=== PATIENT | male | born 1955 | race Caucasian/White ===

== ENCOUNTER → 2017-08-19 16:37 | Outpatient (CLI) | payer BC, SELFPAY ==
[2017-08-19 17:53] LABS: Vitamin B12 1086 pg/mL (211-911)
[2017-08-19 19:49] LABS: ALB/GLOB Ratio 0.9 RATIO (0.9-2.4); AST(SGOT) 31 U/L (15-37); Alanine Aminotransfer ALT/SGPT 52 U/L (16-61); Albumin, Serum 3.7 g/dL (3.2-5.0); Alkaline Phosphatase 72 U/L (45-117); Anion Gap 12 (5-15); BUN 22 mg/dL (7-18); BUN/Creat Ratio 21.2 RATIO (10-20); Calcium,Total 8.5 mg/dL (8.5-10.1); Chloride 103 mmol/L (98-107); Creatinine, Serum 1.04 mg/dL (0.70-1.30); EST Glomerular Filtration Rate 77 mL/min (>60); Est Glom Filt Rate - Afr Amer 93 mL/min (>60); Globulin 3.9 g/dL (2.2-4.2); Glucose 223 mg/dL (74-106); Potassium 4.3 mmol/L (3.5-5.1); Protein, Total 7.6 g/dL (6.4-8.2); Sodium Level 140 mmol/L (136-145); Thyroid Stim Hormone (TSH) 1.66 uIU/mL (0.358-3.74)
== END ==
PROVIDERS: Family Provider Family Medicine; PCP Family Medicine; Visit Provider Family Medicine
DX: R74.8 Abnormal levels of other serum enzymes (principal); E29.1 Testicular hypofunction; E11.65 Type 2 diabetes mellitus with hyperglycemia
CPT/HCPCS: 36415; 80053; 82607; 82746; 84403; 84443

== ENCOUNTER → 2017-09-13 15:29 | Outpatient (CLI) | payer BC, SELFPAY ==
--- NOTE | 2017-09-13 15:31 | RAD_ITS ---
STUDY: X-RAY - RIGHT WRIST REASON FOR EXAM: Male, 62 years old. Pain TECHNIQUE: 3 view(s) of the wrist were obtained. COMPARISON: None. FINDINGS: Normal visualized distal radius and ulna. Normal radiocarpal articulation. Normal distal radioulnar articulation. Normal carpal bones. Normal carpal articulations. Normal carpometacarpal articulation of the thumb. Normal second through fifth carpometacarpal articulations. Normal visualized metacarpal bones. The soft tissue structures are unremarkable. RAD/Wrist min 3 Views IMPRESSION: Normal x-ray examination of the wrist. Electronically Signed: Filipe Isbell MD at 22:01 EDT Tel , Service support ,
--- NOTE | 2017-09-13 15:31 | RAD_ITS ---
STUDY: X-RAY - LEFT WRIST REASON FOR EXAM: Male, 62 years old. Pain TECHNIQUE: 3 view(s) of the wrist were obtained. COMPARISON: None. FINDINGS: Prominent ossification at the dorsal aspect of the carpometacarpal joints may represent carpal boss. Normal visualized distal radius and ulna. Normal radiocarpal articulation. Normal distal radioulnar articulation. Normal carpal bones. Normal carpal articulations. Normal carpometacarpal articulation of the thumb. Normal visualized metacarpal bones. The soft tissue structures are unremarkable. RAD/Wrist min 3 Views IMPRESSION: Suggestion of carpal boss Electronically Signed: Filipe Isbell MD at 22:02 EDT Tel , Service support ,
== END ==
PROVIDERS: Family Provider Family Medicine; PCP Family Medicine; Visit Provider Orthopaedic Surgery
DX: M25.532 Pain in left wrist (principal); M25.531 Pain in right wrist
CPT/HCPCS: 73110

== ENCOUNTER 2017-09-21 11:19 | Day surgery (SDC) | payer BC, SELFPAY ==
[2017-09-21 11:47] VITALS: BP 135/77; PULSE 92; RESP 14; TEMP 36.6; O2SAT 100; BMI 44.4
[2017-09-21 12:31] LABS: Bedside Glucose 162 mg/dL (70-110)
[2017-09-21] MEDS: Cefazolin 2 GM in 0.9% Normal Saline 100 ML IV (13:54)
--- NOTE | 2017-09-21 14:08 | PCM.DC.ORTHO ---
Discharge Diet: No Restrictions - keep dressing clean, dry, and intact; follow up in 2 weeks, call with concerns Discharge Activity: May Not Drive May shower in (days): 1 Ice area for (Minutes): 20 - Every hour while awake. Weight Bearing Status: Weight bearing as tolerated Keep extremity elevated above heart level: Operative Extremity Call your doctor if your incision/area has: Continuous Slow Oozing, Sudden Increased Bleeding, Increased Pain/ Swelling, Increased Redness, Foul Smelling Discharge Call your doctor if you observe: Fever of 101 or Higher, Coldness, Increased Pain, Numbness or Tingling, Change in Color, Calf discomfort Allergies/Adverse Reactions: Allergies No Known Allergies Allergy (Verified 09/19/17 14:09) Medications to take at Discharge Metformin HCl [Glucophage] 500 mg PO BIDCM 12/06/14 Sertraline HCl [Zoloft] 100 mg PO DAILY 12/06/14 Testosterone [Androgel] 5 gm TD DAILY 12/06/14 buPROPion XL [Wellbutrin Xl] 150 mg PO DAILY 12/06/14 losartan 25 mg tablet 25 mg PO DAILY tab 07/12/17 gabapentin 300 mg capsule 300 mg PO TID 09/13/17 Aspirin E.C. [Ecotrin] 81 mg PO DAILY@0800 09/19/17 Empagliflozin [Jardiance] 25 mg PO DAILY 09/19/17 Gluc/Bebeto-MSM#1/C/David/Adonis/Bor [Osteo Bi-Flex Caplet] 1 each PO BID 09/19/17 Ibuprofen [Motrin] 400 mg PO DAILY 09/19/17 Liraglutide [Victoza 2-Tutu] 18 mg SQ DAILY 09/19/17 Melatonin/Pyridoxine HCl (B6) [Melatonin 3 mg Tablet] 1 each PO QHS PRN 09/19/17 Multivitamin [Multiple Vitamins] 1 each PO DAILY 09/19/17 Niacinamide [Niacin] 1,000 mg PO QHS 09/19/17 Acetaminophen/Codeine #3 [Tylenol #3 Tablet] 1 - 2 tablet PO Q6H PRN PRN #30 tablet 09/21/17 The following prescriptions were given: Acetaminophen/Codeine #3 [Tylenol #3 Tablet] 1 - 2 tablet PO Q6H PRN PRN #30 tablet PRN Reason: Pain Primary Care Physician: Cornelius Monteiro MD [Primary Care Provider] - Please Follow Up With: Fauzia Garcia, - [phone]
--- NOTE | 2017-09-21 14:30 | OP.PCM_ITS ---
Report of Operation Date of Procedure: 09/21/17 Pre-Operative Diagnosis: bilateral carpal tunnel syndrome Post-Operative Diagnosis: same Surgery/Procedure Performed:: right carpal tunnel release, left carpal tunnel injection Type of Anesthesia:: Wilian Navarro Anesthesiologist: Sherwin Ward Estimated Blood Loss (mL): none Fluids Replaced: 500cc Description of Procedure: Preoperative note Patient is a 62 yo male} patient with nerve conduction study confirming bilateral carpal tunnel syndrome. Patient failed conservative treatment for this carpal tunnel elected proceed with right carpal tunnel release. Risks benefits and alternatives surgery discussed with patient. Risks including but not limited to blood loss, blood clot, infection, neurovascular injury, failure procedure, loss of life and loss of limb. Patient is aware like proceed with right carpal tunnel release left carpal tunnel injection . Operative note Patient seen and examined preoperative holding area. Right hand was marked. History and physical and consent reviewed. Patient was brought to the operating room placed supine on the operating table. Sign in, anesthesia, antibiotics were administered. Right upper extremity was prepped and draped after Wilian block was initiated. All bony prominences well-padded SCDs placed on bilateral lower extremities. We marked out our incisions for our carpal tunnel release at the intersection of Selin's line in the fourth ray flexed. We extended about a centimeter and a half. Timeout was performed. We then checked ensure that the [place] block was working with pickups which it was. We then used a 15 blade to make a skin incision. We then dissected down tenotomy syllable of the transverse carpal ligament. We then used a new 15 blade cut through the transverse carpal ligament down to the level of the median nerve. We then further released the median nerve the combination of the 15 blade and tenotomies. The nerve was grayish in color and adherent to the transverse carpal ligament volarly. We released the transverse carpal ligament distally to the fat pad and then proximally under standard technique. We then palpated to ensure that we released all of the transverse carpal ligament which we did. We irrigated the incision with copious amounts of sterile saline. All bleeders were coagulated. The incision was closed with interrupted 4-0 nylon stitches. Tourniquet was deflated for total working time of 20 minutes. We then injected the left carpal tunnel under sterile technique Band-Aid was applied to injection site. Patient tolerated procedure well there were no complications. Patient transferred to recovery room in stable condition. Postoperative note Hospital pharmacy has prescription Leave dressing clean dry and intact Follow-up in 2 weeks This note was generated with [employer] dictation software. It may contain incorrect words, spelling, and punctuation that were not noted in checking the note before signing.
[2017-09-21] MEDS: Bupivacaine Mpf 0.5% 30 ML VIAL (14:35)
[2017-09-21] MEDS: Triamcinolone Acetonide 40 MG/ML Vial (14:35)
[2017-09-21] MEDS: Mupirocin Ointment 22gm Tube 1 APPLIC (14:36)
[2017-09-21 14:45] VITALS: BP 135/77; BP 137/91; PULSE 89; RESP 18; TEMP 36.7; O2SAT 100
[2017-09-21 14:50] VITALS: BP 135/77; BP 136/91; PULSE 89; RESP 18; O2SAT 98
[2017-09-21 14:55] VITALS: BP 132/90; BP 135/77; PULSE 87; RESP 18; O2SAT 98
[2017-09-21 15:00] VITALS: BP 133/86; BP 135/77; PULSE 84; RESP 18; TEMP 36.8; O2SAT 98
[2017-09-21 15:39] VITALS: BP 135/77
== END 2017-09-21 15:40 | disposition home or self-care (01) ==
LOC: SDC 11:19 → AC 11:22
PROVIDERS: Family Provider Family Medicine; PCP Family Medicine; Visit Provider Orthopaedic Surgery
PROC: (CPT 64721; principal; 2017-09-21 12:50)
DX: G56.03 Carpal tunnel syndrome, bilateral upper limbs (principal); E11.9 Type 2 diabetes mellitus without complications; F32.9 Major depressive disorder, single episode, unspecified; I10 Essential (primary) hypertension
CPT/HCPCS: 01810; 20526; 64721; 82962; J7120

== ENCOUNTER → 2018-02-11 08:27 | Outpatient (CLI) | payer BC, SELFPAY ==
[2018-02-11 09:29] LABS: AST(SGOT) 29 U/L (15-37); Alanine Aminotransfer ALT/SGPT 42 U/L (16-61); Albumin, Serum 3.6 g/dL (3.2-5.0); Alkaline Phosphatase 70 U/L (45-117); Anion Gap 11 (5-15); BUN 16 mg/dL (7-18); BUN/Creat Ratio 17.3 RATIO (10-20); Calcium,Total 8.5 mg/dL (8.5-10.1); Chloride 105 mmol/L (98-107); Cholesterol 159 mg/dL (200); Creatinine, Serum 0.92 mg/dL (0.70-1.30); EST Glomerular Filtration Rate 88 mL/min (>60); Est Glom Filt Rate - Afr Amer 107 mL/min (>60); Globulin 3.7 g/dL (2.2-4.2); Glucose 144 mg/dL (74-106); High Density Lipoprotein 36 mg/dL; Potassium 4.2 mmol/L (3.5-5.1); Protein, Total 7.3 g/dL (6.4-8.2); Sodium Level 142 mmol/L (136-145); Triglycerides 308 mg/dL; Very Low Density Lipoprotein 62 mg/dL (5-40)
== END ==
PROVIDERS: Family Provider Family Medicine; PCP Family Medicine; Visit Provider Family Medicine
DX: E29.1 Testicular hypofunction (principal); E11.65 Type 2 diabetes mellitus with hyperglycemia
CPT/HCPCS: 36415; 80053; 80061; 84403

== ENCOUNTER → 2018-10-28 09:49 | Outpatient (CLI) | payer BC, SELFPAY ==
[2018-10-28 10:56] LABS: ALB/GLOB Ratio 0.9 RATIO (0.9-2.4); AST(SGOT) 21 U/L (15-37); Alanine Aminotransfer ALT/SGPT 33 U/L (16-61); Albumin, Serum 3.5 g/dL (3.2-5.0); Alkaline Phosphatase 68 U/L (45-117); Anion Gap 7 (5-15); BUN 22 mg/dL (7-18); BUN/Creat Ratio 24.9 RATIO (10-20); Calcium,Total 8.2 mg/dL (8.5-10.1); Chloride 104 mmol/L (98-107); Cholesterol 155 mg/dL (200); Creatinine, Serum 0.88 mg/dL (0.70-1.30); EST Glomerular Filtration Rate 93 mL/min (>60); Est Glom Filt Rate - Afr Amer 112 mL/min (>60); Globulin 3.7 g/dL (2.2-4.2); Glucose 140 mg/dL (74-106); High Density Lipoprotein 38 mg/dL; PSA,Total - Annual Screen 0.66 ng/mL (0.00-4.00); Potassium 4.3 mmol/L (3.5-5.1); Protein, Total 7.2 g/dL (6.4-8.2); Sodium Level 139 mmol/L (136-145); Triglycerides 392 mg/dL; Very Low Density Lipoprotein 78 mg/dL (5-40)
== END ==
PROVIDERS: Family Provider Family Medicine; PCP Family Medicine; Referring Provider Family Medicine; Visit Provider Family Medicine
DX: E11.65 Type 2 diabetes mellitus with hyperglycemia (principal); R36.1 Hematospermia
CPT/HCPCS: 36415; 80053; 80061; 84153; G0103

== ENCOUNTER → 2019-06-30 07:15 | Outpatient (CLI) | payer BC, SELFPAY ==
[2019-06-30 08:35] LABS: Hematocrit 42.8 % (40-54); Hemoglobin 13.7 g/dL (13.0-16.5); Mean Corpuscular Hgb 29.3 pg (27.0-32.0); Mean Corpuscular Volume 91.6 fL (80-94); Mean Platelet Vol. 9.8 fl (6.2-12.0); Platelet Count 250 K/mm3 (150-450); RBC Distribution Width CV 13.2 % (11.6-14.6); RBC Distribution Width SD 44.2 fl (35.1-43.9); Red Blood Count 4.67 M/mm3 (4.6-6.2); White Blood Count 7.6 K/mm3 (4.4-11.0)
[2019-06-30 09:28] LABS: AST(SGOT) 25 U/L (15-37); Alanine Aminotransfer ALT/SGPT 34 U/L (16-61); Albumin, Serum 3.8 g/dL (3.2-5.0); Alkaline Phosphatase 71 U/L (45-117); Anion Gap 5 (5-15); BUN 16 mg/dL (7-18); BUN/Creat Ratio 18.8 RATIO (10-20); Calcium,Total 8.6 mg/dL (8.5-10.1); Chloride 107 mmol/L (98-107); Cholesterol 130 mg/dL (200); Creatinine, Serum 0.85 mg/dL (0.70-1.30); EST Glomerular Filtration Rate 96 mL/min (>60); Est Glom Filt Rate - Afr Amer 117 mL/min (>60); Globulin 3.8 g/dL (2.2-4.2); Glucose 150 mg/dL (74-106); High Density Lipoprotein 40 mg/dL; Potassium 4.1 mmol/L (3.5-5.1); Protein, Total 7.6 g/dL (6.4-8.2); Sodium Level 141 mmol/L (136-145); Thyroid Stim Hormone (TSH) 1.48 uIU/mL (0.358-3.74); Triglycerides 132 mg/dL; Very Low Density Lipoprotein 26 mg/dL (5-40)
[2019-07-02 09:02] LABS: Vitamin B12 558 pg/mL (211-911)
== END ==
PROVIDERS: Family Provider Family Medicine; PCP Family Medicine; Referring Provider Family Medicine; Visit Provider Family Medicine
DX: E29.1 Testicular hypofunction (principal); E11.65 Type 2 diabetes mellitus with hyperglycemia; G62.9 Polyneuropathy, unspecified
CPT/HCPCS: 36415; 80053; 80061; 82607; 84403; 84443; 85027

== ENCOUNTER 2019-10-26 18:42 | Emergency (ER) | payer BC, SELFPAY ==
[2019-10-26 18:43] VITALS: BP 155/81; PULSE 57; RESP 18; TEMP 36.8; O2SAT 98
[2019-10-26 18:44] VITALS: BP 155/81; PULSE 100; RESP 18; TEMP 36.8; O2SAT 98; BMI 38.5
--- NOTE | 2019-10-26 19:24 | EKG12_ITS ---
Test Reason : CP Blood Pressure : / mmHG Vent. Rate : 086 BPM Atrial Rate : 086 BPM P-R Int : 174 ms QRS Dur : 110 ms QT Int : 348 ms P-R-T Axes : 059 004 019 degrees QTc Int : 416 ms Sinus rhythm with occasional Premature ventricular complexes Otherwise normal ECG Confirmed by MONICA MALAVE, ERVIN ([id number]), editorial cartoonist AMI RAYGOZA ([id number]) on 10/29/2019 10:10:56 AM Referred By: KELLY Confirmed By:ERVIN ANDERSON MD
[2019-10-26] MEDS: Aspirin 81 MG TAB.CHEW 324 MG PO (19:48)
--- NOTE | 2019-10-26 19:49 | ED.VIS.GEN ---
History of Present Illness Chief Complaint: Chest Other Detail of Chief Complaint: Fever, chest heaviness Informant: Patient Onset: Days Narrative: Patient presents with fever for the past 3 days. T-max has been 102. 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 He is unsure if this is related to his fever. Fever has been well controlled with Tylenol and ibuprofen. Today he has noted some chest heaviness. He declines to call this chest pain. He does not have cough. He states he had some mild shortness of breath when walking up the hill to the emergency entrance, but otherwise has not noted shortness of breath today. He denies history of cardiac disease. No history of PE. - Past Medical History (1) Diabetes Status: Chronic (2) Hypertension Status: Chronic Past Medical History - Allergies and Home Meds Allergies/Adverse Reactions: Allergies No Known Allergies Allergy (Verified 10/26/19 18:43) Primary Care Physician: Cornelius Monteiro MD [Primary Care Provider] - Prior records reviewed: Yes Smoking Status: Never smoker Review of Systems General: Reports: Fever Eyes: Denies: Visual changes - bilaterally ENT: Denies: Bilateral ear pain Cardiovascular: Reports: Chest pain. Denies: Palpitations, Heart racing Respiratory: Reports: Dyspnea - With exertion up a hill. Denies: Cough Gastrointestinal: Denies: Abdominal pain, Nausea, Vomiting, Diarrhea Musculoskeletal: Reports: Swelling, Extremity Pain Skin: Reports: Wounds Neurological: Denies: Headache Hematologic: Denies: Easy bruising, Easy bleeding Allergy: Denies: Uticaria Physical Exam Vital Signs/Narrative: Vital Signs Temp Pulse Resp BP Pulse Ox 10/26/19 18:44 98.3 F 100 18 155/81 H 98 10/26/19 18:43 98.3 F 57 L 18 155/81 H 98 Inital Vital Signs reviewed: Yes General: Well nourished, Well developed Head: Normocephalic ENT: Moist mucous membranes Neck: Supple Cardiovascular: Regular rate, Regular rhythm Respiratory: No distress, CTA bilaterally Abdomen: Soft, Nontender Extremities: - - Patient does have a round small ulceration to the left anterior lower knee. No fluctuance or drainage noted. He does have evidence of cellulitis to the left lower extremity. Calf is swollen and slightly tense. Strong distal pulses are noted. Neurological: Alert, Oriented x3 Psychological: Normal affect Diagnostic/Tx/Re-eval Impressions Chest X-Ray 10/26/19 19:54 IMPRESSION: Normal x-ray examination of the chest. Electronically Signed: Aman Garcia, at 20:41 EDT Tel , Service support , 10/26/19 19:54 Chest 1 View (Portable) [RAD] Stat Laboratory Results 10/26/19 10/26/19 10/26/19 19:45 19:45 19:45 WBC 9.2 RBC 4.64 Hgb 13.3 Hct 41.4 MCV 89.2 MCH 28.7 MCHC 32.1 RDW Std Deviation 46.8 H RDW Coeff of Nanci 14.6 Plt Count 187 MPV 9.8 Immature Gran % (Auto) 0.500 Neut % (Auto) 68.4 Lymph % (Auto) 19.9 [place] % (Auto) 10.4 H Eos % (Auto) 0.4 Baso % (Auto) 0.4 Absolute Neuts (auto) 6.3 Absolute Lymphs (auto) 1.83 Nucleated RBC % 0 Sodium 137 Potassium 3.5 Chloride 103 Carbon Dioxide 29.0 Anion Gap 5 BUN 18 Creatinine 0.94 Estim Creat Clear Calc 83.05 Est GFR (MDRD) Af Amer 104 Est GFR (MDRD) Non-Af 86 BUN/Creatinine Ratio 19.1 Glucose 111 H Lactic Acid 1.6 Calcium 8.7 Troponin I < 0.015 - EKG Initial EKG Interpretation: Sinus Rhythm - Sinus at 86 with occasional PVCs. No acute ischemia. - Medical Decision Making Patient was given aspirin on arrival. Laboratory evaluation is reviewed with the patient. Chest x-ray is normal. Cardiac enzymes are negative. Venous ultrasound of the left leg was also obtained and does not really show evidence of clots. I do feel the patient's fever is coming from the leg infection. He will be treated with Bactrim and Keflex, first doses given here. 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 ED Disposition - Plan for ED Patient: Disposition: Home or Assisted Living Diagnosis: Cellulitis Instructions: ED Cellulitis Prescriptions: Smz/Tmp Ds [Bactrim Ds] 1 tab PO BID #20 tab Transmission Status: Pending to [facility] Cephalexin [Keflex] 500 mg PO Q6 #40 cap Transmission Status: Pending to [facility] Referrals: Cornelius Monteiro MD [Primary Care Provider] - 5-7 Days
--- NOTE | 2019-10-26 19:54 | RAD_ITS ---
STUDY: X-RAY CHEST REASON FOR EXAM: Male, 64 years old. chest pain with sob TECHNIQUE: Portable chest COMPARISON: CT abdomen and pelvis 12/06/2014. FINDINGS: The lungs are clear and expanded. There is no demonstrated pleural abnormality. Normal size heart. Normal mediastinum and bon. Normal visualized pulmonary arteries. Normal visualized aortic arch and descending thoracic aorta. Normal visualized thoracic spine. Normal visualized ribs, clavicles, and shoulders. There is no demonstrated abnormality of the visualized soft tissue structures of the upper abdomen. RAD/Chest 1 View (Portable) IMPRESSION: Normal x-ray examination of the chest. Electronically Signed: Aman Garcia, at 20:41 EDT Tel , Service support ,
[2019-10-26 20:03] LABS: Absolute Lymphocyte Count 1.83 X10^3/uL (0.83-4.51); Absolute Neutrophil Count 6.3 X10^3/uL (2.0-7.7); Basophil# 0.04 X10^3/uL; Basophil% 0.4 % (0-1); Eosinophil# 0.04 X10^3/uL; Eosinophils% 0.4 % (0-5); Hematocrit 41.4 % (40-54); Hemoglobin 13.3 g/dL (13.0-16.5); Lymphocyte # 1.83 X10^3/ul (4.0); Lymphocyte % 19.9 % (19-41); Mean Corp Hgb Conc 32.1 g/dL (32-36); Mean Corpuscular Hgb 28.7 pg (27.0-32.0); Mean Corpuscular Volume 89.2 fL (80-94); Mean Platelet Vol. 9.8 fl (6.2-12.0); Monocyte# 0.96 X10^3/uL; Monocyte% 10.4 % (0-10); NRBC Flagged by Analyzer 0 % (0-5); Neutrophil # 6.29 X10^3/uL (2.7-7.7); Neutrophil % 68.4 % (47-70); Platelet Count 187 K/mm3 (150-450); RBC Distribution Width CV 14.6 % (11.6-14.6); RBC Distribution Width SD 46.8 fl (35.1-43.9); Red Blood Count 4.64 M/mm3 (4.6-6.2); White Blood Count 9.2 K/mm3 (4.4-11.0)
--- NOTE | 2019-10-26 20:15 | US_ITS ---
STUDY: VENOUS DOPPLER ULTRASOUND - LEFT LOWER EXTREMITY REASON FOR EXAM: Male, 64 years old. LEFT LEG SWELLING TECHNIQUE: Ultrasound evaluation of the deep vein system to include goldtsein-scale imaging and compression was performed. Goldstein-scale imaging and Doppler sonographic evaluation, including duplex spectral analysis and qualitative color flow sonography, was performed. COMPARISON: None. FINDINGS: Common Femoral Vein: Normal compression, spontaneity and augmentation. Normal color Doppler. Common Femoral Vein/Greater Saphenous Junction: Normal compression, spontaneity and augmentation. Normal color Doppler. Femoral Proximal: Normal compression, spontaneity and augmentation. Normal color Doppler. Femoral Middle: Normal compression, spontaneity and augmentation. Normal color Doppler. Femoral Distal: Normal compression, spontaneity and augmentation. Normal color Doppler. Popliteal Vein: Normal compression, spontaneity and augmentation. Normal color Doppler. Posterior Tibial Vein: Limited evaluation due to a cutaneous edema Normal compression, spontaneity and augmentation. Normal color Doppler. Peroneal Vein: Limited evaluation due to subcutaneous edema Normal compression, spontaneity and augmentation. Normal color Doppler. There is subcutaneous edema of the left lower extremity. there is normal flow, compression and augmentation of the right common femoral vein. US/Venous Duplex Imag/Limited/Uni IMPRESSION: No Deep venous thrombosis Limited evaluation of the posterior tibial and peroneal veins due to subcutaneous edema. Electronically Signed: Aman Garcia, at 22:11 EDT Tel , Service support ,
[2019-10-26 20:18] LABS: Anion Gap 5 (5-15); BUN 18 mg/dL (7-18); BUN/Creat Ratio 19.1 RATIO (10-20); Calcium,Total 8.7 mg/dL (8.5-10.1); Chloride 103 mmol/L (98-107); Creatinine, Serum 0.94 mg/dL (0.70-1.30); EST Glomerular Filtration Rate 86 mL/min (>60); Est Glom Filt Rate - Afr Amer 104 mL/min (>60); Estimated Creatinine Clearance 83.05 ml/min; Glucose 111 mg/dL (74-106); Potassium 3.5 mmol/L (3.5-5.1); Sodium Level 137 mmol/L (136-145)
[2019-10-26 20:23] LABS: Lactic Acid 1.6 mmol/L (0.4-1.9)
[2019-10-26 20:43] VITALS: BP 103/83; PULSE 97; RESP 21; O2SAT 100
[2019-10-26 21:49] VITALS: BP 120/73; PULSE 97; RESP 18; O2SAT 96
[2019-10-26] MEDS: Smz/Tmp Ds Tablet 1 TABLET PO (21:50)
[2019-10-26] MEDS: Cephalexin 250 MG Capsule 500 MG PO (21:50)
== END 2019-10-26 21:53 | disposition home or self-care (01) ==
PROVIDERS: Emergency Provider Emergency Medicine; PCP Family Medicine
DX: L03.116 Cellulitis of left lower limb (principal); E11.9 Type 2 diabetes mellitus without complications; I10 Essential (primary) hypertension
CPT/HCPCS: 71045; 80048; 83605; 84484; 85025; 87040; 93005; 93971; 99284; A4216

== ENCOUNTER → 2020-03-21 11:08 | Outpatient (CLI) | payer BC, SELFPAY ==
[2020-03-21 12:43] LABS: ALB/GLOB Ratio 0.9 RATIO (0.9-2.4); AST(SGOT) 14 U/L (15-37); Alanine Aminotransfer ALT/SGPT 20 U/L (16-61); Albumin, Serum 3.5 g/dL (3.2-5.0); Alkaline Phosphatase 61 U/L (45-117); Anion Gap 6 (5-15); BUN 16 mg/dL (7-18); BUN/Creat Ratio 19.7 RATIO (10-20); Calcium,Total 8.7 mg/dL (8.5-10.1); Chloride 105 mmol/L (98-107); Cholesterol 136 mg/dL (200); Creatinine, Serum 0.81 mg/dL (0.70-1.30); EST Glomerular Filtration Rate 102 mL/min (>60); Est Glom Filt Rate - Afr Amer 123 mL/min (>60); Globulin 3.8 g/dL (2.2-4.2); Glucose 109 mg/dL (74-106); High Density Lipoprotein 37 mg/dL; PSA,Total - Annual Screen 0.79 ng/mL (0.00-4.00); Potassium 3.8 mmol/L (3.5-5.1); Protein, Total 7.3 g/dL (6.4-8.2); Sodium Level 140 mmol/L (136-145); Thyroid Stim Hormone (TSH) 1.09 uIU/mL (0.358-3.74); Triglycerides 172 mg/dL; Very Low Density Lipoprotein 34 mg/dL (5-40)
== END ==
PROVIDERS: PCP Family Medicine; Referring Provider Family Medicine; Visit Provider Family Medicine
DX: E11.65 Type 2 diabetes mellitus with hyperglycemia (principal); E29.1 Testicular hypofunction
CPT/HCPCS: 36415; 80053; 80061; 84153; 84403; 84443; G0103

== ENCOUNTER → 2020-06-17 17:50 | Outpatient (CLI) | payer BC, SELFPAY | PROVIDERS: PCP Family Medicine; Visit Provider Family Medicine | DX: Z20.828 Contact with and (suspected) exposure to other viral communicable diseases (principal) | CPT/HCPCS: 87635; U0003 ==

== ENCOUNTER 2020-11-25 07:20 | Emergency (ER) | payer BC, SELFPAY ==
[2020-11-25 07:21] VITALS: BP 166/89; PULSE 100; RESP 16; TEMP 35.9; O2SAT 96; BMI 40.1
[2020-11-25 07:24] VITALS: BP 166/89; PULSE 100; RESP 16; TEMP 35.9; O2SAT 96
[2020-11-25 07:32] VITALS: BP 147/92; PULSE 72; RESP 18; O2SAT 96
--- NOTE | 2020-11-25 07:32 | CT_ITS ---
STUDY: CT ABDOMEN AND PELVIS WITHOUT CONTRAST REASON FOR EXAM: Male, 65 years old. Right flank pain. Dysuria. History of kidney stones. RADIATION DOSAGE (If Supplied By Facility): CTDIvol = ( 26.59 ) mGy, DLP = ( 1313.05 ) mGycm TECHNIQUE: Transaxial images were obtained from the dome of the diaphragm to the symphysis pubis without oral contrast, and without intravenous contrast. Sagittal and coronal images were reconstructed. Individualized dose optimization techniques were used for this CT. COMPARISON: Comparison is made with prior study dated 12/06/2014. FINDINGS: The visualized lung bases are unremarkable. The visualized portions of the heart are within normal limits. There is decreased attenuation of the liver consistent with steatosis. Normal gallbladder and extrahepatic biliary system. There are multiple benign calcified granulomata of the spleen. There is diffuse atrophy of the pancreas. Normal bilateral adrenal glands. There is a mild right perinephric stranding. There is engorgement of the right kidney. Punctate calcification in the lower pole calyx of the right kidney. Mild degree of the right hydronephrosis due to a 2.5 mm calculus in the proximal portion of the right ureter just distal to the ureteral pelvic junction. Normal left kidney. There is a small hiatal hernia. Normal small intestine. Normal colon. The appendix is visualized and appears normal. Normal abdominal aorta. Normal inferior vena cava. Normal retroperitoneum. Normal urinary bladder. Normal abdominal wall. There are diffuse degenerative changes of the visualized lumbar spine. CT/Abdomen/Pelvis without Cont IMPRESSION: Mild degree of right perinephric stranding and engorgement of the right kidney. 2.5 mm calculus in the proximal portion of the right ureter just distal to the right ureteropelvic junction. Fatty infiltration of the liver. Atrophy of the pancreas. Electronically Signed: Mario Bell MD at 8:18 EDT , Service support ,
--- NOTE | 2020-11-25 07:32 | ED.VIS.GI ---
HPI HPI - GI History of Present Illness Chief Complaint: Flank Pain Narrative Narrative: Patient presenting for evaluation secondary to flank pain and concern for kidney stone. Patient does have a history of prior kidney stone in the past, approximately 10 years ago. Patient states that he developed symptoms yesterday that are consistent with his prior kidney stone. Is associated with right-sided flank pain that radiates down to his right groin. He states that it is a sharp type pain. Patient states that it also has been associated with some urinary hesitancy, he denies any hematuria. Denies any fevers. Denies nausea vomiting or diarrhea associated with this. No real exacerbating relieving factors. Review of systems otherwise negative. [facility] Medical History Diabetes Hypertension Home Medications metformin 500 mg PO BIDCM 12/06/14 [History Last Taken Unknown] testosterone 5 gm TD DAILY 12/06/14 [History Last Taken Unknown] losartan 25 mg tablet 25 mg PO DAILY tab 07/12/17 [History Last Taken 09/21/17 07:30 1] gabapentin 300 mg capsule 300 mg PO TID 09/13/17 [History Last Taken Unknown] Liraglutide [Victoza 2-Tutu] 18 mg SQ DAILY 09/19/17 [History Last Taken 09/19/17 21:00 1] [id number] [Osteo Bi-Flex Caplet] 1 ea PO BID 09/19/17 [History Last Taken 09/20/17 07:00 1] ibuprofen 400 mg PO DAILY 09/19/17 [History Last Taken Unknown] multivitamin [Multiple Vitamins] 1 ea PO DAILY 09/19/17 [History Last Taken Unknown] cephalexin 500 mg PO Q6 #40 cap 10/26/19 [Rx Last Taken Unknown] sulfamethoxazole-trimethoprim 1 tab PO BID #20 tab 10/26/19 [Rx Last Taken Unknown] hydrocodone-acetaminophen 1 tab PO Q6H PRN PRN 3 Days #12 tablet 11/25/20 [Rx Last Taken Unknown] sulfamethoxazole-trimethoprim [Bactrim DS] 1 tab PO BID #20 tab 11/25/20 [Rx Last Taken Unknown] tamsulosin [Flomax] 0.4 mg PO DAILY #7 cap 11/25/20 [Rx Last Taken Unknown] Allergy/AdvReac Type Severity Reaction Status Date / Time No Known Allergies Allergy Verified 11/25/20 07:21 Family History Father Diabetes Cancer Mother CAD (coronary artery disease) Brother Cancer Surgical History H/O hernia repair s/p right carpal tunnel release Social History Smoking Status: Never smoker ROS ROS ED Constitutional Constitutional ED: Denies chills or fever(s) ENT ENT ED: Denies sore throat Cardiovascular Cardiovascular: Denies chest pain Respiratory/Chest Respiratory/Chest: Denies cough or dyspnea Gastrointestinal Gastrointestinal: Denies abdominal pain, constipation, diarrhea or nausea Genitourinary Genitourinary ED: Reports other Details: Decreased urine, flank pain ; Denies dysuria, hematuria or urinary frequency Musculoskeletal Musculoskeletal: Denies myalgias Integumentary Denies rash Neurologic Neurologic: Denies paresthesias or weakness Psychiatric Psychiatric: Denies depression Endocrine Endocrinology: Denies polyuria Hematologic/Lymphatic Hematologic/Lymphatic: Denies easy bleeding or easy bruising Allergic/Immunologic Allergic/Immunologic ED: Denies urticaria EXAM Physical Exam Const Vital Signs: 11/25/20 07:21 11/25/20 07:24 Temperature 96.7 F L 96.7 F L Temperature Source Temporal Temporal Pulse Rate 100 100 Respiratory Rate 16 16 Blood Pressure 166/89 H 166/89 H Blood Pressure Mean 114 114 Pulse Ox 96 96 Oxygen Delivery Method Room Air Room Air Positive well nourished, well developed and obese General Appearance ED: well developed and NAD Nutritional Appearance: obese HEENT normocephalic and atraumatic Eyes EOMs intact bilaterally General Eye ED: Negative for pale conjunctiva or scleral icterus Neck supple Resp normal respiratory effort and clear to auscultation bilaterally Cardio regular rhythm, no murmurs and peripheral pulses 2+ throughout Cardio Narrative: 2+ radial pulses bilaterally symmetric Rate: tachycardic GI non-tender, non-distended and no masses GI Narrative: Patient complains of a pressure sensation with palpation of his right abdomen but this is not tenderness and its not associated with a guarding rebound or rigidity. Palpation: soft; Negative for guarding, rigid or rebound tenderness present Extremity full ROM Extremity Narrative: 2+ DP pulses bilaterally symmetric General Extremety ED: Negative for edema General Extremity: Negative for edema Neuro moves all extremities and no sensory deficits noted Sensorium / Orientation: alert, oriented to person, oriented to place and oriented to time Motor Exam: strength 5/5 throughout Psych mental status grossly normal Skin Rashes: no rashes MDM MDM MDM Narrative Medical decision making narrative: Patient presented for evaluation secondary to flank pain. Patient stated that this was consistent with prior kidney stones. Patient was treated with Zofran Toradol and fluids in the emergency department repeat evaluation showed almost complete resolution of the patient's pain. Patient does not have evidence of leukocytosis, his chemistry panel shows no electrolyte derangement but does show a mild elevation of his creatinine from 0.8-1.1. Patient's urine test demonstrates greater than 100 reds, 50-100 whites, and 3+ bacteria. This was cultured and pelvis demonstrates a 2-1/2 mm proximal right-sided ureteral stone with some hydronephrosis. Patient at this point does not have signs of sepsis, I do believe that he is appropriate for outpatient management. Patient was given a dose of Rocephin in the emergency department. Patient will be discharged with a course of [place], Flomax, and Bactrim. He was given strict return instructions, he will follow up with urology. Lab Data Labs: Laboratory Results - last 24 hr 11/25/20 11/25/20 11/25/20 07:35 07:35 09:00 WBC 7.4 RBC 4.92 Hgb 14.5 Hct 45.6 MCV 92.7 MCH 29.5 MCHC 31.8 L RDW Std Deviation 46.2 H RDW Coeff of Nanci 13.7 Plt Count 206 MPV 9.7 Immature Gran % (Auto) 0.700 Neut % (Auto) 65.8 Lymph % (Auto) 21.5 Terry % (Auto) 10.5 H Eos % (Auto) 0.8 Baso % (Auto) 0.7 Absolute Neuts (auto) 4.9 Absolute Lymphs (auto) 1.60 Nucleated RBC % 0 Sodium 137 Potassium 3.6 Chloride 106 Carbon Dioxide 25.0 Anion Gap 6 BUN 18 Creatinine 1.11 Estim Creat Clear Calc 69.42 Est GFR (MDRD) Af Amer 86 Est GFR (MDRD) Non-Af 71 BUN/Creatinine Ratio 16.2 Glucose 213 H Calcium 8.1 L Urine Color Brown Urine Clarity Cloudy Urine pH 5.0 Ur Specific [place] 1.025 Urine Protein 30 H Urine Glucose (UA) 100 H Urine Ketones 5 H Urine Occult Blood 250 H Urine Nitrite Negative Urine Bilirubin Negative Urine Urobilinogen Normal Ur Leukocyte Esterase 100 H Urine RBC > 100 SEEN Urine WBC 50-100 SEEN Ur Squamous Epith Cells 0 SEEN Amorphous Sediment 2+ Urine Bacteria 3+ Urine Mucus 0 SEEN Radiography Diagnostic Testing: Radiology Impression Abdomen/Pelvis CT 11/25/20 07:32 IMPRESSION: Mild degree of right perinephric stranding and engorgement of the right kidney. 2.5 mm calculus in the proximal portion of the right ureter just distal to the right ureteropelvic junction. Fatty infiltration of the liver. Atrophy of the pancreas. Electronically Signed: Mario Bell MD at 8:18 EDT , Service support , Discharge Plan Triage Chief Complaint: Flank Pain ED Provider: Parish Tijerina Dx/Rx/DC Orders Clinical Impression: Urolithiasis, Acute UTI Instructions: ED Bladder Infection, Male (Adult), ED Kidney Stone w/ Colic Prescriptions: New sulfamethoxazole-trimethoprim [Bactrim DS] 800-160 mg tablet 1 tab PO BID Qty: 20 RF: 0 hydrocodone-acetaminophen 5-325 mg tablet 1 tab PO Q6H PRN PRN (Reason: Pain) 3 Days Qty: 12 RF: 0 tamsulosin [Flomax] 0.4 mg capsule 0.4 mg PO DAILY Qty: 7 RF: 0 No Action losartan 25 mg tablet 25 mg PO DAILY RF: 0 gabapentin 300 mg capsule 300 mg PO TID RF: 0 metformin 500 MG tablet 500 mg PO BIDCM RF: 0 testosterone 5 GM gel in packet 5 gm TD DAILY RF: 0 multivitamin [Multiple Vitamins] 1 EACH tablet 1 ea PO DAILY RF: 0 ibuprofen 400 MG tablet 400 mg PO DAILY RF: 0 [id number]-[id number]-C-raz-bosw [Osteo Bi-Flex Triple Strength] 1 EACH tablet 1 ea PO BID RF: 0 Liraglutide [Victoza 2-Tutu] 0.6 MG/0.1 ML Ml 18 mg SQ DAILY RF: 0 sulfamethoxazole-trimethoprim 1 TABLET tablet 1 tab PO BID Qty: 20 RF: 0 cephalexin 500 MG capsule 500 mg PO Q6 Qty: 40 RF: 0 Primary Care Provider: Cornelius Monteiro Referrals: Cornelius Monteiro MD [Primary Care Provider] - Kody Palma MD [STAFF PHYSICIAN] - 3-5 Days Disposition Disposition: Home, self care
[2020-11-25] MEDS: Ondansetron 4 MG/2 ML Vial IV (07:37)
[2020-11-25] MEDS: Ketorolac 15 MG/ML Vial IV (07:37)
[2020-11-25 07:45] LABS: Absolute Neutrophil Count 4.9 X10^3/uL (2.0-7.7); Basophil# 0.05 X10^3/uL; Basophil% 0.7 % (0-1); Eosinophil# 0.06 X10^3/uL; Eosinophils% 0.8 % (0-5); Hematocrit 45.6 % (40-54); Hemoglobin 14.5 g/dL (13.0-16.5); Lymphocyte % 21.5 % (19-41); Mean Corp Hgb Conc 31.8 g/dL (32-36); Mean Corpuscular Hgb 29.5 pg (27.0-32.0); Mean Corpuscular Volume 92.7 fL (80-94); Mean Platelet Vol. 9.7 fl (6.2-12.0); Monocyte# 0.78 X10^3/uL; Monocyte% 10.5 % (0-10); NRBC Flagged by Analyzer 0 % (0-5); Neutrophil # 4.89 X10^3/uL (2.7-7.7); Neutrophil % 65.8 % (47-70); Platelet Count 206 K/mm3 (150-450); RBC Distribution Width CV 13.7 % (11.6-14.6); RBC Distribution Width SD 46.2 fl (35.1-43.9); Red Blood Count 4.92 M/mm3 (4.6-6.2); White Blood Count 7.4 K/mm3 (4.4-11.0)
[2020-11-25 08:02] LABS: Anion Gap 6 (5-15); BUN 18 mg/dL (7-18); BUN/Creat Ratio 16.2 RATIO (10-20); Calcium,Total 8.1 mg/dL (8.5-10.1); Chloride 106 mmol/L (98-107); Creatinine, Serum 1.11 mg/dL (0.70-1.30); EST Glomerular Filtration Rate 71 mL/min (>60); Est Glom Filt Rate - Afr Amer 86 mL/min (>60); Estimated Creatinine Clearance 69.42 ml/min; Glucose 213 mg/dL (74-106); Potassium 3.6 mmol/L (3.5-5.1); Sodium Level 137 mmol/L (136-145)
[2020-11-25 09:04] LABS: Mucous, Urine 0 SEEN /hpf (<or=2+); Squamous Epithelial Cells - UA 0 SEEN /hpf (0-5)
[2020-11-25 09:06] LABS: Color, Urine Brown (Yellow); Glucose, Dipstick 100 mg/dl (Normal); Ketone-Dipstick 5 mg/dl (Negative); Leukocyte Esterase-Dipstick 100 /ul (Negative); Nitrite-Dipstick Negative (Negative); Occult Blood-Urine 250 /ul (Negative); Protein-Dipstick 30 mg/dl (Negative); Specific Gravity, Urine 1.025 (1.002-1.030); Urine Bilirubin Dipstick Negative (Negative); Urine Clarity Cloudy (Clear); Urine Urobilinogen Normal (Normal)
[2020-11-25 09:13] LABS: Red Blood Cells-Urine > 100 SEEN /hpf (0-5); White Blood Cells 50-100 SEEN /hpf (0-5)
[2020-11-25 09:14] LABS: Amorphous Sediment 2+; Bacteria 3+ /hpf (None Seen)
[2020-11-25] MEDS: Ceftriaxone 1 GM/50 ML BAG IV (09:56)
[2020-11-25 09:57] VITALS: BP 147/90; PULSE 72; RESP 18; O2SAT 96
[2020-11-25 10:29] VITALS: BP 125/72; PULSE 90; RESP 18; O2SAT 98
== END 2020-11-25 10:31 | disposition home or self-care (01) ==
PROVIDERS: Emergency Provider Emergency Medicine; PCP Family Medicine
DX: N20.1 Calculus of ureter (principal); N39.0 Urinary tract infection, site not specified; K76.0 Fatty (change of) liver, not elsewhere classified; K86.89 Other specified diseases of pancreas; E66.9 Obesity, unspecified; E11.9 Type 2 diabetes mellitus without complications; I10 Essential (primary) hypertension; Z79.1 Long term (current) use of non-steroidal anti-inflammatories (NSAID); Z79.84 Long term (current) use of oral hypoglycemic drugs; Z87.442 Personal history of urinary calculi
CPT/HCPCS: 74176; 80048; 81001; 85025; 87086; 87088; 96365; 96375; 99283; J7030; A4216; J2405

== ENCOUNTER → 2021-03-10 07:13 | Outpatient (CLI) | payer BC, SELFPAY ==
[2021-03-10 11:24] LABS: ALB/GLOB Ratio 0.9 RATIO (0.9-2.4); AST(SGOT) 20 U/L (15-37); Alanine Aminotransfer ALT/SGPT 26 U/L (16-61); Albumin, Serum 3.4 g/dL (3.2-5.0); Alkaline Phosphatase 54 U/L (45-117); Anion Gap 7 (5-15); BUN 16 mg/dL (7-18); BUN/Creat Ratio 16.9 RATIO (10-20); Calcium,Total 8.5 mg/dL (8.5-10.1); Chloride 106 mmol/L (98-107); Cholesterol 129 mg/dL (200); Creatinine, Serum 0.95 mg/dL (0.70-1.30); EST Glomerular Filtration Rate 85 mL/min (>60); Est Glom Filt Rate - Afr Amer 103 mL/min (>60); Globulin 3.9 g/dL (2.2-4.2); Glucose 137 mg/dL (74-106); High Density Lipoprotein 34 mg/dL; Potassium 3.8 mmol/L (3.5-5.1); Protein, Total 7.3 g/dL (6.4-8.2); Sodium Level 138 mmol/L (136-145); Triglycerides 211 mg/dL; Very Low Density Lipoprotein 42 mg/dL (5-40)
== END ==
PROVIDERS: PCP Family Medicine; Referring Provider Family Medicine; Visit Provider Family Medicine
DX: E29.1 Testicular hypofunction (principal); E11.65 Type 2 diabetes mellitus with hyperglycemia
CPT/HCPCS: 36415; 80053; 80061; 84403

== ENCOUNTER → 2021-10-24 | Outpatient (CLI) | payer BC, SELFPAY ==
[2021-10-24 11:28] LABS: ALB/GLOB Ratio 0.9 RATIO (0.9-2.4); AST(SGOT) 17 U/L (15-37); Alanine Aminotransfer ALT/SGPT 30 U/L (16-61); Albumin, Serum 3.6 g/dL (3.2-5.0); Alkaline Phosphatase 54 U/L (45-117); Anion Gap 4 (5-15); BUN 15 mg/dL (7-18); BUN/Creat Ratio 15.6 RATIO (10-20); Calcium,Total 8.6 mg/dL (8.5-10.1); Chloride 104 mmol/L (98-107); Cholesterol 153 mg/dL (200); Creatinine, Serum 0.96 mg/dL (0.70-1.30); EST Glomerular Filtration Rate 83 mL/min (>60); Est Glom Filt Rate - Afr Amer 101 mL/min (>60); Globulin 3.8 g/dL (2.2-4.2); Glucose 148 mg/dL (74-106); High Density Lipoprotein 33 mg/dL; PSA,Total - Annual Screen 0.83 ng/mL (0.00-4.00); Potassium 4.4 mmol/L (3.5-5.1); Protein, Total 7.4 g/dL (6.4-8.2); Sodium Level 137 mmol/L (136-145); Triglycerides 456 mg/dL
== END | disposition home or self-care (01) ==
LOC: LAB 10:28
PROVIDERS: PCP Family Medicine; Visit Provider Family Medicine
DX: E11.9 Type 2 diabetes mellitus without complications (principal); Z12.5 Encounter for screening for malignant neoplasm of prostate
CPT/HCPCS: 36415; 80053; 80061; 84153; 84403; G0103

== ENCOUNTER → 2022-01-06 | Outpatient (CLI) | payer BC, SELFPAY ==
--- NOTE | 2022-01-06 16:40 | RAD_ITS ---
STUDY: X-RAY - RIGHT SHOULDER REASON FOR EXAM: Male, 66 years old. PAIN TECHNIQUE: 4 view(s) of the shoulder. COMPARISON: None. FINDINGS: Normal glenohumeral articulation. There is hypertrophic osteoarthrosis of the acromioclavicular joint with inferior osseous spur formation. Normal acromion. Degenerative spur formation along the medial aspect of the humeral head. The soft tissue structures are unremarkable. Normal visualized pulmonary apex. 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 Degenerative spurring along the humeral head. Electronically Signed: Mario Bell MD at 12:50 EDT ,
== END | disposition home or self-care (01) ==
LOC: MTRAD 16:39
PROVIDERS: PCP Family Medicine; Referring Provider Family Medicine; Visit Provider Family Medicine
DX: M25.511 Pain in right shoulder (principal)
CPT/HCPCS: 73030

== ENCOUNTER → 2022-02-17 | Outpatient (CLI) | payer BC, SELFPAY | END | disposition home or self-care (01) | PROVIDERS: PCP Family Medicine; Visit Provider Family Medicine | DX: U07.1 COVID-19 (principal) | CPT/HCPCS: 87635; U0003; U0005 ==

== ENCOUNTER 2022-03-15 03:06 | Emergency (ER) | payer BC, SELFPAY ==
[2022-03-15 03:07] VITALS: BP 203/121; PULSE 115; RESP 22; TEMP 36.1; O2SAT 96; BMI 40.9
[2022-03-15 03:35] LABS: Mucous, Urine 0 SEEN /hpf (<or=2+); Squamous Epithelial Cells - UA 0 SEEN /hpf (0-5); White Blood Cells 0 SEEN /hpf (0-5)
[2022-03-15] MEDS: Ketorolac 30 MG/ML Syringe IM (03:36)
[2022-03-15 03:54] LABS: Color, Urine Yellow (Yellow); Glucose, Dipstick Normal (Normal); Ketone-Dipstick Negative (Negative); Leukocyte Esterase-Dipstick Negative /ul (Negative); Nitrite-Dipstick Negative (Negative); Occult Blood-Urine 250 /ul (Negative); Protein-Dipstick 30 mg/dl (Negative); Specific Gravity, Urine 1.025 (1.002-1.030); Urine Bilirubin Dipstick Negative (Negative); Urine Clarity Clear (Clear); Urine Urobilinogen Normal (Normal)
[2022-03-15 04:06] LABS: Bacteria RARE /hpf (None Seen); Red Blood Cells-Urine 25-50 SEEN /hpf (0-5)
--- NOTE | 2022-03-15 04:20 | CT_ITS ---
STUDY: CT ABDOMEN AND PELVIS WITHOUT CONTRAST REASON FOR EXAM: Male, 66 years old. flank pain RADIATION DOSAGE (If Supplied By Facility): CTDIvol = ( 22.37 ) mGy, DLP = ( 1196.18 ) mGycm TECHNIQUE: Transaxial images were obtained from the dome of the diaphragm to the symphysis pubis without oral contrast, and without intravenous contrast. Sagittal and coronal images were reconstructed. Individualized dose optimization techniques were used for this CT. COMPARISON: CT abdomen pelvis 11/25/2020 FINDINGS: LOWER CHEST: Aortic valvular calcifications. LIVER: Liver is diffusely hypoattenuating, consistent with hepatic steatosis. Coarse calcifications in the liver, likely sequela of prior granulomatous disease. GALLBLADDER/BILE DUCTS: Gallbladder is decompressed, limiting evaluation.. PANCREAS: Normal. SPLEEN: Coarse calcifications in the spleen again seen, likely sequela of prior granulomatous disease. ADRENAL GLANDS: Normal. KIDNEYS/URETERS/BLADDER: Mild left hydroureteronephrosis and perinephric stranding due to a 6 mm calculus at the left vesicoureteral junction. Additional nonobstructive right nephrolithiasis. No right hydroureteronephrosis. RETROPERITONEUM/AORTA: Normal. BOWEL/MESENTERY: Normal. APPENDIX: Identified and normal. PERITONEUM: Normal. REPRODUCTIVE ORGANS: Normal. BONES/SOFT TISSUES: Degenerative changes throughout the visualized spine. No acute osseous abnormality. OTHER: None. CT/Abdomen/Pelvis without Cont IMPRESSION: Mild left hydroureteronephrosis due to a 6 mm calculus at the left vesicoureteral junction. Additional nonobstructive right nephrolithiasis. Electronically Signed: Darío Rivers MD at 4:54 EDT ,
--- NOTE | 2022-03-15 05:14 | EDS_ITS ---
HPI History of Present Illness Chief Complaint: Complaint Narrative Narrative: Patient is a 66-year-old male with a history of hypertension and diabetes. He states that today he had reported difficulty urinating and felt some pain in the left lower abdomen. He states he has had this before roughly 1 year ago and it was urinary tract infection. He denies any fevers or chills but states that with the pain in his medical history he was concern for repeat infection and therefore comes in for evaluation [facility] Medical History (Updated 03/15/22 @ 06:[address] Sam Roland, DO) Diabetes Hypertension Home Medications metformin 500 mg tablet 1,000 mg PO BIDCM 12/06/14 [History Last Taken Unknown] losartan 25 mg tablet 25 mg PO DAILY 07/12/17 [History Last Taken 09/21/17 07:30 1] gabapentin 300 mg capsule 300 mg PO TID 09/13/17 [History Last Taken Unknown] dulaglutide 1.5 mg/0.5 mL subcutaneous pen injector (Trulicity) 1.5 mg subcut QWEEK 03/15/22 [History Last Taken Unknown] ketorolac 10 mg tablet 10 mg PO 4X/DAY PRN PRN pain 5 days #20 tabs 03/15/22 [Rx Last Taken Unknown] tamsulosin 0.4 mg capsule (Flomax) 0.4 mg PO DAILY 14 days #14 caps 03/15/22 [Rx Last Taken Unknown] Allergy/AdvReac Type Severity Reaction Status Date / Time No Known Allergies Allergy Verified 11/25/20 07:21 Family History Father Diabetes Cancer Mother CAD (coronary artery disease) Brother Cancer Surgical History H/O hernia repair s/p right carpal tunnel release Social History Smoking Status: Never smoker ROS ROS ED Constitutional Constitutional ED: Denies chills or fever(s) ENT ENT ED: Denies sore throat Cardiovascular Cardiovascular: Denies chest pain Respiratory/Chest Respiratory/Chest: Denies cough or dyspnea Gastrointestinal Gastrointestinal: Reports abdominal pain; Denies diarrhea, nausea or vomiting Genitourinary Genitourinary ED: Reports dysuria and hematuria Musculoskeletal Musculoskeletal: Denies back pain or myalgias Integumentary Denies rash Neurologic Neurologic: Denies headache(s) Hematologic/Lymphatic Hematologic/Lymphatic: Denies easy bleeding or easy bruising EXAM Physical Exam Const Vital Signs: 03/15/22 03:07 03/15/22 05:33 Temperature 97.0 F L Temperature Source Temporal Pulse Rate 115 H 81 Respiratory Rate 22 H 16 Blood Pressure 203/121 H 140/82 H Blood Pressure Mean 148 Pulse Ox 96 97 Oxygen Delivery Method Room Air Positive well nourished, well developed and obese General Appearance ED: well developed Nutritional Appearance: obese Eyes PERRL and EOMs intact bilaterally Neck supple Resp normal respiratory effort and clear to auscultation bilaterally Cardio regular rate and regular rhythm Rate: other Other Details: Radial pulses are plus 2 out of 4 bilaterally are equal and symmetric GI non-distended GI Narrative: Mild pain with palpation in the suprapubic to left lower quadrant region without voluntary guarding or rigidity. No pulsatile mass or fluid wave Auscultation: normoactive bowel sounds Palpation: soft Back/Spine no CVA tenderness Extremity Extremity Narrative: Chronic knee to the bilateral lower legs. Negative Homans' sign bilaterally Neuro oriented x3, CN's II-XII intact bilaterally and no sensory deficits noted Sensorium / Orientation: alert Psych mental status grossly normal Skin no rashes or lesions noted MDM MDM MDM Narrative Medical decision making narrative: Patient presented to the ER hypertensive but otherwise with stable vitals and in no acute distress. He had pain in the suprapubic and left lower quadrant and reported mild dysuria with history of urinary tract infection. He did not have flank pain on exam so initially felt only need for urine sample. Urine sample showed lots of red blood cells without signs of infection. Therefore noncontrast CT was obtained. This showed a 6 mm stone in the left ureter consistent with his report of pain. After IM Toradol he had resolution of pain and blood pressure and heart rate normalized. Therefore at this time with improvement of symptoms and no signs of systemic infection he is otherwise safe for discharge and can follow-up with urology on an outpatient basis Lab Data Attestation: I reviewed the patient's lab results. Labs: Laboratory Results - last 24 hr 03/15/22 03:25 Urine Color Yellow Urine Clarity Clear Urine pH 5.0 Ur Specific [place] 1.025 Urine Protein 30 H Urine Glucose (UA) Normal Urine Ketones Negative Urine Occult Blood 250 H Urine Nitrite Negative Urine Bilirubin Negative Urine Urobilinogen Normal Ur Leukocyte Esterase Negative Urine RBC 25-50 SEEN Urine WBC 0 SEEN Ur Squamous Epith Cells 0 SEEN Urine Bacteria RARE Urine Mucus 0 SEEN Radiography Diagnostic Testing: Clinical Impression(s) from Imaging Studies Abdomen/Pelvis CT 03/15/22 04:20 IMPRESSION: Mild left hydroureteronephrosis due to a 6 mm calculus at the left vesicoureteral junction. Additional nonobstructive right nephrolithiasis. Electronically Signed: Darío Rivers MD at 4:54 EDT , Discharge Plan Triage Chief Complaint: Complaint ED Provider: Sam Roland Dx/Rx/DC Orders Clinical Impression: Kidney stone on left side, Renal colic, Diabetes, Hypertension Instructions: ED Kidney Stone w/ Colic Prescriptions: New ketorolac 10 mg tablet 10 mg PO 4X/DAY PRN PRN (Reason: pain) 5 Days Qty: 20 0RF tamsulosin [Flomax] 0.4 mg capsule 0.4 mg PO DAILY 14 Days Qty: 14 0RF No Action losartan 25 mg tablet 25 mg PO DAILY gabapentin 300 mg capsule 300 mg PO TID metformin 500 MG tablet 1,000 mg PO BIDCM Trulicity 1.5 mg/0.5 mL pen injector 1.5 mg SUBCUT QWEEK Primary Care Provider: Cornelius Monteiro Referrals: Cornelius Monteiro MD [Primary Care Provider] - Activity Restrictions/Additional Instructions: Please follow-up with your urologist to discuss need for possible stent placement based on the kidney stone found on today's exam. If you develop a fever over 100.4 or have intractable pain please return to the ER for repeat evaluation Disposition Disposition: Home, Self Care Discharge Date/Time: 03/15/22 05:34
[2022-03-15 05:33] VITALS: BP 140/82; PULSE 81; RESP 16; O2SAT 97
== END 2022-03-15 05:34 | disposition home or self-care (01) ==
PROVIDERS: Emergency Provider Emergency Medicine; PCP Family Medicine; Visit Provider Emergency Medicine
DX: N13.2 Hydronephrosis with renal and ureteral calculous obstruction (principal); E11.9 Type 2 diabetes mellitus without complications; N23 Unspecified renal colic; I10 Essential (primary) hypertension; Z87.440 Personal history of urinary (tract) infections
CPT/HCPCS: 74176; 81001; 87086; 90471; 96372; 99284

== ENCOUNTER 2022-04-20 16:41 | Outpatient (CLI) | payer BC, SELFPAY ==
[2022-04-20 18:01] LABS: Absolute Lymphocyte Count 2.68 X10^3/uL (0.83-4.51); Absolute Neutrophil Count 5.6 X10^3/uL (2.0-7.7); Basophil# 0.06 X10^3/uL; Basophil% 0.6 % (0-1); Eosinophil# 0.39 X10^3/uL; Eosinophils% 4.1 % (0-5); Hematocrit 44.7 % (40-54); Hemoglobin 14.8 g/dL (13.0-16.5); Lymphocyte # 2.68 X10^3/ul (0.83-4.51); Lymphocyte % 28.3 % (19-41); Mean Corp Hgb Conc 33.1 g/dL (32-36); Mean Corpuscular Hgb 30.4 pg (27.0-32.0); Mean Corpuscular Volume 91.8 fL (80-94); Mean Platelet Vol. 9.5 fl (6.2-12.0); Monocyte# 0.68 X10^3/uL; Monocyte% 7.2 % (0-10); NRBC Flagged by Analyzer 0 % (0-5); Neutrophil # 5.57 X10^3/uL (2.7-7.7); Neutrophil % 58.7 % (47-70); Platelet Count 273 K/mm3 (150-450); RBC Distribution Width CV 13.2 % (11.6-14.6); RBC Distribution Width SD 44.4 fl (35.1-43.9); Red Blood Count 4.87 M/mm3 (4.6-6.2); White Blood Count 9.5 K/mm3 (4.4-11.0)
[2022-04-20 18:04] LABS: Erythrocyte Sedimentation Rate 16 mm/hr (0-20)
[2022-04-20 18:14] LABS: ALB/GLOB Ratio 0.8 RATIO (0.9-2.4); AST(SGOT) 12 U/L (15-37); Alanine Aminotransfer ALT/SGPT 22 U/L (16-61); Albumin, Serum 3.5 g/dL (3.2-5.0); Alkaline Phosphatase 67 U/L (45-117); Amylase 32 U/L (25-115); Anion Gap 7 (5-15); BUN 19 mg/dL (7-18); BUN/Creat Ratio 14.1 RATIO (10-20); Calcium,Total 9.3 mg/dL (8.5-10.1); Chloride 102 mmol/L (98-107); Creatinine, Serum 1.35 mg/dL (0.70-1.30); EST Glomerular Filtration Rate 56 mL/min (>60); Est Glom Filt Rate - Afr Amer 68 mL/min (>60); Globulin 4.3 g/dL (2.2-4.2); Glucose 159 mg/dL (74-106); Lipase 165 U/L (73-393); Potassium 4.1 mmol/L (3.5-5.1); Protein, Total 7.8 g/dL (6.4-8.2); Sodium Level 138 mmol/L (136-145)
== END 2022-04-20 23:59 | disposition home or self-care (01) ==
LOC: MFPLAB 16:42
PROVIDERS: PCP Family Medicine; Referring Provider Family Medicine; Visit Provider Family Medicine
DX: Z00.00 Encounter for general adult medical examination without abnormal findings (principal)
CPT/HCPCS: 36415; 80053; 82150; 83690; 85025; 85652

== ENCOUNTER → 2022-05-04 | Outpatient (CLI) | payer BC, SELFPAY ==
--- NOTE | 2022-05-04 07:43 | US_ITS ---
EXAM: US ABDOMEN LIMITED, RIGHT UPPER QUADRANT CLINICAL INDICATION: pain -- abnormal feces TECHNIQUE: Real-time ultrasound of the right upper quadrant with image documentation. This report was created using [employer] report generation technology. COMPARISON: None. FINDINGS: LIVER: Increased echogenicity of the hepatic parenchyma with mild hepatomegaly measuring up to 19.3 cm. No intrahepatic biliary ductal dilation. GALLBLADDER: Unremarkable. No shadowing gallstone. No gallbladder wall thickening is demonstrated. No pericholecystic fluid. Negative sonographic Wynn''s sign. COMMON BILE DUCT: 4.9 mm. The proximal common bile duct is within normal limits for the patient''s age. PANCREAS: Unremarkable as visualized. No focal abnormality is demonstrated in the pancreas. No pancreatic ductal dilatation. RIGHT KIDNEY: Unremarkable. There is no hydronephrosis. No shadowing calculus. No focal lesion or perinephric collection is demonstrated. US/Abdomen Limited IMPRESSION: 1. No acute findings in the right upper quadrant. 2. Hepatomegaly with fatty infiltration. Electronically Signed: Forrest Romano MD at 4:25 EDT ,
== END | disposition home or self-care (01) ==
PROVIDERS: PCP Family Medicine; Referring Provider Family Medicine; Visit Provider Family Medicine
DX: R19.5 Other fecal abnormalities (principal)
CPT/HCPCS: 76705

== ENCOUNTER → 2022-05-12 | Outpatient (CLI) | payer BC, SELFPAY | END | disposition home or self-care (01) | LOC: LABSPEC 10:40 | PROVIDERS: PCP Family Medicine; Visit Provider Family Medicine | DX: R19.5 Other fecal abnormalities (principal) | CPT/HCPCS: 83630; 87177; 87209; 87493; 87506 ==

== ENCOUNTER → 2022-05-20 | Outpatient (CLI) | payer BC, SELFPAY ==
--- NOTE | 2022-05-20 07:51 | CT_ITS ---
STUDY: CT ABDOMEN AND PELVIS WITHOUT CONTRAST REASON FOR EXAM: Male, 67 years old. Lower abdominal pain. Prior hernia repair. RADIATION DOSAGE (If Supplied By Facility): CTDIvol = ( 22.28 ) mGy, DLP = ( 1146.66 ) mGycm TECHNIQUE: Transaxial images were obtained from the dome of the diaphragm to the symphysis pubis without oral contrast, and without intravenous contrast. Sagittal and coronal images were reconstructed. Individualized dose optimization techniques were used for this CT. COMPARISON: Comparison is made with prior study 03/15/2022. FINDINGS: The visualized lung bases are unremarkable. The visualized portions of the heart are within normal limits. There is decreased attenuation of the liver consistent with steatosis. Mild degree of hepatomegaly. Normal gallbladder and extrahepatic biliary system. There are multiple benign calcified granulomata of the spleen. There is diffuse atrophy of the pancreas. Normal bilateral adrenal glands. There is a 2 mm nonobstructive calculus in the midpole of the right kidney as well as in the lower pole of the right kidney. Mild degree of the left hydronephrosis due to a 2.5 mm calculus in the distal portion of the left ureter. Normal visualized stomach. Normal small intestine. There are scattered colonic diverticula consistent with diverticulosis. The appendix is visualized and appears normal. Normal abdominal aorta. Normal inferior vena cava. Normal retroperitoneum. Normal urinary bladder. There is evidence of prior right inguinal hernia repair. There are diffuse degenerative changes of the visualized lumbar spine. CT/Abdomen/Pelvis without Cont IMPRESSION: Diffuse fatty infiltration of the liver and mild hepatomegaly. 2.5 mm calculus in the distal portion of the left ureter causing mild degree of left hydronephrosis. Nonobstructive right intrarenal calculi. Electronically Signed: Mario Bell MD at 8:26 EST ,
== END | disposition home or self-care (01) ==
LOC: CT 07:50
PROVIDERS: PCP Family Medicine; Visit Provider Family Medicine
DX: R10.9 Unspecified abdominal pain (principal)
CPT/HCPCS: 74176

== ENCOUNTER → 2022-07-21 | Outpatient (CLI) | payer BC, SELFPAY ==
[2022-07-21 10:26] LABS: Hematocrit 43.1 % (40-54); Hemoglobin 13.7 g/dL (13.0-16.5); Mean Corp Hgb Conc 31.8 g/dL (32-36); Mean Corpuscular Hgb 29.7 pg (27.0-32.0); Mean Corpuscular Volume 93.5 fL (80-94); Mean Platelet Vol. 9.9 fl (6.2-12.0); Platelet Count 232 K/mm3 (150-450); RBC Distribution Width CV 13.6 % (11.6-14.6); RBC Distribution Width SD 46.5 fl (35.1-43.9); Red Blood Count 4.61 M/mm3 (4.6-6.2); White Blood Count 8.5 K/mm3 (4.4-11.0)
[2022-07-21 11:11] LABS: AST(SGOT) 15 U/L (15-37); Alanine Aminotransfer ALT/SGPT 24 U/L (16-61); Albumin, Serum 3.7 g/dL (3.2-5.0); Alkaline Phosphatase 58 U/L (45-117); Anion Gap 6 (5-15); BUN 18 mg/dL (7-18); BUN/Creat Ratio 18.8 RATIO (10-20); Chloride 103 mmol/L (98-107); Cholesterol 145 mg/dL (200); Creatinine, Serum 0.96 mg/dL (0.70-1.30); EST Glomerular Filtration Rate 83 mL/min (>60); Est Glom Filt Rate - Afr Amer 101 mL/min (>60); Globulin 3.6 g/dL (2.2-4.2); Glucose 150 mg/dL (74-106); High Density Lipoprotein 33 mg/dL; Potassium 4.2 mmol/L (3.5-5.1); Protein, Total 7.3 g/dL (6.4-8.2); Sodium Level 138 mmol/L (136-145); Triglycerides 408 mg/dL
== END | disposition home or self-care (01) ==
PROVIDERS: PCP Family Medicine; Referring Provider Family Medicine; Visit Provider Family Medicine
DX: Z01.812 Encounter for preprocedural laboratory examination (principal); R10.9 Unspecified abdominal pain; Z11.9 Encounter for screening for infectious and parasitic diseases, unspecified
CPT/HCPCS: 36415; 80053; 80061; 84403; 85027

== ENCOUNTER → 2022-07-22 | Outpatient (CLI) | payer BC, SELFPAY ==
--- NOTE | 2022-07-22 09:02 | EKG12_ITS ---
Test Reason : PREOP Blood Pressure : / mmHG Vent. Rate : 096 BPM Atrial Rate : 096 BPM P-R Int : 188 ms QRS Dur : 144 ms QT Int : 382 ms P-R-T Axes : 052 -13 011 degrees QTc Int : 482 ms Normal sinus rhythm Right bundle branch block Abnormal ECG Confirmed by KELLI MALAVE, ERIC ([id number]), society editor UMAIR PACHECO ([id number]) on 07/26/2022 9:48:50 AM Referred By: Kody Palma Confirmed By:ZEV PEREIRA MD
== END | disposition home or self-care (01) ==
LOC: PSN 08:59
PROVIDERS: PCP Family Medicine; Referring Provider Urology; Visit Provider Urology
DX: Z01.810 Encounter for preprocedural cardiovascular examination (principal); R94.31 Abnormal electrocardiogram [ECG] [EKG]; Z01.812 Encounter for preprocedural laboratory examination
CPT/HCPCS: 93005

== ENCOUNTER → 2022-07-30 | Outpatient (CLI) | payer BC, SELFPAY ==
--- NOTE | 2022-07-30 09:30 | CALC_PTH ---
PATIENT: ALEJANDRO JEFFRIES LOC: [facility] U#:[id number] AGE/SX: 67/M ROOM: RE07/30/[address]: Dr. Kody Palma MD : [id number] BED: DIS: 07/30/2022 SPEC #: [id number] RECD: 07/30/22 15:07 STATUS: LUANA WILHELM #: [id number] VALDEZ: 07/30/22 09:[address]: Kody Palma DEPT: SURGICAL PATHOLOGY RECD BY: Shannan Barnett ENTERED: 08/02/22 08:41 SP TYPE: Calculi OTHR DR: Dr. Perico Monteiro MD Tissues: CALCULI Procedures: Surgery Specimen Level I HEADER OPERATION: Cystolitholapaxy, bilateral ureteroscopy PRE-OP DIAGNOSIS: Calculus of bilateral kidney TISSUE SUBMITTED: Renal calculi GROSS DIAGNOSIS Renal calculi, removal: Fragments of unremarkable calculi (gross diagnosis only). AM:shoaib 08/03/2022 COMMENT If chemical analysis is requested on this specimen, please notify the laboratory. GROSS DESCRIPTION Received without fixative labeled with the patient's name and designated renal calculi. The specimen consists of multiple irregular fragments of yellow calculi measuring in aggregate 0.2 x <0.1 x <0.1 cm. The entire specimen is saved if stone analysis is requested. / AM:shoaib 08/02/2022 CPT: 89175
== END | disposition home or self-care (01) ==
LOC: LABSPEC 16:08
PROVIDERS: PCP Family Medicine; Visit Provider Urology
DX: N20.0 Calculus of kidney (principal)
CPT/HCPCS: 88300

== ENCOUNTER → 2022-09-15 | Outpatient (CLI) | payer BC, SELFPAY ==
[2022-09-15 10:20] LABS: CRP 3.49 mg/L (0.0-3.0)
[2022-09-16 15:35] LABS: Endomysial Antibody IgA Negative (Negative); Immunoglobulin A 243 mg/dL (61-437); t-Transglutaminase IgA <2 U/mL (0-3)
== END | disposition home or self-care (01) ==
LOC: MTLAB 07:52
PROVIDERS: PCP Family Medicine; Referring Provider Internal Medicine Gastroenterology; Visit Provider Internal Medicine Gastroenterology
DX: R19.7 Diarrhea, unspecified (principal)
CPT/HCPCS: 36415; 82274; 82784; 83516; 86140; 86255

== ENCOUNTER → 2023-03-18 | Outpatient (CLI) | payer BC, SELFPAY ==
[2023-03-18 10:16] LABS: Hematocrit 50.4 % (40-54); Hemoglobin 15.2 g/dL (13.0-16.5); Mean Corp Hgb Conc 30.2 g/dL (32-36); Mean Corpuscular Hgb 27.4 pg (27.0-32.0); Mean Corpuscular Volume 90.8 fL (80-94); Mean Platelet Vol. 9.9 fl (6.2-12.0); Platelet Count 217 K/mm3 (150-450); RBC Distribution Width CV 14.5 % (11.6-14.6); RBC Distribution Width SD 48.2 fl (35.1-43.9); Red Blood Count 5.55 M/mm3 (4.6-6.2)
[2023-03-18 10:31] LABS: ALB/GLOB Ratio 0.9 RATIO (0.9-2.4); AST(SGOT) 22 U/L (15-37); Alanine Aminotransfer ALT/SGPT 27 U/L (16-61); Albumin, Serum 3.3 g/dL (3.2-5.0); Alkaline Phosphatase 60 U/L (45-117); Anion Gap 4 (5-15); BUN 16 mg/dL (7-18); BUN/Creat Ratio 13.9 RATIO (10-20); Calcium,Total 8.5 mg/dL (8.5-10.1); Chloride 104 mmol/L (98-107); Cholesterol 95 mg/dL (200); Creatinine, Serum 1.15 mg/dL (0.70-1.30); EST Glomerular Filtration Rate 67 mL/min (>60); Est Glom Filt Rate - Afr Amer 82 mL/min (>60); Globulin 3.7 g/dL (2.2-4.2); Glucose 219 mg/dL (74-106); High Density Lipoprotein 30 mg/dL; Potassium 4.1 mmol/L (3.5-5.1); Sodium Level 139 mmol/L (136-145); Triglycerides 185 mg/dL; Very Low Density Lipoprotein 37 mg/dL (5-40)
[2023-03-18 11:01] LABS: Vitamin B12 485 pg/mL (211-911)
== END | disposition home or self-care (01) ==
LOC: MTLAB 08:26
PROVIDERS: PCP Family Medicine; Referring Provider Family Medicine; Visit Provider Family Medicine
DX: E29.1 Testicular hypofunction (principal); E11.65 Type 2 diabetes mellitus with hyperglycemia
CPT/HCPCS: 36415; 80053; 80061; 82607; 85027

== ENCOUNTER → 2023-08-24 | Outpatient (CLI) | payer BC, SELFPAY ==
[2023-08-24 10:39] LABS: Vitamin B12 456 pg/mL (211-911)
[2023-08-24 10:48] LABS: ALB/GLOB Ratio 0.9 RATIO (0.9-2.4); AST(SGOT) 19 U/L (15-37); Alanine Aminotransfer ALT/SGPT 32 U/L (16-61); Albumin, Serum 3.5 g/dL (3.2-5.0); Alkaline Phosphatase 57 U/L (45-117); Anion Gap 4 (5-15); BUN 22 mg/dL (7-18); Calcium,Total 8.5 mg/dL (8.5-10.1); Chloride 105 mmol/L (98-107); Cholesterol 124 mg/dL (200); Creatinine, Serum 1.05 mg/dL (0.70-1.30); EST Glomerular Filtration Rate 75 mL/min (>60); Est Glom Filt Rate - Afr Amer 91 mL/min (>60); Globulin 3.7 g/dL (2.2-4.2); Glucose 170 mg/dL (74-106); High Density Lipoprotein 36 mg/dL; PSA,Total - Annual Screen 0.71 ng/mL (0.00-4.00); Potassium 4.2 mmol/L (3.5-5.1); Protein, Total 7.2 g/dL (6.4-8.2); Sodium Level 139 mmol/L (136-145); Thyroid Stim Hormone (TSH) 3.14 uIU/mL (0.358-3.74); Triglycerides 283 mg/dL; Very Low Density Lipoprotein 57 mg/dL (5-40)
== END | disposition home or self-care (01) ==
PROVIDERS: PCP Family Medicine; Referring Provider Family Medicine; Visit Provider Family Medicine
DX: E11.40 Type 2 diabetes mellitus with diabetic neuropathy, unspecified (principal); E29.1 Testicular hypofunction; Z12.5 Encounter for screening for malignant neoplasm of prostate
CPT/HCPCS: 36415; 80053; 80061; 82607; 83036; 84153; 84403; 84443; G0103

== ENCOUNTER → 2023-10-19 | Outpatient (CLI) | payer BC, SELFPAY ==
[2023-10-20 09:30] LABS: Bacteria 0 SEEN /hpf (None Seen); Mucous, Urine 0 SEEN /hpf (<or=2+); Squamous Epithelial Cells - UA 0 SEEN /hpf (0-5); White Blood Cells 0 SEEN /hpf (0-5)
[2023-10-20 10:19] LABS: Color, Urine Yellow (Yellow); Glucose, Dipstick 1000 mg/dl (Normal); Ketone-Dipstick Negative (Negative); Leukocyte Esterase-Dipstick Negative /ul (Negative); Nitrite-Dipstick Negative (Negative); Occult Blood-Urine 50 /ul (Negative); Protein-Dipstick Negative (Negative); Specific Gravity, Urine 1.015 (1.002-1.030); Urine Bilirubin Dipstick Negative (Negative); Urine Clarity Clear (Clear); Urine Urobilinogen Normal (Normal)
[2023-10-20 10:33] LABS: Red Blood Cells-Urine 0-5 SEEN /hpf (0-5)
== END | disposition home or self-care (01) ==
LOC: MFPLAB 16:57
PROVIDERS: PCP Family Medicine; Visit Provider Family Medicine
DX: Q64.9 Congenital malformation of urinary system, unspecified (principal)
CPT/HCPCS: 36415; 81001; 84403; 87086; 87088

== ENCOUNTER → 2023-12-05 | Outpatient (CLI) | payer BC, SELFPAY ==
[2023-12-06 09:09] LABS: C-Peptide 5.1 ng/mL (1.1-4.4); Insulin Level 19.8 uIU/mL (2.6-24.9)
== END | disposition home or self-care (01) ==
LOC: LAB.FUTURE 08:07
PROVIDERS: PCP Family Medicine; Referring Provider Family Medicine; Visit Provider Family Medicine
DX: Q64.9 Congenital malformation of urinary system, unspecified (principal); E11.9 Type 2 diabetes mellitus without complications; E29.1 Testicular hypofunction
CPT/HCPCS: 36415; 83525; 84403; 84681

== ENCOUNTER → 2024-02-27 | Outpatient (CLI) | payer BC, SELFPAY ==
--- NOTE | 2024-02-27 16:50 | RAD_ITS ---
STUDY: X-RAY - LEFT SHOULDER REASON FOR EXAM: Male, 68 years old. pain TECHNIQUE: 4 view(s) of the shoulder. COMPARISON: None. FINDINGS: Narrowed glenohumeral articulation. Narrowed acromioclavicular joint with spurring. Normal acromion. Narrowed subacromial space which may be seen with rotator cuff tendon injury. MRI would be useful for further evaluation if indicated Normal humeral head and visualized proximal humerus. The soft tissue structures are unremarkable. Normal visualized pulmonary apex. RAD/Shoulder min 2 Views IMPRESSION: Degenerative changes. Possible rotator cuff tendon pathology. No acute fracture or dislocation. Electronically Signed: Mundo Rivera MD at 22:53 EDT ,
== END | disposition home or self-care (01) ==
LOC: MTRAD 16:50
PROVIDERS: PCP Family Medicine; Referring Provider Family Medicine; Visit Provider Family Medicine
DX: M75.22 Bicipital tendinitis, left shoulder (principal)
CPT/HCPCS: 73030

== ENCOUNTER → 2024-06-19 | Outpatient (CLI) | payer BC, SELFPAY ==
[2024-06-19 09:47] LABS: Hematocrit 51.9 % (40-54); Hemoglobin 16.9 g/dL (13.0-16.5); Mean Corp Hgb Conc 32.6 g/dL (32-36); Mean Corpuscular Hgb 29.3 pg (27.0-32.0); Mean Corpuscular Volume 89.9 fL (80-94); Mean Platelet Vol. 9.3 fl (6.2-12.0); Platelet Count 165 K/mm3 (150-450); RBC Distribution Width CV 13.7 % (11.6-14.6); RBC Distribution Width SD 44.9 fl (35.1-43.9); Red Blood Count 5.77 M/mm3 (4.6-6.2)
[2024-06-19 13:41] LABS: AST(SGOT) 18 U/L (15-37); Alanine Aminotransfer ALT/SGPT 27 U/L (16-61); Albumin, Serum 3.6 g/dL (3.2-5.0); Alkaline Phosphatase 50 U/L (45-117); Anion Gap 5 (5-15); BUN 22 mg/dL (7-18); BUN/Creat Ratio 24.4 RATIO (10-20); Calcium,Total 8.7 mg/dL (8.5-10.1); Chloride 107 mmol/L (98-107); Cholesterol 99 mg/dL (200); EST Glomerular Filtration Rate 89 mL/min (>60); Est Glom Filt Rate - Afr Amer 108 mL/min (>60); Globulin 3.6 g/dL (2.2-4.2); Glucose 130 mg/dL (74-106); High Density Lipoprotein 32 mg/dL; Protein, Total 7.2 g/dL (6.4-8.2); Sodium Level 140 mmol/L (136-145); Triglycerides 169 mg/dL; Very Low Density Lipoprotein 34 mg/dL (5-40)
== END | disposition home or self-care (01) ==
LOC: MFPLAB 09:13
PROVIDERS: PCP Family Medicine; Referring Provider Family Medicine; Visit Provider Family Medicine
DX: E29.1 Testicular hypofunction (principal); E11.40 Type 2 diabetes mellitus with diabetic neuropathy, unspecified; Z12.5 Encounter for screening for malignant neoplasm of prostate
CPT/HCPCS: 36415; 80053; 80061; 84403; 84443; 85027

== ENCOUNTER → 2024-11-28 | Outpatient (CLI) | payer MEDICARE, SELFPAY ==
[2024-11-28 20:15] LABS: Microalbumin,Random Urine < 12.0 mg/L (NO RANGE EST.); Microalbumin:Creatinine Ratio UNABLE TO CALCULATE mg/g CRE
== END | disposition home or self-care (01) ==
PROVIDERS: PCP Family Medicine; Referring Provider Family Medicine; Visit Provider Family Medicine
DX: E11.40 Type 2 diabetes mellitus with diabetic neuropathy, unspecified (principal)
CPT/HCPCS: 82043; 82570

== ENCOUNTER 2024-11-30 10:09 | Outpatient (CLI) | payer MEDICARE, SELFPAY ==
[2024-11-30 12:58] LABS: Hematocrit 48.4 % (40-54); Mean Corp Hgb Conc 33.1 g/dL (32-36); Mean Corpuscular Hgb 30.9 pg (27.0-32.0); Mean Corpuscular Volume 93.6 fL (80-94); Mean Platelet Vol. 9.8 fl (6.2-12.0); Platelet Count 181 K/mm3 (150-450); RBC Distribution Width CV 13.4 % (11.6-14.6); RBC Distribution Width SD 45.9 fl (35.1-43.9); Red Blood Count 5.17 M/mm3 (4.6-6.2); White Blood Count 6.5 K/mm3 (4.4-11.0)
[2024-11-30 13:28] LABS: ALB/GLOB Ratio 1.5 RATIO (0.9-2.4); AST(SGOT) 28 U/L (<=37); Alanine Aminotransfer ALT/SGPT 24 U/L (<=46); Albumin, Serum 4.1 g/dL (3.4-4.8); Alkaline Phosphatase 54 U/L (40-129); Anion Gap 9 (5-15); BUN 19 mg/dL (4-19); BUN/Creat Ratio 21.6 RATIO (10-20); Calcium,Total 8.8 mg/dL (7.6-11.0); Chloride 104 mmol/L (98-108); Cholesterol 103 mg/dL (<=200); Creatinine, Serum 0.86 mg/dL (0.70-1.20); EST Glomerular Filtration Rate 94 (>60); Globulin 2.7 g/dL (2.2-4.2); Glucose 116 mg/dL (70-99); High Density Lipoprotein 33 mg/dL; Low Density Lipoprotein Calc. 43 mg/dL; PSA,Total - Annual Screen 0.83 ng/mL (0.02-4.00); Potassium 4.4 mmol/L (3.3-5.1); Protein, Total 6.8 g/dL (5.9-8.4); Sodium Level 138 mmol/L (133-145); Total Bilirubin 0.57 mg/dL (0.00-1.30); Triglycerides 137 mg/dL; Very Low Density Lipoprotein 27 mg/dL (5-40); cholesterol:hdl ratio screen 3.15
== END 2024-11-30 23:59 | disposition home or self-care (01) ==
LOC: MFPLAB 10:09
PROVIDERS: PCP Family Medicine; Visit Provider Family Medicine
DX: E29.1 Testicular hypofunction (principal)
CPT/HCPCS: 36415; 80053; 80061; 84153; 84403; 85027; G0103

== ENCOUNTER → 2024-12-05 | Outpatient (CLI) | payer MEDICARE, OTHER, SELFPAY ==
--- OUTSIDE RECORDS SUMMARY | 2024-12-05 07:29 | XMS RPT_ITS | CCD ---
Author Organization [facility] Care Team Providers Care Trade Marker Name Role Phone Dr. Cornelius Monteiro Primary Care Provider [phone] Dr. Tayler Pearl Attending Provider [phone] Dr. Kody Palma Referring Provider [phone] Thania MALAVE, Dr. River Primary Care Provider Thania MALAVE, Dr. River Attending Provider Thania MALAVE, Dr. River Referring Provider Perico Monteiro Referring Unavailable Perico Monteiro Attending Unavailable Perico Monteiro Primary Care Unavailable Perico Monteiro Referring Unavailable Perico Monteiro Attending Unavailable Perico Monteiro Primary Care Unavailable Perico Monteiro Attending Unavailable Perico Monteiro Primary Care Unavailable Perico Monteiro Referring Unavailable Perico Monteiro Attending Unavailable Perico Monteiro Primary Care Unavailable Perico Monteiro Referring Unavailable Perico Monteiro Attending Unavailable Perico Monteiro Primary Care Unavailable Medications Current Medications Medication Drug Class(es) Dates Sig (Normalized) Sig (Original) acetaminophen 325 mg / HYDROcodone bitartrate 5 mg oral tablet (15 sources) Opioid Agonist Start: 11-25-2020 take 1 tablet by mouth every six hours as needed Hydrocodone-Aceta minophen Active 1 TABLET PO EVERY 6 HOURS NEEDED 12 November 25, 2020 Start: 12-06-2014 End: 07-12-2017 Hydrocodone-Acetaminophen 1 TABLET tablet Discontinued 1 - 2 {tbl} PO EVERY 6 HOURS NEEDED as needed for Pain December 06, 2014 12:00am July 12, 2017 3:42pm causes drowsiness Start: 12-06-2014 End: 07-12-2017 take 1 tablet by mouth every six hours as needed Hydrocodone-Acetaminophen Discontinued 1 - 2 TABLET PO EVERY 6 HOURS NEEDED December 06, 2014 12:00am July 12, 2017 3:42pm causes drowsiness cephalexin 500 mg oral capsule (2 sources) Cephalosporin Antibacterial Start: 10-26-2019 take 500 mg by mouth every six hours Cephalexin Active 500 MG PO EVERY 6 HOURS 40 October 26, 2019 12:00am 0.5 ml dulaglutide 3 mg/ml auto-injector (11 sources) GLP-1 Receptor Agonist Start: 03-15-2022 Dulaglutide (Trulicity) 1.5 mg/0.5 mL pen injector Active 1.5 mg SC EVERY WEEK March 15, 2022 12:00am gabapentin 300 mg oral capsule (13 sources) Anti-epileptic Agent Start: 09-13-2017 take 1 capsule by mouth three times daily Gabapentin 300 mg capsule Active 300 mg PO THREE TIMES A DAY September 13, 2017 12:00am Ticrwkom-Xpqu-Wsn8- C-David-Bosw (Osteo Bi-Flex Caplet) 1 EACH tablet (2 sources) Start: 09-19-2017 take 1 tablet by mouth twice daily Meijhkef-Gibt-Yg u3-P-Dhgt-Bosw (Osteo Bi-Flex Caplet) 1 EACH tablet Active 1 EACH PO TWICE A DAY September 19, 2017 12:00am ibuprofen 400 mg oral tablet (2 sources) Nonsteroidal Anti-inflammatory Drug Start: 09-19-2017 take 400 mg by mouth once daily Ibuprofen Active 400 MG PO DAILY September 19, 2017 12:00am ketorolac tromethamine 10 mg oral tablet (11 sources) Nonsteroidal Anti-inflammatory Drug, Cyclooxygenase Inhibitor Start: 03-15-2022 take 1 tablet by mouth four times daily as needed for pain Ketorolac 10 mg tablet Active 10 mg PO 4 TIMES DAILY NEEDED as needed for pain 20 11March 15, 2022 5:15am 3 ml liraglutide 6 mg/ml pen injector (2 sources) GLP-1 Receptor Agonist Start: 09-19-2017 Liraglutide (Victoza 2-Tutu) 0.6 MG/0.1 ML Ml Active 18 MG SQ DAILY September 19, 2017 12:00am losartan potassium 25 mg oral tablet (13 sources) Angiotensin 2 Receptor Fredrick Start: 07-12-2017 take 1 tablet by mouth once daily Losartan 25 mg tablet Active 25 mg PO DAILY July 12, 2017 1:00am metFORMIN hydrochloride 500 mg oral tablet (13 sources) Biguanide Start: 12-06-2014 take 2 tablets by mouth twice daily at mealtime Metformin 500 MG tablet Active 1000 mg PO TWICE DAILY WITH MEALS December 06, 2014 12:00am Start: 12-06-2014 take 1000 mg by mout h twice daily at mealtime Metformin Active 1000 MG PO TWICE DAILY WITH MEALS December 06, 2014 12:00am Start: 12-06-2014 take 500 mg by mouth twice daily at mealtime Metformin Active 500 MG PO TWICE DAILY WITH MEALS December 06, 2014 12:00am Multivitamin (Multiple Vitamins) 1 EACH tablet (2 sources) Start: 09-19-2017 take 1 tablet by mouth once daily Multivitamin (Multiple Vitamins) 1 EACH tablet Active 1 EACH PO DAILY September 19, 2017 12:00am sulfamethoxazole 800 mg / trimethoprim 160 mg oral tablet (4 sources) Dihydrofolate Reductase Inhibitor Antibacterial, Sulfonamide Antimicrobial Start: 11-25-2020 take 1 tablet by mouth twice daily Sulfamethoxazole- Trimethoprim (Bactrim Ds) 800-160 mg tablet Active 1 TABLET PO TWICE A DAY November 25, 2020 12:00am Start: 10-26-2019 take 1 tablet by leonor th twice daily Sulfamethoxazole-Trimethoprim Active 1 T ABLET PO TWICE A DAY October 26, 2019 12:00am tamsulosin hydrochloride 0.4 mg oral capsule (13 sources) alpha-Adrenergic Fredrick Start: 03-15-2022 take 1 capsule by mouth once daily Tamsulosin (Flomax) 0.4 mg capsule Active 0.4 mg PO DAILY March 15, 2022 12:00am Start: 11-25-2020 take 1 capsule by mo uth once daily Tamsulosin (Flomax) 0.4 mg capsule Active 0.4 MG PO DAILY November 25, 2020 12:00am 5000 mg testosterone 0.01 mg/mg topical gel (2 sources) Androgen Start: 12-06-2014 Testosterone A ctive 5 GM TD DAILY December 06, 2014 12:00am Problems Active Problems Problem Classification Problem Date Documented Da te Episodic/Chronic Calculus of urinary tract (20 sources) Urolithiasis ; Translations: [Urinary calculus, unspecified] 03-23-2022 Episodic Diabetes mellitus with complications (1 source) Type 2 diabetes mellitus with diabetic neuropathy, unspecified; Translations: [Type 2 diabetes mellitus with diabetic neuropathy, unspecified] Onset: 12-03-2024 Chronic Diabetes mellitus without complication (13 sources) Diabetes mellitus; Translations: [Type 2 diabetes mellitus without complications] 03-15-2022 Chronic Essential hypertension (13 sources) Hypertensive disorder; Translations: [Essential (primary) hypertension] 03-15-2022 Chronic Other connective tissue disease (2 sources) Bicipital tendinitis, left shoulder; Translations: [Bicipital tendinitis, left shoulder] Onset: 03-09-2024 Episodic Other endocrine disorders (1 source) Testicular hypofunction; Translations: [Testicular hypofunction] Onset: 07-21-2024 Chronic Skin and subcutaneous tissue infections (13 sources) Cellulitis; Translations: [Cellulitis, unspecified] 10-27-2019 Episodic Urinary tract infections (13 sources) Acute urinary tract infection; Translations: [Urinary tract infection, site not specified] 11-25-2020 Episodic Past or Other Problems Problem Classification Problem Date Documented Da te Episodic/Chronic Unclassified (12 sources) s/p right carpal tunnel release 01-27-2022 Comment on above: 09/21/17 Results Test Name Value Interpretation Reference Range Facility Anion gap in Serum or Plasma Ordered By: Perico Monteiro on 11-30-2024 Anion gap [Moles/Vol] 9 mmol/L 11-15 [facility] BUN/creatinine ratioOrdered By: Perico Monteiro on 11-30-2024 Urea nitrogen/Creatinine [Mass ratio] 21.6 mg/mg High - [facility] Bilirubin, totalOrdered By: Perico Monteiro on 11-30-2024 Bilirubin [Mass/Vol] 0.57 mg/dL 0.00-1.30 [facility] CBC-Complete Blood Cnt No Di ffon 11-30-2024 Erythrocyte distribution width (RBC) [Ratio] 13.4 % Normal 11.6-14.6 [facility] Comment on above: Order Comment: PER P T-NOT DOING URINE TEST Order Date: 11/28/24 Order Info: [id number] - CBC Performed By: #### L 501.9910, L500.4100, L500.4050, L100.0500 #### [facility] [address] [place], [address] Hematocrit (Bld) [Volume fraction] 48.4 % Normal 40-54 [facility] Comment on above: Order Comment: PER P T-NOT DOING URINE TEST Order Date: 11/28/24 Order Info: [id number] - CBC Performed By: #### L 501.9910, L500.4100, L500.4050, L100.0500 #### [facility] [address] [place], [address] Hemoglobin (Bld) [Mass/Vol] 16.0 g/dL Normal 13.0-16.5 [facility] Comment on above: Order Comment: PER P T-NOT DOING URINE TEST Order Date: 11/28/24 Order Info: [id number] - CBC Performed By: #### L [id number], L500.4100, L500.4050, L100.0500 #### [facility] [address] [place], [address] MCH (RBC) [Entitic mass] 30.9 pg Normal 27.0-32.0 [facility] Comment on above: Order Comment: PER P T-NOT DOING URINE TEST Order Date: 11/28/24 Order Info: [id number] - CBC Performed By: #### L [id number], L500.4100, L500.4050, L100.0500 #### [facility] [address] [place], [address] MCHC (RBC) [Mass/Vol] 33.1 g/dL Normal 32-36 [facility] Comment on above: Order Comment: PER P T-NOT DOING URINE TEST Order Date: 11/28/24 Order Info: [id number] - CBC Performed By: #### L [id number], L500.4100, L500.4050, L100.0500 #### [facility] [address] [place], [address] MCV (RBC) [Entitic vol] 93.6 fL Normal 80-94 [facility] Comment on above: Order Comment: PER P T-NOT DOING URINE TEST Order Date: 11/28/24 Order Info: [id number] - CBC Performed By: #### L 501.9910, L500.4100, L500.4050, L100.0500 #### [facility] [address] [place], [address] Platelet mean volume (Bld) [Entitic vol] 9.8 fL Normal 6.2-12.0 [facility] Comment on above: Order Comment: PER P T-NOT DOING URINE TEST Order Date: 11/28/24 Order Info: [id number] - CBC Performed By: #### L 501.9910, L500.4100, L500.4050, L100.0500 #### [facility] [address] [place], [address] Platelets (Bld) [#/Vol] 181 10*3/uL Normal 150-450 [facility] Comment on above: Order Comment: PER P T-NOT DOING URINE TEST Order Date: 11/28/24 Order Info: [id number] - CBC Performed By: #### L 501.9910, L500.4100, L500.4050, L100.0500 #### [facility] [address] [place], [address] RBC (Bld) [#/Vol] 5.17 10*6/uL Normal 4.6-6.2 [facility] Comment on above: Order Comment: PER P T-NOT DOING URINE TEST Order Date: 11/28/24 Order Info: [id number] - CBC Performed By: #### L 501.9910, L500.4100, L500.4050, L100.0500 #### [facility] [address] [place], [address] RDW SD 45.9 fl High 35.1-43.9 [facility] Comment on above: Order Comment: PER P T-NOT DOING URINE TEST Order Date: 11/28/24 Order Info: [id number] - CBC Performed By: #### L 501.9910, L500.4100, L500.4050, L100.0500 #### [facility] [address] [place], [address] WBC (Bld) [#/Vol] 6.5 10*3/uL Normal 4.4-11.0 [facility] Comment on above: Order Comment: PER P T-NOT DOING URINE TEST Order Date: 11/28/24 Order Info: [id number] - CBC Performed By: #### L 501.9910, L500.4100, L500.4050, L100.0500 #### [facility] [address] [place], [place], [id number] Calculated very low density lipoprotein (VLDL) cholesterol measurementOrdered By: Perico Monteiro on 11-30-2024 Calculated very low density lipoprotein (VLDL) cholesterol measurement 27 mg/dL 5-40 [facility] Carbon dioxide, total [Moles /volume] in Central venous bloodOrdered By: Perico Monteiro on 11-30-2024 CO2 [Moles/Vol] 25.0 mmol/L 21.0-32.0 [facility] Chloride assayOrdered By: Kvng Monteiro on 11-30-2024 Chloride [Moles/Vol] 104 mmol/L 98-108 [facility] Comprehensive Metabolic Prof ilon 11-30-2024 Albumin [Mass/Vol] 4.1 g/dL Normal 3.4-4.8 [facility] Comment on above: Order Comment: PER P T-NOT DOING URINE TEST Order Date: 11/28/24 Order Info: [id number] - CMP Order Info: [id number] - LIPID Order Info: [id number] - PSA Performed By: #### L 501.9910, L500.4100, L500.4050, L100.0500 #### [facility] [address] [place], [address] Albumin/Globulin [Mass ratio] 1.5 {ratio} Normal 0.9-2.4 [facility] Comment on above: Order Comment: PER P T-NOT DOING URINE TEST Order Date: 11/28/24 Order Info: [id number] - CMP Order Info: - LIPID Order Info: [id number] - PSA Performed By: #### L 501.9910, L500.4100, L500.4050, L100.0500 #### [facility] [address] [place], [place], [id number] ALK PHOS 54 U/L Normal 40-129 [facility] Comment on above: Order Comment: PER P T-NOT DOING URINE TEST Order Date: 11/28/24 Order Info: [id number] - CMP Order Info: - LIPID Order Info: [id number] - PSA Performed By: #### L 501.9910, L500.4100, L500.4050, L100.0500 #### [facility] [address] [place], [place], [id number] ALT [Catalytic activity/Vol] 24 U/L Normal <=46 [facility] Comment on above: Order Comment: PER P T-NOT DOING URINE TEST Order Date: 11/28/24 Order Info: [id number] - CMP Order Info: - LIPID Order Info: [id number] - PSA Performed By: #### L 501.9910, L500.4100, L500.4050, L100.0500 #### [facility] [address] [place], [place], [id number] AST [Catalytic activity/Vol] 28 U/L Normal <=37 [facility] Comment on above: Order Comment: PER P T-NOT DOING URINE TEST Order Date: 11/28/24 Order Info: [id number] - CMP Order Info: - LIPID Order Info: [id number] - PSA Performed By: #### L 501.9910, L500.4100, L500.4050, L100.0500 #### [facility] [address] [place], [address] Bilirubin [Mass/Vol] 0.57 mg/dL Normal 0.00-1.30 [facility] Comment on above: Order Comment: PER P T-NOT DOING URINE TEST Order Date: 11/28/24 Order Info: [id number] - CMP Order Info: - LIPID Order Info: [id number] - PSA Performed By: #### L 501.9910, L500.4100, L500.4050, L100.0500 #### [facility] [address] [place], [address] BUN/CRE 21.6 RATIO High 10-20 [facility] Comment on above: Order Comment: PER P T-NOT DOING URINE TEST Order Date: 11/28/24 Order Info: [id number] - CMP Order Info: - LIPID Order Info: [id number] - PSA Performed By: #### L 501.9910, L500.4100, L500.4050, L100.0500 #### [facility] [address] [place], [address] Calcium [Mass/Vol] 8.8 mg/dL Normal 7.6-11.0 [facility] Comment on above: Order Comment: PER P T-NOT DOING URINE TEST Order Date: 11/28/24 Order Info: [id number] - CMP Order Info: - LIPID Order Info: [id number] - PSA Performed By: #### L 501.9910, L500.4100, L500.4050, L100.0500 #### [facility] [address] [place], [address] Chloride [Moles/Vol] 104 mmol/L Normal 98-108 [facility] Comment on above: Order Comment: PER P T-NOT DOING URINE TEST Order Date: 11/28/24 Order Info: [id number] - CMP Order Info: - LIPID Order Info: [id number] - PSA Performed By: #### L 501.9910, L500.4100, L500.4050, L100.0500 #### [facility] [address] [place], [address] CO2 [Moles/Vol] 25.0 mmol/L Normal 21.0-32.0 [facility] Comment on above: Order Comment: PER P T-NOT DOING URINE TEST Order Date: 11/28/24 Order Info: [id number] - CMP Order Info: [id number] - LIPID Order Info: [id number] - PSA Performed By: #### L 501.9910, L500.4100, L500.4050, L100.0500 #### [facility] [address] [place], [place], [address] Creatinine [Mass/Vol] 0.86 mg/dL Normal 0.70-1.20 [facility] Comment on above: Order Comment: PER P T-NOT DOING URINE TEST Order Date: 11/28/24 Order Info: 07 - CMP Order Info: [id number] - LIPID Order Info: [id number] - PSA Performed By: #### L 501.9910, L500.4100, L500.4050, L100.0500 #### [facility] [address] [place], [address] GAP 9 Normal 5-15 [facility] Comment on above: Order Comment: PER P T-NOT DOING URINE TEST Order Date: 11/28/24 Order Info: [id number] - CMP Order Info: [id number] - LIPID Order Info: [id number] - PSA Performed By: #### L 501.9910, L500.4100, L500.4050, L100.0500 #### [facility] [address] [place], [address] GFR/1.73 sq M.predicted among non-blacks MDRD (S/P/Bld) [Vol rate/Area] 94 mL/min/{1.73_m2} Normal >60 [facility] Comment on above: Order Comment: PER P T-NOT DOING URINE TEST Order Date: 11/28/24 Order Info: [id number] - CMP Order Info: - LIPID Order Info: [id number] - PSA Result Comment: mL/m in/1.73m2 CKD-EPI Creatinine Equation (2020) Performed By: #### L 501.9910, L500.4100, L500.4050, L100.0500 #### [facility] [address] [place], [address] Globulin (S) [Mass/Vol] 2.7 g/dL Normal 2.2-4.2 [facility] Comment on above: Order Comment: PER P T-NOT DOING URINE TEST Order Date: 11/28/24 Order Info: [id number] - CMP Order Info: - LIPID Order Info: [id number] - PSA Performed By: #### L 501.9910, L500.4100, L500.4050, L100.0500 #### [facility] [address] [place], [address] Glucose [Mass/Vol] 116 mg/dL High 70-99 [facility] Comment on above: Order Comment: PER P T-NOT DOING URINE TEST Order Date: 11/28/24 Order Info: [id number] - CMP Order Info: - LIPID Order Info: [id number] - PSA Performed By: #### L 501.9910, L500.4100, L500.4050, L100.0500 #### [facility] [address] [place], [address] Potassium [Moles/Vol] 4.4 mmol/L Normal 3.3-5.1 [facility] Comment on above: Order Comment: PER P T-NOT DOING URINE TEST Order Date: 11/28/24 Order Info: [id number] - CMP Order Info: - LIPID Order Info: [id number] - PSA Performed By: #### L 501.9910, L500.4100, L500.4050, L100.0500 #### [facility] [address] [place], [address] Sodium [Moles/Vol] 138 mmol/L Normal 133-145 [facility] Comment on above: Order Comment: PER P T-NOT DOING URINE TEST Order Date: 11/28/24 Order Info: [id number] - CMP Order Info: [id number] - LIPID Order Info: [id number] - PSA Performed By: #### L 501.9910, L500.4100, L500.4050, L100.0500 #### [facility] [address] [place], [place], [address] T PROT 6.8 g/dL Normal 5.9-8.4 [facility] Comment on above: Order Comment: PER P T-NOT DOING URINE TEST Order Date: 11/28/24 Order Info: [id number] - CMP Order Info: [id number] - LIPID Order Info: [id number] - PSA Performed By: #### L 501.9910, L500.4100, L500.4050, L100.0500 #### [facility] [address] [place], [place], [address] Urea nitrogen [Mass/Vol] 19 mg/dL Normal 4-19 [facility] Comment on above: Order Comment: PER P T-NOT DOING URINE TEST Order Date: 11/28/24 Order Info: [id number] - CMP Order Info: [id number] - LIPID Order Info: [id number] - PSA Performed By: #### L 501.9910, L500.4100, L500.4050, L100.0500 #### [facility] [address] [place], [place], [address] Erythrocyte distribution wid th ratioOrdered By: Perico Monteiro on 11-30-2024 Erythrocyte distribution width (RBC) [Ratio] 13.4 % 11.6-14.6 [facility] Erythrocyte distribution wid th standard deviationOrdered By: Perico Monteiro on 11-30-2024 Erythrocyte distribution width (RBC) [Ratio] 45.9 fl High 35.1-43.9 [facility] Glomerular filtration rate ( GFR) estimation/1.73 sq m using serum, plasma, or whole bOrdered By: Perico Monteiro on 11-30-2024 GFR/1.73 sq M.predicted among non-blacks MDRD (S/P/Bld) [Vol rate/Area] 94 mL/min/{1.73_m2} >60 [facility] Comment on above: mL/min/1.73m2 CKD-EP I Creatinine Equation (2020) Hematocrit Auto (Bld) [Volum e fraction]Ordered By: Perico Monteiro on 11-30-2024 Hematocrit (Bld) [Volume fraction] 48.4 % 40-54 [facility] Hemoglobin measurementOrdere d By: Perico Monteiro on 11-30-2024 Hemoglobin (Bld) [Mass/Vol] 16.0 g/dL 13.0-16.5 [facility] L509.3001on 11-30-2024 Testosterone [Mass/Vol] 207.00 ng/dL Low 300-720 [facility] Comment on above: Order Comment: PER P T-NOT DOING URINE TEST Order Date: 11/28/24 Order Info: [id number] - CMP Order Info: [id number] - LIPID Order Info: [id number] - PSA Performed By: #### L 509.3001 #### [facility] [address] [place] [address], [address] LDL calc ser/plasOrdered By: Perico Monteiro on 11-30-2024 Cholesterol in LDL [Mass/Vol] 43 mg/dL [facility] Comment on above: Tbnzxmjmze=518-338 m g/dL & Higher Wpsd=256 mg/dL or greater Laboratory - Chemistry and C hemistry - challengeOrdered By: Perico Monteiro on 11-30-2024 AST [Catalytic activity/Vol] 28 U/L <38 [facility] Testosterone [Mass/Vol] 207.00 ng/dL Low 300-720 [facility] Lipid Profileon 11-30-2024 CHOL:HDL 3.15 Normal [facility] Comment on above: Order Comment: PER P T-NOT DOING URINE TEST Order Date: 11/28/24 Order Info: 07 - CMP Order Info: - LIPID Order Info: [id number] - PSA Performed By: #### L 501.9910, L500.4100, L500.4050, L100.0500 #### [facility] [address] [place], [address] Cholesterol [Mass/Vol] 103 mg/dL Normal <=200 [facility] Comment on above: Order Comment: PER P T-NOT DOING URINE TEST Order Date: 11/28/24 Order Info: [id number] - CMP Order Info: - LIPID Order Info: [id number] - PSA Result Comment: Chol esterol level, Desirable <200 mg/dL Borderline high cholesterol 200-239 mg/dL High cholesterol >=240 mg/dL Recommendations of the NCEP Adult Treatment Panel for the following risk-cutoff thresholds for the [place] population. Performed By: #### L 501.9910, L500.4100, L500.4050, L100.0500 #### [facility] [address] [place], [address] Cholesterol in HDL [Mass/Vol] 33 mg/dL Low [facility] Comment on above: Order Comment: PER P T-NOT DOING URINE TEST Order Date: 11/28/24 Order Info: 07 - CMP Order Info: - LIPID Order Info: [id number] - PSA Result Comment: Laurie onal Cholesterol Education Program (NCEP) guidelines: <40 mg/dL: Low HDL-cholesterol (major risk factor for CHD) >= 60 mg/dL: High HDL-cholesterol (negative risk factor for CHD) HDL-cholesterol is affected by a number of factors, e.g. smoking, exercise, hormones, sex and age. Performed By: #### L 501.9910, L500.4100, L500.4050, L100.0500 #### [facility] [address] [place], [address] Cholesterol in LDL [Mass/Vol] 43 mg/dL Normal [facility] Comment on above: Order Comment: PER P T-NOT DOING URINE TEST Order Date: 11/28/24 Order Info: [id number] - CMP Order Info: - LIPID Order Info: [id number] - PSA Result Comment: Bord aieofa=998-250 mg/dL Higher Tsxd=961 mg/dL or greater Performed By: #### L 501.9910, L500.4100, L500.4050, L100.0500 #### [facility] [address] [place], [address] Cholesterol in VLDL [Mass/Vol] 27 mg/dL Normal 5-40 [facility] Comment on above: Order Comment: PER P T-NOT DOING URINE TEST Order Date: 11/28/24 Order Info: [id number] - CMP Order Info: - LIPID Order Info: [id number] - PSA Performed By: #### L 501.9910, L500.4100, L500.4050, L100.0500 #### [facility] [address] [place], [address] Triglyceride [Mass/Vol] 137 mg/dL Normal [facility] Comment on above: Order Comment: PER P T-NOT DOING URINE TEST Order Date: 11/28/24 Order Info: 07 - CMP Order Info: - LIPID Order Info: [id number] - PSA Result Comment: The drugs N-Acetylcysteine and Metamizole may falsely depress this assay. Normal range: <150 mg/dL Borderline High: 150-199 mg/dL High: 200-499 mg/dL Very High: >500 mg/dL Performed By: #### L 501.9910, L500.4100, L500.4050, L100.0500 #### [facility] [address] [place], [address] MCV (mean corpuscular volume ) determinationOrdered By: Perico Monterio on 11-30-2024 MCV (RBC) [Entitic vol] 93.6 fL 80-94 [facility] Mean corpuscular hemoglobin (MCH) determinationOrdered By: Perico Monteiro on 11-30-2024 MCH (RBC) [Entitic mass] 30.9 pg 27.0-32.0 [facility] Mean corpuscular hemoglobin concentration (MCHC) determinationOrdered By: Perico Monteiro on 11-30-2024 MCHC (RBC) [Mass/Vol] 33.1 g/dL 32-36 [facility] Mean platelet volume determi nationOrdered By: Perico Monteiro on 11-30-2024 Platelet mean volume (Bld) [Entitic vol] 9.8 fL 6.2-12.0 [facility] PSA,Total - Annual Screenon 11-30-2024 PSA,TOT SCREEN 0.83 ng/mL Normal 0.02-4.00 [facility] Comment on above: Order Comment: PER P T-NOT DOING URINE TEST Order Date: 11/28/24 Order Info: [id number] - CMP Order Info: [id number] - LIPID Order Info: [id number] - PSA Result Comment: This test was performed using the [employer] tPSA method. Measured values of a patient??sample can vary depending on the testing procedure used. PSA values determined on patient samples by different testing procedures cannot be used interchangeably. If there is a change in PSA assays while monitoring therapy, sequential testing should be performed to confirm baseline values. Performed By: #### L 501.9910, L500.4100, L500.4050, L100.0500 #### [facility] [place], [address] Platelet countOrdered By: Kvng Monteiro on 11-30-2024 Platelets (Bld) [#/Vol] 181 10*3/uL 150-450 [facility] Potassium measurement (mass/ volume)Ordered By: Perico Monteiro on 11-30-2024 Potassium (Unsp spec) [Mass/Vol] 4.4 mmol/L 3.3-5.1 [facility] RBC Auto (Bld) [#/Vol]Ordere d By: Perico Monteiro on 11-30-2024 RBC (Bld) [#/Vol] 5.17 10*6/uL 4.6-6.2 [facility] Screening total cholesterol/ high density lipoprotein (HDL) cholesterol ratioOrdered By: Perico Monteiro on 11-30-2024 Cholesterol.total/Choles terol in HDL [Mass ratio] 3.15 {ratio} [facility] Serum creatinine measurement (mass/volume)Ordered By: Perico Monteiro on 11-30-2024 Creatinine [Mass/Vol] 0.86 mg/dL 0.70-1.20 [facility] Serum globulin measurementOr dered By: Perico Monteiro on 11-30-2024 Globulin (S) [Mass/Vol] 2.7 g/dL 2.2-4.2 [facility] Serum glucose measurement (m ass/volume)Ordered By: Perico Monteiro on 11-30-2024 Glucose [Mass/Vol] 116 mg/dL High 70-99 [facility] Serum or plasma alanine bethea otransferase (ALT) measurementOrdered By: Perico Monteiro on 11-30-2024 ALT [Catalytic activity/Vol] 24 U/L <47 [facility] Serum or plasma albumin gee urement (mass/volume)Ordered By: Perico Monteiro on 11-30-2024 Albumin [Mass/Vol] 4.1 g/dL 3.4-4.8 [facility] Serum or plasma albumin/glob ulin mass ratioOrdered By: Perico Monteiro on 11-30-2024 Albumin/Globulin [Mass ratio] 1.5 {ratio} 0.9-2.4 [facility] Serum or plasma alkaline nancy sphatase measurementOrdered By: Perico Monteiro on 11-30-2024 ALP [Catalytic activity/Vol] 54 U/L 40-129 [facility] Serum or plasma calcium gee urement (mass/volume)Ordered By: Perico Monteiro on 11-30-2024 Calcium [Mass/Vol] 8.8 mg/dL 7.6-11.0 [facility] Serum or plasma cholesterol in HDL measurement (mass/volume)Ordered By: Perico Monteiro on 11-30-2024 Cholesterol in HDL [Mass/Vol] 33 mg/dL Low >40 [facility] Comment on above: National Cholesterol Education Program (NCEP) guidelines:<40 mg/dL: Low HDL-cholesterol (major risk factor for CHD)>= 60 mg/dL: High HDL-cholesterol (negative risk factor for CHD)HDL-cholesterol is affected by a number of factors, e.g. smoking, exercise, hormones, sex and age. Serum or plasma cholesterol measurement (mass/volume)Ordered By: Perico Monteiro on 11-30-2024 Cholesterol [Mass/Vol] 103 mg/dL <201 [facility] Comment on above: Cholesterol level, D esirable <200 mg/dLBorderline high cholesterol 200-239 mg/dLHigh cholesterol >=240 mg/dLRecommendations of the NCEP Adult Treatment Panel for the following risk-cutoff thresholds for the [place] population. Serum or plasma urea nitroge n measurement (mass/volume)Ordered By: Perico Monteiro on 11-30-2024 Urea nitrogen [Mass/Vol] 19 mg/dL 4-19 [facility] Sodium levelOrdered By: Tonny Monteiro on 11-30-2024 Sodium [Moles/Vol] 138 mmol/L 133-145 [facility] Total proteinOrdered By: Jack Monteiro on 11-30-2024 Protein [Mass/Vol] 6.8 g/dL 5.9-8.4 [facility] Triglycerides measurementOrd ered By: Perico Monteiro on 11-30-2024 Triglyceride [Mass/Vol] 137 mg/dL <199 [facility] Comment on above: The drugs N-Acetylcy steine and Metamizole may falsely depress this assay. Normal range: <150 mg/dLBorderline High: 150-199 mg/dLHigh: 200-499 mg/dLVery High: >500 mg/dL White blood cell (WBC) count Ordered By: Perico Monteiro on 11-30-2024 WBC (Bld) [#/Vol] 6.5 10*3/uL 4.4-11.0 [facility] Microalb:Creat Ratio,Random URon 11-28-2024 Creatinine [Mass/Vol] 68.20 mg/dL Normal 39.00-259.00 [facility] Comment on above: Order Comment: PER P T-NOT DOING URINE TEST Order Date: 11/28/24 Order Info: 0786 - CMP Order Info: [id number] - LIPID Order Info: [id number] - PSA Performed By: #### L 501.9910, L500.4100, L500.4050, L100.0500 #### [facility] [address] [place], [place], [id number] MALB:CREAT UNABLE TO CALCULATE Normal [facility] Comment on above: Order Comment: PER P T-NOT DOING URINE TEST Order Date: 11/28/24 Order Info: [id number] - CMP Order Info: - LIPID Order Info: [id number] - PSA Performed By: #### L 501.9910, L500.4100, L500.4050, L100.0500 #### [facility] [address] [place], [place], [id number] MICROALBUMIN,UR < 12.0 Normal NO RANGE EST. [facility] Comment on above: Order Comment: PER P T-NOT DOING URINE TEST Order Date: 11/28/24 Order Info: [id number] - CMP Order Info: - LIPID Order Info: [id number] - PSA Performed By: #### L 501.9910, L500.4100, L500.4050, L100.0500 #### [facility] [address] [place], [place], [id number] Microalbumin/creat ratio urO rdered By: Perico Monteiro on 11-28-2024 Urine microalbumin/creatinine ratio measurement UNABLE TO CALCULATE mg/g CRE [facility] Random urine creatinine gee urement (mass/volume)Ordered By: Perico Monteiro on 11-28-2024 Creatinine Unsp time (U) [Mass/Vol] 68.20 mg/dL 39.00-259.00 [facility] Urine albumin measurement wi th detection limit of 20 mg/L or less (mass/volume)Ordered By: Perico Monteiro on 11-28-2024 Albumin DL <= 20 mg/L (U) [Mass/Vol] < 12.0 mg/L NO RANGE EST. [facility] Testosterone, Serum Totalon 12-19-2024 Testosterone [Mass/Vol] 352.05 ng/dL Normal [facility] Comment on above: Order Comment: Order Date: 05/29/24 Order Info: [id number] - YAJAIRA Result Comment: CENT RAL 90% REFERENCE RANGES MALE AGE <50 197.44 - 669.58 ng/dL MALE AGE > or = 50 187.72 - 684.19 ng/dL FEMALE AGE <50 8.38 - 35.01 ng/dL FEMALE AGE > or = 50 <7.00 - 35.92 ng/dL Effective as of 01/27/21 Performed By: #### L 100.0500, L500.4050, L500.4100, L509.3000, L501.9520 #### [facility] [address] [place], [address] CBC-Complete Blood Cnt No Di ffon 06-19-2024 Erythrocyte distribution width (RBC) [Ratio] 13.7 % Normal 11.6-14.6 [facility] Comment on above: Order Comment: Order Date: 05/29/24 Order Info: [id number] - CBC Performed By: #### L 100.0500, L500.4050, L500.4100, L509.3000, L501.9520 #### [facility] [address] [place], [address] Hematocrit (Bld) [Volume fraction] 51.9 % Normal 40-54 [facility] Comment on above: Order Comment: Order Date: 05/29/24 Order Info: [id number] - CBC Performed By: #### L 100.0500, L500.4050, L500.4100, L509.3000, L501.9520 #### [facility] [address] [place], [address] Hemoglobin (Bld) [Mass/Vol] 16.9 g/dL High 13.0-16.5 [facility] Comment on above: Order Comment: Order Date: 05/29/24 Order Info: [id number] - CBC Performed By: #### L 100.0500, L500.4050, L500.4100, L509.3000, L501.9520 #### [facility] [address] [place], [address] MCH (RBC) [Entitic mass] 29.3 pg Normal 27.0-32.0 [facility] Comment on above: Order Comment: Order Date: 05/29/24 Order Info: [id number] - CBC Performed By: #### L 100.0500, L500.4050, L500.4100, L509.3000, L501.9520 #### [facility] [address] [place], [address] MCHC (RBC) [Mass/Vol] 32.6 g/dL Normal 32-36 [facility] Comment on above: Order Comment: Order Date: 05/29/24 Order Info: [id number] - CBC Performed By: #### L 100.0500, L500.4050, L500.4100, L509.3000, L501.9520 #### [facility] [address] [place], [address] MCV (RBC) [Entitic vol] 89.9 fL Normal 80-94 [facility] Comment on above: Order Comment: Order Date: 05/29/24 Order Info: [id number] - CBC Performed By: #### L 100.0500, L500.4050, L500.4100, L509.3000, L501.9520 #### [facility] [address] [place], [address] Platelet mean volume (Bld) [Entitic vol] 9.3 fL Normal 6.2-12.0 [facility] Comment on above: Order Comment: Order Date: 05/29/24 Order Info: [id number] - CBC Performed By: #### L 100.0500, L500.4050, L500.4100, L509.3000, L501.9520 #### [facility] [address] [place], [address] Platelets (Bld) [#/Vol] 165 10*3/uL Normal 150-450 [facility] Comment on above: Order Comment: Order Date: 05/29/24 Order Info: [id number] - CBC Performed By: #### L 100.0500, L500.4050, L500.4100, L509.3000, L501.9520 #### [facility] [address] [place], [address] RBC (Bld) [#/Vol] 5.77 10*6/uL Normal 4.6-6.2 [facility] Comment on above: Order Comment: Order Date: 05/29/24 Order Info: [id number] - CBC Performed By: #### L 100.0500, L500.4050, L500.4100, L509.3000, L501.9520 #### [facility] [address] [place], [address] RDW SD 44.9 fl High 35.1-43.9 [facility] Comment on above: Order Comment: Order Date: 05/29/24 Order Info: [id number] - CBC Performed By: #### L 100.0500, L500.4050, L500.4100, L509.3000, L501.9520 #### [facility] [address] [place], [address] WBC (Bld) [#/Vol] 8.0 10*3/uL Normal 4.4-11.0 [facility] Comment on above: Order Comment: Order Date: 05/29/24 Order Info: [id number] - CBC Performed By: #### L 100.0500, L500.4050, L500.4100, L509.3000, L501.9520 #### [facility] [address] [place], [address] Comprehensive Metabolic Prof [facility] 06-19-2024 Albumin [Mass/Vol] 3.6 g/dL Normal 3.2-5.0 [facility] Comment on above: Order Comment: Order Date: 05/29/24 Order Info: 0786- - CMP Order Info: [id number] - LIPID Order Info: 3 - TSH Performed By: #### L 100.0500, L500.4050, L500.4100, L509.3000, L501.9520 #### [facility] [address] [place], [address] Albumin/Globulin [Mass ratio] 1.0 {ratio} Normal 0.9-2.4 [facility] Comment on above: Order Comment: Order Date: 05/29/24 Order Info: 07 - CMP Order Info: [id number] - LIPID Order Info: [id number] - TSH Performed By: #### L 100.0500, L500.4050, L500.4100, L509.3000, L501.9520 #### [facility] [address] [place], [address] ALK P 50 U/L Normal 45-117 [facility] Comment on above: Order Comment: Order Date: 05/29/24 Order Info: 0786 - CMP Order Info: [id number] - LIPID Order Info: [id number] - TSH Performed By: #### L 100.0500, L500.4050, L500.4100, L509.3000, L501.9520 #### [facility] [address] [place], [address] ALT [Catalytic activity/Vol] 27 U/L Normal 16-61 [facility] Comment on above: Order Comment: Order Date: 05/29/24 Order Info: 0786- - CMP Order Info: [id number] - LIPID Order Info: 3 - TSH Performed By: #### L 100.0500, L500.4050, L500.4100, L509.3000, L501.9520 #### [facility] [address] [place], [address] AST [Catalytic activity/Vol] 18 U/L Normal 15-37 [facility] Comment on above: Order Comment: Order Date: 05/29/24 Order Info: 785- - CMP Order Info: - LIPID Order Info: [id number] - TSH Performed By: #### L 100.0500, L500.4050, L500.4100, L509.3000, L501.9520 #### [facility] [address] [place], [address] Bilirubin [Mass/Vol] 0.60 mg/dL Normal 0.20-1.00 [facility] Comment on above: Order Comment: Order Date: 05/29/24 Order Info: [id number] - CMP Order Info: - LIPID Order Info: [id number] - TSH Result Comment: For patients on eltrombopag therapy, use of Dimension [place] TBIL is not recommended. Performed By: #### L 100.0500, L500.4050, L500.4100, L509.3000, L501.9520 #### [facility] [address] [place], [address] BUN/CRE 24.4 RATIO High 10-20 [facility] Comment on above: Order Comment: Order Date: 05/29/24 Order Info: [id number] - CMP Order Info: - LIPID Order Info: [id number] - TSH Performed By: #### L 100.0500, L500.4050, L500.4100, L509.3000, L501.9520 #### [facility] [address] [place], [address] CA,Total 8.7 mg/dL Normal 8.5-10.1 [facility] Comment on above: Order Comment: Order Date: 05/29/24 Order Info: [id number] - CMP Order Info: - LIPID Order Info: [id number] - TSH Performed By: #### L 100.0500, L500.4050, L500.4100, L509.3000, L501.9520 #### [facility] [address] [place], [address] Chloride [Moles/Vol] 107 mmol/L Normal 98-107 [facility] Comment on above: Order Comment: Order Date: 05/29/24 Order Info: 0786-1 - CMP Order Info: [id number] - LIPID Order Info: 3 - TSH Performed By: #### L 100.0500, L500.4050, L500.4100, L509.3000, L501.9520 #### [facility] [address] [place], [address] CO2 [Moles/Vol] 27.0 mmol/L Normal 21.0-32.0 [facility] Comment on above: Order Comment: Order Date: 05/29/24 Order Info: 0786 - CMP Order Info: [id number] - LIPID Order Info: [id number] - TSH Performed By: #### L 100.0500, L500.4050, L500.4100, L509.3000, L501.9520 #### [facility] [address] [place], [address] Creatinine [Mass/Vol] 0.90 mg/dL Normal 0.70-1.30 [facility] Comment on above: Order Comment: Order Date: 05/29/24 Order Info: 0786 - CMP Order Info: [id number] - LIPID Order Info: 3013 - TSH Result Comment: The validity of the calculated GFR GFRAA in patients over 70 years has not been determined. Clinical correlation is essential. Performed By: #### L 100.0500, L500.4050, L500.4100, L509.3000, L501.9520 #### [facility] [address] [place], [address] EST GFR - AA 108 mL/min Normal >60 [facility] Comment on above: Order Comment: Order Date: 05/29/24 Order Info: [id number] - CMP Order Info: - LIPID Order Info: 3 - TSH Result Comment: Afri can [place] GFR Calc Performed By: #### L 100.0500, L500.4050, L500.4100, L509.3000, L501.9520 #### [facility] [address] [place], [address] GAP 5 Normal 5-15 [facility] Comment on above: Order Comment: Order Date: 05/29/24 Order Info: [id number] - CMP Order Info: - LIPID Order Info: [id number] - TSH Performed By: #### L 100.0500, L500.4050, L500.4100, L509.3000, L501.9520 #### [facility] [address] [place], [address] GFR/1.73 sq M.predicted among non-blacks MDRD (S/P/Bld) [Vol rate/Area] 89 mL/min/{1.73_m2} Normal >60 [facility] Comment on above: Order Comment: Order Date: 05/29/24 Order Info: 785-07 - CMP Order Info: - LIPID Order Info: [id number] - TSH Result Comment: Non- GFR Calc Performed By: #### L 100.0500, L500.4050, L500.4100, L509.3000, L501.9520 #### [facility] [address] [place], [address] Globulin (S) [Mass/Vol] 3.6 g/dL Normal 2.2-4.2 [facility] Comment on above: Order Comment: Order Date: 05/29/24 Order Info: [id number] - CMP Order Info: - LIPID Order Info: 3 - TSH Performed By: #### L 100.0500, L500.4050, L500.4100, L509.3000, L501.9520 #### [facility] [address] [place], [address] Glucose [Mass/Vol] 130 mg/dL High 74-106 [facility] Comment on above: Order Comment: Order Date: 05/29/24 Order Info: 785-1 - CMP Order Info: [id number] - LIPID Order Info: 3015-3 - TSH Result Comment: Fast ing Glucose result greater than or equal to 126 mg/dL suggests DIABETES MELLITUS per A.D.A. criteria. Performed By: #### L 100.0500, L500.4050, L500.4100, L509.3000, L501.9520 #### [facility] [address] [place], [address] Potassium [Moles/Vol] 4.0 mmol/L Normal 3.5-5.1 [facility] Comment on above: Order Comment: Order Date: 05/29/24 Order Info: 785-07 - CMP Order Info: - LIPID Order Info: [id number] - TSH Performed By: #### L 100.0500, L500.4050, L500.4100, L509.3000, L501.9520 #### [facility] [address] [place], [address] Sodium [Moles/Vol] 140 mmol/L Normal 136-145 [facility] Comment on above: Order Comment: Order Date: 05/29/24 Order Info: [id number] - CMP Order Info: - LIPID Order Info: [id number] - TSH Performed By: #### L 100.0500, L500.4050, L500.4100, L509.3000, L501.9520 #### [facility] [address] [place], [address] T PROT 7.2 g/dL Normal 6.4-8.2 [facility] Comment on above: Order Comment: Order Date: 05/29/24 Order Info: [id number] - CMP Order Info: - LIPID Order Info: [id number] - TSH Performed By: #### L 100.0500, L500.4050, L500.4100, L509.3000, L501.9520 #### [facility] [address] [place], [address] Urea nitrogen [Mass/Vol] 22 mg/dL High 7-18 [facility] Comment on above: Order Comment: Order Date: 05/29/24 Order Info: 07- - CMP Order Info: - LIPID Order Info: 3 - TSH Performed By: #### L 100.0500, L500.4050, L500.4100, L509.3000, L501.9520 #### [facility] [address] [place], [address] Lipid Profileon 06-19-2024 Cholesterol [Mass/Vol] 99 mg/dL Normal 200 [facility] Comment on above: Order Comment: Order Date: 05/29/24 Order Info: [id number] - CMP Order Info: - LIPID Order Info: 3 - TSH Result Comment: <200 mg/dL Desirable 200-240 mg/dL Borderline >240 mg/dL High Risk Performed By: #### L 100.0500, L500.4050, L500.4100, L509.3000, L501.9520 #### [facility] [address] [place], [address] Cholesterol in HDL [Mass/Vol] 32 mg/dL Low [facility] Comment on above: Order Comment: Order Date: 05/29/24 Order Info: 0786 - CMP Order Info: [id number] - LIPID Order Info: 6-3 - TSH Result Comment: The drugs N-Acetylcysteine and Metamizole may falsely depress this assay. Reference Range HDL <40 mg/dL Low HDL Cholesterol HDL >or= 60 mg/dL High HDL Cholesterol Performed By: #### L 100.0500, L500.4050, L500.4100, L509.3000, L501.9520 #### [facility] [address] [place], [address] Cholesterol in LDL [Mass/Vol] 33 mg/dL Normal 0-130 [facility] Comment on above: Order Comment: Order Date: 05/29/24 Order Info: 0786-1 - CMP Order Info: [id number] - LIPID Order Info: 3016-3 - TSH Performed By: #### L 100.0500, L500.4050, L500.4100, L509.3000, L501.9520 #### [facility] [address] [place], [address] Cholesterol in VLDL [Mass/Vol] 34 mg/dL Normal 5-40 [facility] Comment on above: Order Comment: Order Date: 05/29/24 Order Info: 0786-1 - CMP Order Info: [id number] - LIPID Order Info: 3 - TSH Performed By: #### L 100.0500, L500.4050, L500.4100, L509.3000, L501.9520 #### [facility] [address] [place], [address] Triglyceride [Mass/Vol] 169 mg/dL Normal [facility] Comment on above: Order Comment: Order Date: 05/29/24 Order Info: 0786-1 - CMP Order Info: [id number] - LIPID Order Info: [id number] - TSH Result Comment: The drugs N-Acetylcysteine and Metamizole may falsely depress this assay. Serum Triglycerides Reference Interval Normal <150 mg/dL Borderline high 150 - 199 mg/dL High 200 - 499 mg/dL Very High > or = 500 mg/dL Performed By: #### L 100.0500, L500.4050, L500.4100, L509.3000, L501.9520 #### [facility] [address] [place], [address] Thyroid Stim Hormone (TSH)on 06-19-2024 TSH 1.160 uIU/mL Normal 0.358-3.740 [facility] Comment on above: Order Comment: Order Date: 05/29/24 Order Info: 0786-1 - CMP Order Info: [id number] - LIPID Order Info: [id number] - TSH Performed By: #### L 100.0500, L500.4050, L500.4100, L509.3000, L501.9520 #### [facility] [address] [place], [address] Shoulder min 2 Viewson 02-26 Shoulder min 2 Views [facility] [address] [place] [address] Shoulder min 2 Views MR#: [id number] Acct: [id number] Name: ALEJANDRO JEFFRIES Rep #: [id number] : [id number] M [id number] From: Mundo Rivera MD PCP: Dr. Perico Monteiro MD Status: REG CLI Study: Shoulder min 2 Views Date of Exam: 02/27/24 Exam# [id number] Ordering Dr: Perico Monteiro [id number] STUDY: X-RAY - LEFT SHOULDER REASON FOR EXAM: Male, 68 years old. pain TECHNIQUE: 4 view(s) of the shoulder. COMPARISON: None. FINDINGS: Narrowed glenohumeral articulation. Narrowed acromioclavicular joint with spurring. Normal acromion. Narrowed subacromial space which may be seen with rotator cuff tendon injury. MRI would be useful for further evaluation if indicated Normal humeral head and visualized proximal humerus. The soft tissue structures are unremarkable. Normal visualized pulmonary apex. RAD/Shoulder min 2 Views IMPRESSION: Degenerative changes. Possible rotator cuff tendon pathology. No acute fracture or dislocation. Electronically Signed: Mundo Rivera MD at 22:53 EDT , CC: Dr. Perico Monteiro MD [employer]: Signed Normal [facility] Basophil percentageOrdered B y: Perico Monteiro on 10-20-2023 Basophil percentage 0 SEEN /hpf 0-5 [facility] Bilirubin Test strip Ql (U)O rdered By: Perico Monteiro on 10-20-2023 Bilirubin Ql (U) Negative Negative [facility] Culture, urineOrdered By: Kvng Monteiro on 10-20-2023 Bacteria identified Cx Nom (U) Positive [facility] Ketones Test strip Ql (U)Ord ered By: Perico Monteiro on 10-20-2023 Ketones Ql (U) Negative Negative [facility] Mucus LM Ql (Urine sed)Order ed By: Perico Monteiro on 10-20-2023 Mucus Ql (Urine sed) 0 SEEN /hpf [facility] Nitrite Test strip Ql (U)Ord ered By: Perico Monteiro on 10-20-2023 Nitrite Ql (U) Negative Negative [facility] No Panel InformationOrdered By: Perico Monteiro on 10-20-2023 Urine RBC 0-5 SEEN /hpf 0-5 [facility] Protein Test strip Ql (U)Ord ered By: Perico Monteiro on 10-20-2023 Protein Ql (U) Negative Negative [facility] Squamous epithelial cells de tection in urine sediment by light microscopyOrdered By: Perico Monteiro on 10-20-2023 Epithelial cells.squamous LM Ql (Urine sed) 0 SEEN /hpf 0-5 [facility] Urine blood detectionOrdered By: Perico Monteiro on 10-20-2023 RBC Ql (U) 50 /ul Negative [facility] Urine clarityOrdered By: Jack Monteiro on 10-20-2023 Clarity (U) Clear Clear [facility] Urine color determinationOrd ered By: Perico Monteiro on 10-20-2023 Color (U) Yellow Yellow [facility] Urine glucose detectionOrder ed By: Perico Monteiro on 10-20-2023 Glucose Ql (U) 1000 mg/dl Normal [facility] Urine leukocyte esterase det ection by dipstickOrdered By: Perico Monteiro on 10-20-2023 Leukocyte esterase Test strip Ql (U) Negative Negative [facility] Urine pHOrdered By: Stevan Thania on 10-20-2023 pH (U) 5.0 [pH] 5.0 - 8.0 [facility] Urine sediment bacteria coun t by microscopy (number/high power field)Ordered By: Perico Monteiro on 10-20-2023 Bacteria LM.HPF (Urine sed) [#/Area] 0 /[HPF] None Seen [facility] Urine specific gravity measu rementOrdered By: Perico Monteiro on 10-20-2023 Specific gravity (U) [Rel density] 1.015 1.002-1.030 [facility] Urine urobilinogen measureme ntOrdered By: Perico Monteiro on 10-20-2023 Urobilinogen Ql (U) Normal mg/dl Normal [facility] Basophil percentageOrdered B y: Perico Monteiro on 10-19-2023 Testosterone [Mass/Vol] 226.75 ng/dL [facility] Comment on above: CENTRAL 90% REFERENC E RANGES MALE AGE <50 197.44 - 669.58 ng/dL MALE AGE > or = 50 187.72 - 684.19 ng/dL FEMALE AGE <50 8.38 - 35.01 ng/dL FEMALE AGE > or = 50 <7.00 - 35.92 ng/dL Effective as of 01/27/21 Basophil percentageOrdered B y: Cornelius Monteiro on 08-24-2023 Bilirubin [Mass/Vol] 0.40 mg/dL 0.20-1.00 [facility] Comment on above: For patients on eltr ombopag therapy, use of Dimension [place] TBIL is not recommended. Chloride [Moles/Vol] 105 mmol/L 98-107 [facility] Cholesterol [Mass/Vol] 124 mg/dL <200 [facility] Comment on above: <200 mg/dL Desirable 200-240 mg/dL Borderline >240 mg/dL High Risk Glucose [Mass/Vol] 170 mg/dL 74-106 [facility] Comment on above: Fasting Glucose resu lt greater than or equal to 126 mg/dL suggests DIABETES MELLITUS per A.D.A. criteria. Potassium [Moles/Vol] 4.2 mmol/L 3.5-5.1 [facility] Protein [Mass/Vol] 7.2 g/dL 6.4-8.2 [facility] Sodium [Moles/Vol] 139 mmol/L 136-145 [facility] Testosterone [Mass/Vol] 93.82 ng/dL [facility] Comment on above: CENTRAL 90% REFERENC E RANGES MALE AGE <50 197.44 - 669.58 ng/dL MALE AGE > or = 50 187.72 - 684.19 ng/dL FEMALE AGE <50 8.38 - 35.01 ng/dL FEMALE AGE > or = 50 <7.00 - 35.92 ng/dL Effective as of 01/27/21 Triglyceride [Mass/Vol] 283 mg/dL <199 [facility] Comment on above: The drugs N-Acetylcy steine and Metamizole may falsely depress this assay.Serum Triglycerides Reference Interval Normal <150 mg/dL Borderline high 150 - 199 mg/dL High 200 - 499 mg/dL Very High > or = 500 mg/dL Laboratory - Chemistry and C hemistry - challengeOrdered By: Cornelius Monteiro on 08-24-2023 Albumin/Globulin [Mass ratio] 0.9 {ratio} 0.9-2.4 [facility] ALP [Catalytic activity/Vol] 57 U/L 45-117 [facility] ALT [Catalytic activity/Vol] 32 U/L 16-61 [facility] Cholesterol in HDL [Mass/Vol] 36 mg/dL >40 [facility] Comment on above: The drugs N-Acetylcy steine and Metamizole may falsely depress this assay. Reference Range HDL <40 mg/dL Low HDL Cholesterol HDL >or= 60 mg/dL High HDL Cholesterol Cholesterol in LDL [Mass/Vol] 31 mg/dL 0-130 [facility] CO2 [Moles/Vol] 30.0 mmol/L 21.0-32.0 [facility] Cobalamin (Vitamin B12) [Mass/Vol] 456 pg/mL 211-911 [facility] Globulin (S) [Mass/Vol] 3.7 g/dL 2.2-4.2 [facility] Urea nitrogen/Creatinine [Mass ratio] 21.0 mg/mg 10-20 [facility] No Panel InformationOrdered By: Cornelius Monteiro on 08-24-2023 Estimated GFR (MDRD) Amer 91 mL/min >60 [facility] Comment on above: GFR Calc Estimated GFR (MDRD) Non-Af Amer 75 mL/min >60 [facility] Comment on above: Non- GFR Calc Prostate Specific Antigen Screen 0.71 ng/mL 0.00-4.00 [facility] Comment on above: This test was perfor med using the TPSA assay method for [employer] chemistry system. Values obtained with differentassay methods cannot be used interchangably.When changing PSA assays in the course of monitoring apatient, additional sequential testing should be carriedout to confirm baseline values. VLDL Cholesterol 57 mg/dL 5-40 [facility] Serum or plasma calcium gee urement (mass/volume)Ordered By: Cornelius Monteiro on 08-24-2023 Calcium [Mass/Vol] 8.5 mg/dL 8.5-10.1 [facility] Serum or plasma creatinine m easurement (mass/volume)Ordered By: Cornelius Monteiro on 08-24-2023 Creatinine [Mass/Vol] 1.05 mg/dL 0.70-1.30 [facility] Comment on above: The validity of the calculated GFR & GFRAA in patients over 70 years has not been determined. Clinical correlation is essential. Serum or plasma thyroid stim ulating hormone (TSH) measurement (units/volume)Ordered By: Cornelius Monteiro on 08-24-2023 TSH Qn 3.14 uIU/mL 0.358-3.74 [facility] Serum or plasma urea nitroge n measurement (mass/volume)Ordered By: Cornelius Monteiro on 08-24-2023 Urea nitrogen [Mass/Vol] 22 mg/dL 7-18 [facility] Thin prep Papanicolaou smear with manual screeningOrdered By: Cornelius Monteiro on 08-24-2023 Thin prep Papanicolaou smear with manual screening 3.5 g/dL 3.2-5.0 [facility] Thin prep Papanicolaou smear with manual screening 19 U/L 15-37 [facility] Thin prep Papanicolaou smear with manual screening 4 5-15 [facility] Whole blood hemoglobin A1c/t otal hemoglobin ratio (mass fraction)Ordered By: Cornelius Monteiro on 08-24-2023 HbA1c (Bld) [Mass fraction] 9.0 % 3.8-5.6 [facility] Comment on above: Normal < 5.7 % Predi abetic 5.7 - 6.4 % Diabetic >or= 6.5 % Please note range changes. Basophil percentageOrdered B y: Cornelius Monteiro on 03-18-2023 Bilirubin [Mass/Vol] 0.40 mg/dL 0.20-1.00 [facility] Comment on above: For patients on eltr ombopag therapy, use of Dimension [place] TBIL is not recommended. Chloride [Moles/Vol] 104 mmol/L 98-107 [facility] Cholesterol [Mass/Vol] 95 mg/dL <200 [facility] Comment on above: <200 mg/dL Desirable 200-240 mg/dL Borderline >240 mg/dL High Risk Glucose [Mass/Vol] 219 mg/dL 74-106 [facility] Comment on above: Glucose result great er than or equal to 200 mg/dLsuggests DIABETES MELLITUS per A.D.A. criteria. Potassium [Moles/Vol] 4.1 mmol/L 3.5-5.1 [facility] Protein [Mass/Vol] 7.0 g/dL 6.4-8.2 [facility] Sodium [Moles/Vol] 139 mmol/L 136-145 [facility] Triglyceride [Mass/Vol] 185 mg/dL <199 [facility] Comment on above: The drugs N-Acetylcy steine and Metamizole may falsely depress this assay.Serum Triglycerides Reference Interval Normal <150 mg/dL Borderline high 150 - 199 mg/dL High 200 - 499 mg/dL Very High > or = 500 mg/dL WBC (Bld) [#/Vol] 8.0 10*3/uL 4.4-11.0 [facility] Blood erythrocytes count (nu mber/volume)Ordered By: Cornelius Monteiro on 03-18-2023 RBC (Bld) [#/Vol] 5.55 10*6/uL 4.6-6.2 [facility] Blood hemoglobin measurement (mass/volume)Ordered By: Cornelius Monteiro on 03-18-2023 Hemoglobin (Bld) [Mass/Vol] 15.2 g/dL 13.0-16.5 [facility] Blood platelet mean volumeOr dered By: Cornelius Monteiro on 03-18-2023 Platelet mean volume (Bld) [Entitic vol] 9.9 fL 6.2-12.0 [facility] Determination of erythrocyte mean corpuscular volume (MCV)Ordered By: Cornelius Monteiro on 03-18-2023 MCV (RBC) [Entitic vol] 90.8 fL 80-94 [facility] Hematocrit Auto (Bld) [Volum e fraction]Ordered By: Cornelius Monteiro on 03-18-2023 Hematocrit (Bld) [Volume fraction] 50.4 % 40-54 [facility] Laboratory - Chemistry and C hemistry - challengeOrdered By: Cornelius Ranney on 03-18-2023 ALP [Catalytic activity/Vol] 60 U/L 45-117 [facility] ALT [Catalytic activity/Vol] 27 U/L 16-61 [facility] CO2 [Moles/Vol] 31.0 mmol/L 21.0-32.0 [facility] Cobalamin (Vitamin B12) [Mass/Vol] 485 pg/mL 211-911 [facility] Globulin (S) [Mass/Vol] 3.7 g/dL 2.2-4.2 [facility] Urea nitrogen/Creatinine [Mass ratio] 13.9 mg/mg 10-20 [facility] Laboratory - Hematology and Cell countsOrdered By: Cornelius Monteiro on 03-18-2023 Erythrocyte distribution width (RBC) [Entitic vol] 48.2 fL 35.1-43.9 [facility] Erythrocyte distribution width (RBC) [Ratio] 14.5 % 11.6-14.6 [facility] MCH (RBC) [Entitic mass] 27.4 pg 27.0-32.0 [facility] MCHC Auto (RBC) [Mass/Vol]Or dered By: Cornelius Monteiro on 03-18-2023 MCHC (RBC) [Mass/Vol] 30.2 g/dL 32-36 [facility] No Panel InformationOrdered By: Cornelius Monteiro on 03-18-2023 Estimated GFR (MDRD) Amer 82 mL/min >60 [facility] Comment on above: GFR Calc Estimated GFR (MDRD) Non-Af Amer 67 mL/min >60 [facility] Comment on above: Non- GFR Calc Platelets bldOrdered By: Jack erostopjune Thania on 03-18-2023 Platelets (Bld) [#/Vol] 217 10*3/uL 150-450 [facility] Serum or plasma albumin gee urement (mass/volume)Ordered By: Cornelius Monteiro on 03-18-2023 Albumin [Mass/Vol] 3.3 g/dL 3.2-5.0 [facility] Serum or plasma albumin/glob ulin mass ratioOrdered By: Cornelius Monteiro on 03-18-2023 Albumin/Globulin [Mass ratio] 0.9 {ratio} 0.9-2.4 [facility] Serum or plasma calcium gee urement (mass/volume)Ordered By: Cornelius Monteiro on 03-18-2023 Calcium [Mass/Vol] 8.5 mg/dL 8.5-10.1 [facility] Serum or plasma cholesterol in HDL measurement (mass/volume)Ordered By: Cornelius Monteiro on 03-18-2023 Cholesterol in HDL [Mass/Vol] 30 mg/dL >40 [facility] Comment on above: The drugs N-Acetylcy steine and Metamizole may falsely depress this assay. Reference Range HDL <40 mg/dL Low HDL Cholesterol HDL >or= 60 mg/dL High HDL Cholesterol Serum or plasma cholesterol in VLDL measurement (mass/volume)Ordered By: Cornelius Monteiro on 03-18-2023 Cholesterol in VLDL [Mass/Vol] 37 mg/dL 5-40 [facility] Serum or plasma creatinine m easurement (mass/volume)Ordered By: Cornelius Monteiro on 03-18-2023 Creatinine [Mass/Vol] 1.15 mg/dL 0.70-1.30 [facility] Comment on above: The validity of the calculated GFR & GFRAA in patients over 70 years has not been determined. Clinical correlation is essential. Serum or plasma low density lipoprotein (LDL) cholesterol measurement (mass/volume)Ordered By: Cornelius Monteiro on 03-18-2023 Cholesterol in LDL [Mass/Vol] 28 mg/dL 0-130 [facility] Serum or plasma urea nitroge n measurement (mass/volume)Ordered By: Cornelius Monteiro on 03-18-2023 Urea nitrogen [Mass/Vol] 16 mg/dL 7-18 [facility] Thin prep Papanicolaou smear with manual screeningOrdered By: Cornelius Monteiro on 03-18-2023 Thin prep Papanicolaou smear with manual screening 22 U/L 15-37 [facility] Thin prep Papanicolaou smear with manual screening 4 5-15 [facility] No Panel InformationOrdered By: Dr. Conner on 09-15-2022 Endomysial IgA Antibody Negative Negative [facility] Comment on above: Serum is slightly li pemic. Serum IgA measurement (units /volume)Ordered By: Dr. Conner on 09-15-2022 IgA Qn (S) 243 mg/dL 61-437 [facility] Comment on above: Performed at: [facility] [place] [id number] Director: Lucho Sinha PhD, Phone: [phone] Serum or plasma C reactive p rotein measurement (mass/volume)Ordered By: Dr. Conner on 09-15-2022 CRP [Mass/Vol] 3.49 mg/L 0.0-3.0 [facility] Comment on above: C-Reactive Protein ( CRP) provides useful information for thediagnosis, therapy and monitoring of inflammatory processesand associated diseases. For the evaluation of Relative Riskfor Cardiovascular Disease, a High Sensitivity CRP (HSCRP)should be ordered. Serum tissue transglutaminas e IgA antibody assay (units/volume)Ordered By: Dr. Conner on 09-15-2022 tTG IgA Qn (S) <2 U/mL 0-3 [facility] Comment on above: Negative 0 - 3 Weak Positive 4 - 10 Positive >10 Tissue Transglutaminase (tTG) has been identified as the endomysial antigen. Studies have demonstr- ated that endomysial IgA antibodies have over 99% specificity for gluten sensitive enteropathy. Stool gastrointestinal hemog lobin detection by immunologic methodOrdered By: Dr. Conner on 09-15-2022 Lower GI hemoglobin IA Ql (Stl) [facility] Basophil percentageOrdered B y: Dr. Monteiro on 07-21-2022 Bilirubin [Mass/Vol] 0.30 mg/dL 0.20-1.00 [facility] Comment on above: For patients on eltr ombopag therapy, use of Dimension [place] TBIL is not recommended. Chloride [Moles/Vol] 103 mmol/L 98-107 [facility] Cholesterol [Mass/Vol] 145 mg/dL <200 [facility] Comment on above: <200 mg/dL Desirable 200-240 mg/dL Borderline >240 mg/dL High Risk Glucose [Mass/Vol] 150 mg/dL 74-106 [facility] Comment on above: Fasting Glucose resu lt greater than or equal to 126 mg/dL suggests DIABETES MELLITUS per A.D.A. criteria. Potassium [Moles/Vol] 4.2 mmol/L 3.5-5.1 [facility] Protein [Mass/Vol] 7.3 g/dL 6.4-8.2 [facility] Sodium [Moles/Vol] 138 mmol/L 136-145 [facility] Testosterone [Mass/Vol] 388.01 ng/dL [facility] Comment on above: CENTRAL 90% REFERENC E RANGES MALE AGE <50 197.44 - 669.58 ng/dL MALE AGE > or = 50 187.72 - 684.19 ng/dL FEMALE AGE <50 8.38 - 35.01 ng/dL FEMALE AGE > or = 50 <7.00 - 35.92 ng/dL Effective as of 01/27/21 Triglyceride [Mass/Vol] 408 mg/dL <199 [facility] Comment on above: The drugs N-Acetylcy steine and Metamizole may falsely depress this assay. TRIGLYCERIDE IS GREATER THAN 400 mg/dL. LDL RESULT IS INVALID AND WILL NOT BE REPORTED.Serum Triglycerides Reference Interval Normal <150 mg/dL Borderline high 150 - 199 mg/dL High 200 - 499 mg/dL Very High > or = 500 mg/dL WBC (Bld) [#/Vol] 8.5 10*3/uL 4.4-11.0 [facility] Blood erythrocytes count (nu mber/volume)Ordered By: Dr. Monteiro on 07-21-2022 RBC (Bld) [#/Vol] 4.61 10*6/uL 4.6-6.2 [facility] Blood hemoglobin measurement (mass/volume)Ordered By: Dr. Monteiro on 07-21-2022 Hemoglobin (Bld) [Mass/Vol] 13.7 g/dL 13.0-16.5 [facility] Blood platelet mean volumeOr dered By: Dr. Monteiro on 07-21-2022 Platelet mean volume (Bld) [Entitic vol] 9.9 fL 6.2-12.0 [facility] Determination of erythrocyte mean corpuscular volume (MCV)Ordered By: Dr. Monteiro on 07-21-2022 MCV (RBC) [Entitic vol] 93.5 fL 80-94 [facility] Hematocrit Auto (Bld) [Volum e fraction]Ordered By: Dr. Monteiro on 07-21-2022 Hematocrit (Bld) [Volume fraction] 43.1 % 40-54 [facility] Laboratory - Chemistry and C hemistry - challengeOrdered By: Dr. Monteiro on 07-21-2022 ALP [Catalytic activity/Vol] 58 U/L 45-117 [facility] ALT [Catalytic activity/Vol] 24 U/L 16-61 [facility] CO2 [Moles/Vol] 29.0 mmol/L 21.0-32.0 [facility] Globulin (S) [Mass/Vol] 3.6 g/dL 2.2-4.2 [facility] Urea nitrogen/Creatinine [Mass ratio] 18.8 mg/mg 10-20 [facility] Laboratory - Hematology and Cell countsOrdered By: Dr. Monteiro on 07-21-2022 Erythrocyte distribution width (RBC) [Entitic vol] 46.5 fL 35.1-43.9 [facility] Erythrocyte distribution width (RBC) [Ratio] 13.6 % 11.6-14.6 [facility] MCH (RBC) [Entitic mass] 29.7 pg 27.0-32.0 [facility] MCHC Auto (RBC) [Mass/Vol]Or dered By: Dr. Monteiro on 07-21-2022 MCHC (RBC) [Mass/Vol] 31.8 g/dL 32-36 [facility] No Panel InformationOrdered By: Dr. Monteiro on 07-21-2022 Estimated GFR (MDRD) Amer 101 mL/min >60 [facility] Comment on above: GFR Calc Estimated GFR (MDRD) Non-Af Amer 83 mL/min >60 [facility] Comment on above: Non- GFR Calc Platelets bldOrdered By: Dr. Monteiro on 07-21-2022 Platelets (Bld) [#/Vol] 232 10*3/uL 150-450 [facility] Serum or plasma albumin gee urement (mass/volume)Ordered By: Dr. Monteiro on 07-21-2022 Albumin [Mass/Vol] 3.7 g/dL 3.2-5.0 [facility] Serum or plasma albumin/glob ulin mass ratioOrdered By: Dr. Monteiro on 07-21-2022 Albumin/Globulin [Mass ratio] 1.0 {ratio} 0.9-2.4 [facility] Serum or plasma calcium gee urement (mass/volume)Ordered By: Dr. Monteiro on 07-21-2022 Calcium [Mass/Vol] 9.0 mg/dL 8.5-10.1 [facility] Serum or plasma cholesterol in HDL measurement (mass/volume)Ordered By: Dr. Monteiro on 07-21-2022 Cholesterol in HDL [Mass/Vol] 33 mg/dL >40 [facility] Comment on above: The drugs N-Acetylcy steine and Metamizole may falsely depress this assay. Reference Range HDL <40 mg/dL Low HDL Cholesterol HDL >or= 60 mg/dL High HDL Cholesterol Serum or plasma cholesterol in VLDL measurement (mass/volume)Ordered By: Dr. Monteiro on 07-21-2022 Cholesterol in VLDL [Mass/Vol] TNP [facility] Comment on above: Test not performed Serum or plasma creatinine m easurement (mass/volume)Ordered By: Dr. Monteiro on 07-21-2022 Creatinine [Mass/Vol] 0.96 mg/dL 0.70-1.30 [facility] Comment on above: The validity of the calculated GFR & GFRAA in patients over 70 years has not been determined. Clinical correlation is essential. Serum or plasma low density lipoprotein (LDL) cholesterol measurement (mass/volume)Ordered By: Dr. Monteiro on 07-21-2022 Cholesterol in LDL [Mass/Vol] TNP [facility] Comment on above: Test not performed Serum or plasma urea nitroge n measurement (mass/volume)Ordered By: Dr. Monteiro on 07-21-2022 Urea nitrogen [Mass/Vol] 18 mg/dL 7-18 [facility] Thin prep Papanicolaou smear with manual screeningOrdered By: Dr. Monteiro on 07-21-2022 Thin prep Papanicolaou smear with manual screening 15 U/L 15-37 [facility] Thin prep Papanicolaou smear with manual screening 6 5-15 [facility] Ova and parasitesOrdered By: Dr. Monteiro on 05-18-2022 Ova and parasites identified LM Nom (Unsp spec) [facility] Absolute lymphocyte countOrd ered By: Dr. Monteiro on 04-20-2022 Lymphocytes Auto (Unsp spec) [#/Vol] 2.68 10*3/uL 0.83-4.51 [facility] Basophil percentageOrdered B y: Dr. Monteiro on 04-20-2022 Amylase [Catalytic activity/Vol] 32 U/L 25-115 [facility] Basophils/100 WBC (Bld) 0.6 % 0-1 [facility] Bilirubin [Mass/Vol] 0.20 mg/dL 0.20-1.00 [facility] Comment on above: For patients on eltr ombopag therapy, use of Dimension [place] TBIL is not recommended. Chloride [Moles/Vol] 102 mmol/L 98-107 [facility] Eosinophils/100 WBC (Bld) 4.1 % 0-5 [facility] Glucose [Mass/Vol] 159 mg/dL 74-106 [facility] Comment on above: Fasting Glucose resu lt greater than or equal to 126 mg/dL suggests DIABETES MELLITUS per A.D.A. criteria. Neutrophils (Bld) [#/Vol] 5.6 10*3/uL 2.0-7.7 [facility] Neutrophils/100 WBC (Bld) 58.7 % 47-70 [facility] Potassium [Moles/Vol] 4.1 mmol/L 3.5-5.1 [facility] Protein [Mass/Vol] 7.8 g/dL 6.4-8.2 [facility] Sodium [Moles/Vol] 138 mmol/L 136-145 [facility] WBC (Bld) [#/Vol] 9.5 10*3/uL 4.4-11.0 [facility] Blood erythrocytes count (nu mber/volume)Ordered By: Dr. Monteiro on 04-20-2022 RBC (Bld) [#/Vol] 4.87 10*6/uL 4.6-6.2 [facility] Blood hemoglobin measurement (mass/volume)Ordered By: Dr. Monteiro on 04-20-2022 Hemoglobin (Bld) [Mass/Vol] 14.8 g/dL 13.0-16.5 [facility] Blood lymphocytes/100 leukoc ytesOrdered By: Dr. Monteiro on 04-20-2022 Lymphocytes/100 WBC (Bld) 28.3 % 19-41 [facility] Blood monocytes/100 leukocyt esOrdered By: Dr. Monteiro on 04-20-2022 Monocytes/100 WBC (Bld) 7.2 % 0-10 [facility] Blood platelet mean volumeOr dered By: Dr. Monteiro on 04-20-2022 Platelet mean volume (Bld) [Entitic vol] 9.5 fL 6.2-12.0 [facility] Determination of erythrocyte mean corpuscular volume (MCV)Ordered By: Dr. Monteiro on 04-20-2022 MCV (RBC) [Entitic vol] 91.8 fL 80-94 [facility] Erythrocyte sedimentation ra teOrdered By: Dr. Monteiro on 04-20-2022 ESR (Bld) [Velocity] 16 mm/h 0-20 [facility] Hematocrit Auto (Bld) [Volum e fraction]Ordered By: Dr. Monteiro on 04-20-2022 Hematocrit (Bld) [Volume fraction] 44.7 % 40-54 [facility] Laboratory - Chemistry and C hemistry - challengeOrdered By: Dr. Monteiro on 04-20-2022 ALP [Catalytic activity/Vol] 67 U/L 45-117 [facility] ALT [Catalytic activity/Vol] 22 U/L 16-61 [facility] CO2 [Moles/Vol] 29.0 mmol/L 21.0-32.0 [facility] Globulin (S) [Mass/Vol] 4.3 g/dL 2.2-4.2 [facility] Lipase [Catalytic activity/Vol] 165 U/L 73-393 [facility] Urea nitrogen/Creatinine [Mass ratio] 14.1 mg/mg 10-20 [facility] Laboratory - Hematology and Cell countsOrdered By: Dr. Monteiro on 04-20-2022 Erythrocyte distribution width (RBC) [Entitic vol] 44.4 fL 35.1-43.9 [facility] Erythrocyte distribution width (RBC) [Ratio] 13.2 % 11.6-14.6 [facility] Immature granulocytes/100 WBC (Bld) 1.100 % 0.0-0.9 [facility] Comment on above: IG% - Immature Granu locytes (promyelocytes, myelocytes and metamyelocytes) > 1% indicates that a LEFT SHIFT is Present. MCH (RBC) [Entitic mass] 30.4 pg 27.0-32.0 [facility] Nucleated RBC/100 WBC (Bld) [Ratio] 0 % 0-5 [facility] MCHC Auto (RBC) [Mass/Vol]Or dered By: Dr. Monteiro on 04-20-2022 MCHC (RBC) [Mass/Vol] 33.1 g/dL 32-36 [facility] No Panel InformationOrdered By: Dr. Monteiro on 04-20-2022 Estimated GFR (MDRD) Amer 68 mL/min >60 [facility] Comment on above: GFR Calc Estimated GFR (MDRD) Non-Af Amer 56 mL/min >60 [facility] Comment on above: Non- GFR Calc Platelets bldOrdered By: Dr. Monteiro on 04-20-2022 Platelets (Bld) [#/Vol] 273 10*3/uL 150-450 [facility] Serum or plasma albumin gee urement (mass/volume)Ordered By: Dr. Monteiro on 04-20-2022 Albumin [Mass/Vol] 3.5 g/dL 3.2-5.0 [facility] Serum or plasma albumin/glob ulin mass ratioOrdered By: Dr. Monteiro on 04-20-2022 Albumin/Globulin [Mass ratio] 0.8 {ratio} 0.9-2.4 [facility] Serum or plasma calcium gee urement (mass/volume)Ordered By: Dr. Monteiro on 04-20-2022 Calcium [Mass/Vol] 9.3 mg/dL 8.5-10.1 [facility] Serum or plasma creatinine m easurement (mass/volume)Ordered By: Dr. Monteiro on 04-20-2022 Creatinine [Mass/Vol] 1.35 mg/dL 0.70-1.30 [facility] Comment on above: The validity of the calculated GFR & GFRAA in patients over 70 years has not been determined. Clinical correlation is essential. Serum or plasma urea nitroge n measurement (mass/volume)Ordered By: Dr. Monteiro on 04-20-2022 Urea nitrogen [Mass/Vol] 19 mg/dL 7-18 [facility] Thin prep Papanicolaou smear with manual screeningOrdered By: Dr. Monteiro on 04-20-2022 Thin prep Papanicolaou smear with manual screening 12 U/L 15-37 [facility] Thin prep Papanicolaou smear with manual screening 7 5-15 [facility] Basophil percentageon 2021 Basophil percentage 0 SEEN /hpf 0-5 [facility] Work Phone: Bilirubin Test strip Ql (U)o n 03-15-2022 Bilirubin Ql (U) Negative Negative [facility] Work Phone: Ketones Test strip Ql (U)on 03-15-2022 Ketones Ql (U) Negative Negative [facility] Work Phone: Mucus LM Ql (Urine sed)on Mucus Ql (Urine sed) 0 SEEN /hpf [facility] Work Phone: Nitrite Test strip Ql (U)on 03-15-2022 Nitrite Ql (U) Negative Negative [facility] Work Phone: Protein Test strip Ql (U)on 03-15-2022 Protein Ql (U) 30 mg/dl Negative [facility] Work Phone: Squamous epithelial cells de tection in urine sediment by light microscopyon 03-15-2022 Epithelial cells.squamous LM Ql (Urine sed) 0 SEEN /hpf 0-5 [facility] Work Phone: Urine blood detectionon 03-04 RBC Ql (U) 250 /ul Negative [facility] Work Phone: [phone] RBC Ql (U) 25-50 SEEN /hpf 0-5 [facility] Work Phone: Urine clarityon 03-15-2022 Clarity (U) Clear Clear [facility] Work Phone: Urine color determinationon 03-15-2022 Color (U) Yellow Yellow [facility] Work Phone: Urine glucose detectionon Glucose Ql (U) Normal mg/dl Normal [facility] Work Phone: Urine leukocyte esterase det ection by dipstickon 03-15-2022 Leukocyte esterase Test strip Ql (U) Negative Negative [facility] Work Phone: Urine pHon 03-15-2022 pH (U) 5.0 [pH] 5.0 - 8.0 [facility] Work Phone: Urine sediment bacteria coun t by microscopy (number/high power field)on 03-15-2022 Bacteria LM.HPF (Urine sed) [#/Area] RARE /hpf None Seen [facility] Work Phone: Urine specific gravity measu rementon 03-15-2022 Specific gravity (U) [Rel density] 1.025 1.002-1.030 [facility] Work Phone: Urobilinogen Auto test strip Ql (U)on 03-15-2022 Urobilinogen Ql (U) Normal mg/dl Normal [facility] Work Phone: Laboratory - Microbiology an d Antimicrobial susceptibilityon 02-17-2022 SARS-CoV-2 (COVID-19) RNA TAMARA+probe Ql (Unsp spec) Detected Not Detect [facility] Work Phone: Comment on above: Normal Reference Ran ge: Not DetectedMethod:(RT-PCR) real-time reverse transcriptase PCRLuminex MARYCRUZ Instrument*The Food and Drug Administration (FDA) has issued an Emergency Use Authorization (EAU) for the MARYCRUZ SARS-CoV-2 Assay for the rapid detection of the virus that causes COVID-19. This test has been validated, but the FDAs independent review of this validation is pending.*Negative results do not preclude infection and should not be used as the sole basis for treatment or patient management. Optimum specimen types and timing for peak viral levels during infections caused by SARS-CoV-2 have not been determined. Collection of multiple specimens from the same patient may be necessary to detect the virus. The possibility of a false negative result should be considered if the patient has clinical presentation or has had recent exposure. Basophil percentageon 2021 Bilirubin [Mass/Vol] 0.40 mg/dL 0.20-1.00 [facility] Work Phone: Comment on above: For patients on eltr ombopag therapy, use of Dimension [place] TBIL is not recommended. Chloride [Moles/Vol] 104 mmol/L 98-107 [facility] Work Phone: Cholesterol [Mass/Vol] 153 mg/dL <200 [facility] Work Phone: [phone] Comment on above: <200 mg/dL Desirable 200-240 mg/dL Borderline >240 mg/dL High Risk Glucose [Mass/Vol] 148 mg/dL 74-106 [facility] Work Phone: [phone] Comment on above: Fasting Glucose resu lt greater than or equal to 126 mg/dL suggests DIABETES MELLITUS per A.D.A. criteria. Potassium [Moles/Vol] 4.4 mmol/L 3.5-5.1 [facility] Work Phone: [phone] Protein [Mass/Vol] 7.4 g/dL 6.4-8.2 [facility] Work Phone: [phone] Sodium [Moles/Vol] 137 mmol/L 136-145 [facility] Work Phone: [phone] Testosterone [Mass/Vol] 189.72 ng/dL [facility] Work Phone: [phone] Comment on above: CENTRAL 90% REFERENC E RANGES MALE AGE <50 197.44 - 669.58 ng/dL MALE AGE > or = 50 187.72 - 684.19 ng/dL FEMALE AGE <50 8.38 - 35.01 ng/dL FEMALE AGE > or = 50 <7.00 - 35.92 ng/dL Effective as of 01/27/21 Triglyceride [Mass/Vol] 456 mg/dL <199 [facility] [facility] Work Phone: [phone] Comment on above: The drugs N-Acetylcy steine and Metamizole may falsely depress this assay. TRIGLYCERIDE IS GREATER THAN 400 mg/dL. LDL RESULT IS INVALID AND WILL NOT BE REPORTED.Serum Triglycerides Reference Interval Normal <150 mg/dL Borderline high 150 - 199 mg/dL High 200 - 499 mg/dL Very High > or = 500 mg/dL Laboratory - Chemistry and C hemistry - challengeon 10-24-2021 ALP [Catalytic activity/Vol] 54 U/L 45-117 [facility] Work Phone: [phone] [Catalytic activity/Vol] 30 U/L 16-61 [facility] Work Phone: [phone] CO2 [Moles/Vol] 29.0 mmol/L 21.0-32.0 [facility] Work Phone: [phone] Globulin (S) [Mass/Vol] 3.8 g/dL 2.2-4.2 [facility] Work Phone: [phone] Urea nitrogen/Creatinine [Mass ratio] 15.6 mg/mg 10-20 [facility] Work Phone: [phone] No Panel Informationon 10-24 Estimated GFR (MDRD) Amer 101 mL/min >60 [facility] Work Phone: [phone] Comment on above: GFR Calc Estimated GFR (MDRD) Non-Af Amer 83 mL/min >60 [facility] Work Phone: [phone] Comment on above: Non- GFR Calc Prostate Specific Antigen Screen 0.83 ng/mL 0.00-4.00 [facility] Work Phone: Comment on above: This test was perfor med using the TPSA assay method for [employer] system. Values obtained with differentassay methods cannot be used interchangably.When changing PSA assays in the course of monitoring apatient, additional sequential testing should be carriedout to confirm baseline values. Serum or plasma albumin gee urement (mass/volume)on 10-24-2021 Albumin [Mass/Vol] 3.6 g/dL 3.2-5.0 [facility] Work Phone: Serum or plasma albumin/glob ulin mass ratioon 10-24-2021 Albumin/Globulin [Mass ratio] 0.9 {ratio} 0.9-2.4 [facility] Work Phone: Serum or plasma calcium gee urement (mass/volume)on 10-24-2021 Calcium [Mass/Vol] 8.6 mg/dL 8.5-10.1 [facility] Work Phone: Serum or plasma cholesterol in HDL measurement (mass/volume)on 10-24-2021 Cholesterol in HDL [Mass/Vol] 33 mg/dL >40 [facility] Work Phone: Comment on above: The drugs N-Acetylcy steine and Metamizole may falsely depress this assay. Reference Range HDL <40 mg/dL Low HDL Cholesterol HDL >or= 60 mg/dL High HDL Cholesterol Serum or plasma cholesterol in VLDL measurement (mass/volume)on 10-24-2021 Cholesterol in VLDL [Mass/Vol] [facility] Work Phone: Comment on above: Test not performed Serum or plasma creatinine m easurement (mass/volume)on 10-24-2021 Creatinine [Mass/Vol] 0.96 mg/dL 0.70-1.30 [facility] Work Phone: Comment on above: The validity of the calculated GFR & GFRAA in patients over 70 years has not been determined. Clinical correlation is essential. Serum or plasma low density lipoprotein (LDL) cholesterol measurement (mass/volume)on 10-24-2021 Cholesterol in LDL [Mass/Vol] [facility] Work Phone: Comment on above: Test not performed Serum or plasma urea nitroge n measurement (mass/volume)on 10-24-2021 Urea nitrogen [Mass/Vol] 15 mg/dL 7-18 [facility] Work Phone: [phone] Thin prep Papanicolaou smear with manual screeningon 10-24-2021 Thin prep Papanicolaou smear with manual screening 17 U/L 15-37 [facility] Work Phone: [phone] Thin prep Papanicolaou smear with manual screening 4 5-15 [facility] Work Phone: [phone] Culture, urine Bacteria identified Cx Nom (U) Culture exhibits no growth. [facility] Work Phone: [phone] Ova and parasites Ova and parasites identified LM Nom (Unsp spec) [facility] Work Phone: [phone] Vital Signs Date Time Vital Sign Value Performing Clinician Faci lity 03-15-2022 05:33-0400 Diastolic blood pressure 82 mm[Hg] [facility] Work Phone: 03-15-2022 05:33-0400 Heart rate 81 /min [facility] Work Phone: 03-15-2022 05:33-0400 Respiratory rate 16 /min [facility] Work Phone: 03-15-2022 05:33-0400 SaO2% (BldA) [Mass fraction] 97 % [facility] Work Phone: 03-15-2022 05:33-0400 Systolic blood pressure 140 mm[Hg] [facility] Work Phone: 03-15-2022 03:07-0400 Body height 180.34 cm [facility] Work Phone: 03-15-2022 03:07-0400 Body mass index (BMI) [Ratio] 40.9 kg/m2 [facility] Work Phone: 03-15-2022 03:07-0400 Body temperature 97 [degF] [facility] Work Phone: 03-15-2022 03:07-0400 Body weight 133.2 kg [facility] Work Phone: Encounters Encounter Date Encounter Type Care Provider Facility [facility]: [facility]05[facility] Start: 12-03-2024 Encounter for genera l adult medical examination without abnormal findings Perico Monteiro [facility] Start: 11-30-[address] Perico Monteiro MD -Laboratory [facility] Start: 11-30-2024 ambulatory Perico Hargrove lity:[facility] Start: 11-28-2024 End: 11-28-[address] Perico Monteiro MD Work Phone: [facility] Work Phone: Start: 11-28-2024 End: 11-28-[address] Perico Monteiro MD -Laboratory Work Phone: Start: 11-28-2024 End: 11-28-2024 ambulatory Perico Monteiro Facility:[facility] Start: 06-19-2024 End: 06-19-2024 ambulatory Perico Monteiro Facility:[facility] Start: 02-27-2024 End: 02-27-2024 [facility] Start: 10-19-2023 End: 10-19-2023 ambulatory [facility] Work Phone: Start: 10-19-2023 End: 10-19-2023 Patient encounter procedure [facility] Start: 08-24-2023 End: 08-24-2023 ambulatory [facility] Work Phone: Start: 08-24-2023 End: 08-24-2023 [facility] Work Phone: Start: 03-18-2023 End: 03-18-2023 ambulatory [facility] Work Phone: Start: 03-18-2023 End: 03-18-2023 [facility] Work [facility]: Start: 09-15-2022 End: 09-15-[address] Cornelius Monteiro Work Phone: [facility] Work Phone: Start: 09-15-2022 End: 09-15-[address] Cornelius Monteiro Work Phone: [facility] Start: 07-30-2022 End: 07-30-[address] Cornelius Monteiro Work Phone: [facility] Work Phone: Start: 07-30-2022 End: 07-30-2022 [facility] Start: 07-22-2022 End: 07-22-2022 Non-patient / Non-visit Dr. Cornelius Monteiro Work Phone: [facility] Start: 07-22-2022 End: 07-22-2022 ambulatory [facility] Work Phone: Start: 07-22-2022 End: 07-22-2022 Patient encounter procedure [facility] Start: 07-21-2022 End: 07-21-2022 ambulatory [facility] Work Phone: Start: 07-21-2022 End: 07-21-2022 Patient encounter procedure [facility] Start: 05-20-2022 End: 05-20-2022 ambulatory [facility] Work Phone: Start: 05-20-2022 End: 05-20-2022 [facility] encounter [facility] Start: 05-12-2022 End: 05-12-2022 ambulatory [facility] Work Phone: Start: 05-12-2022 End: 05-12-2022 Patient encounter procedure [facility]Laboratory, Specimen Start: 05-04-2022 End: 05-04-2022 Patient encounter procedure [facility] Start: 04-20-2022 End: 04-20-2022 ambulatory [facility] Work Phone: Start: 04-20-2022 End: 04-20-2022 Patient encounter procedure [facility], [facility] Start: 03-15-2022 End: 03-15-2022 Emergency department patient visit [facility] Start: 02-17-2022 End: 02-17-2022 ambulatory [facility] Work Phone: Start: 02-17-2022 End: 02-17-2022 Patient encounter procedure [facility]Laboratory, Specimen Start: 01-06-2022 End: 01-06-2022 Patient encounter procedure [facility], [place] Start: 10-24-2021 End: 10-24-2021 Patient encounter procedure [facility]Labor[facility] Procedures Date Procedure Procedure Detail Performing Clinician Start: 11-30-2024 Prostate specific an tigen measurement Dr. Perico Monteiro MD Work Phone: Comment on above: This test was perfor med using the [employer] tPSA method. Measured values of a patient sample can vary depending on the testing procedure used. PSA values determined on patient samples by different testing procedures cannot be used interchangeably. If there is a change in PSA assays while monitoring therapy, sequential testing should be performed to confirm baseline values. Start: 10-20-2023 Urine culture Start: 05-20-2022 CT of abdomen and pe lvis without contrast Start: 05-04-2022 Ultrasonography of abdomen Start: 03-15-2022 CT of abdomen and pe lvis without contrast Start: 01-06-2022 Plain X-ray of shoulder Measurement of occul t blood in stool specimen using immunoassay Dr. Cornelius Monteiro Work Phone: Ova OR parasites identification Ova OR parasites identification Urine culture Plan of Treatment Date Care Activity Detail Author Patient Education ED Kidney Stone w/ Coli c [facility] Work Phone: Patient referral [facility] Work Phone: Immunizations Immunization Date Immunization Notes Care Provider Amy sarah 06-17-2021 Covid (Moderna) [facility] 10-16-2020 Covid ([facility]) [facility] 09-18-2020 Covid ([facility]) [facility] Payers Date Payer Category Payer Medicare [id number] [place] [id number] 2024 Self-pay [id number] 2016 Unknown [id number] Unknown [id number] [id number] Unknown [id number] Unknown [id number] [id number] [id number] Unknown [id number] [id number] [id number] Unknown [id number] [id number] [id number] Social History Date Type Detail Facility Start: 11-25-2020 End: 03-15-2022 Tobacco smoking status NHIS Unknown if ever smoked [facility] Start: 11-25-2020 Non-smoker [facility] Start: 1955 Sex Assigned At Male [facility] Start: 03-15-2022 Tobacco smoking stat us NHIS Never smoked tobacco (finding) [facility] Evaluation note Note Date & Type Note Facility Evaluation note No assessment information availa ble [facility] Work Phone: Reason for referral (narrative) Note Date & Type Note Facility Reason for referral (narrative) No reason for referral information available [facility] Work Phone: Chief Complaint and Reason for Visit Chief Complaint E ORDER Chief Complaint complaint Chief Complaint complaint ABNORMAL FECES ABDOMINAL PAIN Chief Complaint ABNORMAL FECES ABDOMINAL PAIN PRE PROCEDURAL/LABWORK SCANNED RENAL CALCULI Chief Complaint ABNORMAL FECES ABDOMINAL PAIN PRE PROCEDURAL/LABWORK SCANNED PREOP RENAL CALCULI Chief Complaint PRE PROCEDURAL/LABWO RK SCANNED PREOP RENAL CALCULI LABS AND STOOL Chief Complaint EORDER Family History No Family History Records Found Relationship Condition Age at Onset Recorded Date/T leah father Diabetes mellitus Unknown Malignant neoplasm Unknown mother Coronary artery disease Unknown brother Malignant neoplasm Unknown Advance Directives No Advanced Directives Records Found Advance Directive Response Recorded Date/ Time Living Will No November 25, 2020 7 :30am Power of Investment Banker No November 25, 2020 7:30am Advance Directive Response Recorded Date/ Time Living Will No March 15, 2022 3:14am Power of Investment Banker No March 3:14am Advance Directive Response Recorded Date/ Time Living Will No March 15, 2022 2:14am Power of Investment Banker No March 2:14am Summary Purpose Additional Source Comments Goals (unrecognized section and content) Goals may be documented in a n alternate sectionGoals may be documented in an alternate sectionGoals may be documented in an alternate sectionGoals may be documented in an alternate sectionGoals may be documented in an alternate sectionGoals may be documented in an alternate sectionGoals may be documented in an alternate sectionGoals may be documented in an alternate sectionGoals may be documented in an alternate sectionGoals may be documented in an alternate sectionGoals may be documented in an alternate sectionGoals may be documented in an alternate section Care Teams (unrecognized sec tion and content) Team Status: Active Member Role Status Dates Dr. Cornelius Monteiro MD Family Provider Active Dr. Cornelius Monteiro MD Primary Care Provider Activ e Team Status: Inactive Member Role Status Dates Dr. Cornelius Monteiro MD Primary Care Provider, Attending Provider, Referring Provider Active Team Status: Inactive Member Role Status Dates Dr. Cornelius Monteiro MD Primary Care Provider, Atte aling Provider Active Team Status: Inactive Member Role Status Dates Dr. Cornelius Monteiro MD Primary Care Provider Activ e Dr. Kody Palma MD Attending Provider, Referr ing Provider Active Team Status: Active Member Role Status Dates Dr. Cornelius Monteiro MD Primary Care Provider, Attending Provider, Referring Provider Active Dr. Kody Palma MD Other Provider Active Team Status: Active Member Role Status Dates Dr. Cornelius Monteiro MD Primary Care Provider Activ e Dr. Kody Palma MD Attending Provider Active Team Status: Inactive Member Role Status Dates Dr. Cornelius Monteiro MD Primary Care Provider, Attending Provider, Referring Provider Active Dr. Kody Palma MD Other Provider Active Team Status: Active Member Role Status Dates Dr. Cornelius Monteiro MD Primary Care Provider Activ e Dr. Tayler Pearl MD Attending Provider Activ e Dr. Kody Palma MD Referring Provider Active Team Status: Inactive Member Role Status Dates Dr. Cornelius Monteiro MD Primary Care Provider Activ e Dr. Kody Palma MD Attending Provider Active Team Status: Inactive Member Role Status Dates Dr. Cornelius Monteiro MD Primary Care Provider Activ e Dr. Lucho Conner MD Attending Provider, Referring Provider Active Team Status: Active Member Role Status Dates Dr. Perico Monteiro MD Family Provider Active Dr. Perico Monteiro MD Primary Care Provider Acti ve Team Status: Inactive Member Role Status Dates Dr. Perico Monteiro MD Primary Care Provider, Attending Provider, Referring Provider Active Team Status: Inactive Member Role Status Dates Dr. Perico Monteiro MD Primary Care Provider, Att ending Provider Active Team Status: Active Member Role Status Dates Dr. Perico Monteiro MD Primary Care Provider Acti ve Team Status: Inactive Member Role Status Dates Dr. Perico Monteiro MD Primary Care Provider Acti ve Start: November 28, 2024 End: November 28, 2024 Dr. Perico Monteiro MD Attending Provider Active Start: November 28, 2024 End: November 28, 2024 Dr. Perico Monteiro MD Referring Provider Active Start: November 28, 2024 End: November 28, 2024 Team Status: Active Member Role Status Dates Dr. Perico Monteiro MD Primary Care Provider Acti ve Start: November 30, 2024 Dr. Perico Monteiro MD Attending Provider Active Start: November 30, 2024 (unrecognized sect ion and content) No Status Records Found INFORMATION SOURCE (unrecogn ized section and content) DATE CREATED AUTHOR 12/04/2024 [facility] FOR RECORDS PERTAINING TO PATIENTS WHO ARE OR HAVE BEEN ENROLLED IN A CHEMICAL DEPENDENCY/SUBSTANCEABUSE PROGRAM, SOME INFORMATION MAY BE OMITTED. This clinical summary was aggregated from multiple sources. Caution should be exercised in using it in the provision of clinical care. This summary normalizes information from multiple sources, and as a consequence, information in this document may materially change the coding, format and clinical context of patient data. In addition, data may be omitted in some cases. CLINICAL DECISIONS SHOULD BE BASED ON THE PRIMARY CLINICAL RECORDS. [facility] provides no warranty or guarantee of the accuracy or completeness of information in this document.
--- NOTE | 2024-12-05 07:41 | MRI_ITS ---
PROCEDURE: UPPER EXT JOINT ONLY(ROUTINE) 12/05/2024 REASON FOR EXAM: L SHOULDER. BICEPS TENDONITIS TECHNIQUE: MRI of the left upper Extremity. Multiplanar and multisequence images were obtained without IV contrast administration. FINDINGS: Mild/moderate supraspinatus and infraspinatus tendinopathy with a superimposed near full-thickness tear at the conjoined tendon critical zone measuring 6 mm in width. Mild subscapularis tendinopathy. Mild infraspinatus muscle atrophy. Diffuse flattening and increased attenuation of the intracapsular biceps tendon likely related to split tearing/tendinopathy. Extracapsular biceps tendon is intact. Mild biceps tenosynovitis. Glenohumeral alignment is within normal limits. No sizeable joint effusion. Mild edema along the inferior glenohumeral ligaments which can be seen with adhesive capsulitis. Tear of the posterosuperior labrum. No sizeable paralabral cysts. No focal full-thickness chondral defects. Moderate acromioclavicular joint osteoarthritis including capsular hypertrophy and a prominent inferior distal clavicular osteophyte measuring up to 7 mm abutting the supraspinatus myotendinous junction. Negative for fracture or marrow replacement. No significant fluid in the subacromial/subdeltoid bursa. MRI/Upper Ext Joint Only(Routine) IMPRESSION: 1. Supraspinatus and infraspinatus tendinopathy with superimposed near full-thi ckness tear at the conjoined tendon. Mild infraspinatus muscle atrophy. 2. Split tearing/tendinopathy of the intracapsular biceps tendon. 3. Tear of the posterosuperior labrum. 4. Moderate acromioclavicular joint osteoarthritis. Reading Location: [facility]
== END | disposition home or self-care (01) ==
PROVIDERS: PCP Family Medicine; Referring Provider Family Medicine; Visit Provider Family Medicine
DX: M75.22 Bicipital tendinitis, left shoulder (principal)
CPT/HCPCS: 73221

== ENCOUNTER → 2025-04-17 | Outpatient (CLI) | payer MEDICARE, OTHER, SELFPAY ==
[2025-04-17 15:41] LABS: AST(SGOT) 33 U/L (<=37); Alanine Aminotransfer ALT/SGPT 43 U/L (<=46); Albumin, Serum 4.2 g/dL (3.4-4.8); Alkaline Phosphatase 56 U/L (40-129); Anion Gap 10 (5-15); BUN 26 mg/dL (4-19); BUN/Creat Ratio 32.4 RATIO (10-20); Calcium,Total 9.2 mg/dL (7.6-11.0); Carbon Dioxide 28.2 mmol/L (21.0-32.0); Chloride 100 mmol/L (98-108); Globulin 2.6 g/dL (2.2-4.2); Glucose 127 mg/dL (70-99); Potassium 4.5 mmol/L (3.3-5.1)
[2025-04-17 15:50] LABS: Hematocrit 53.4 % (40-54); Hemoglobin 17.3 g/dL (13.0-16.5); Immature Granulocytes Count 0.080 X10^3/uL (0.0-0.0); Mean Corp Hgb Conc 32.4 g/dL (32-36); Mean Corpuscular Volume 91.9 fL (80-94); Mean Platelet Vol. 9.3 fl (6.2-12.0); NRBC Flagged by Analyzer 0 % (0-5); Platelet Count 254 K/mm3 (150-450); RBC Distribution Width CV 13.6 % (11.6-14.6); RBC Distribution Width SD 46.0 fl (35.1-43.9); Red Blood Count 5.81 M/mm3 (4.6-6.2); White Blood Count 8.8 K/mm3 (4.4-11.0)
[2025-04-19 05:07] LABS: Prealbumin 25 mg/dL (10-36)
== END | disposition home or self-care (01) ==
LOC: MFPLAB 12:24
PROVIDERS: PCP Family Medicine; Visit Provider Family Medicine
DX: R63.4 Abnormal weight loss (principal)
CPT/HCPCS: 36415; 80053; 84134; 84443; 85025; 85652

== ENCOUNTER → 2025-05-21 | Outpatient (CLI) | payer MEDICARE, OTHER, SELFPAY ==
--- NOTE | 2025-05-21 08:49 | EKG12_ITS ---
Test Reason : PREOP Blood Pressure : */* mmHG Vent. Rate : 91 BPM Atrial Rate : 91 BPM P-R Int : 194 ms QRS Dur : 132 ms QT Int : 392 ms P-R-T Axes : 70 -19 34 degrees QTcB Int : 482 ms Sinus rhythm with occasional Premature ventricular complexes and Possible Premature atrial complexes with Aberrant conduction Right bundle branch block Abnormal ECG Confirmed by GITA MALAVE, AUDREY ([id number]), material expeditor DALE HOLLIDAY ([id number]) on 05/22/2025 6:25:57 AM Referred By: Toni Harvey Confirmed By: AUDREY PELAYO MD
--- OUTSIDE RECORDS SUMMARY | 2025-05-21 09:28 | XMS RPT_ITS | CCD ---
Author Organization [facility] Care Team Providers Care Loop Tender Name Role Phone Dr. Cornelius Monteiro Primary Care Provider [phone] Dr. Tayler Pearl Attending Provider [phone] Dr. Kody Palma Referring Provider [phone] Thania MALAVE, Dr. River Primary Care Provider [...] / HYDROcodone bitartrate 5 mg oral tablet (17 sources) Opioid Agonist Start: 11-25-2020 take 1 tablet by mouth every six hours as needed Hydrocodone-Aceta minophen Active 1 TABLET PO EVERY 6 HOURS NEEDED 06 05November 25, 2020 Start: 12-06-2014 End: 07-12-2017 Hydrocodone-Acetaminophen [...] 12:00am 0.5 ml dulaglutide 3 mg/ml auto-injector (13 sources) GLP-1 Receptor Agonist Start: 03-15-2022 Dulaglutide (Trulicity) 1.5 mg/0.5 mL pen injector Active 1.5 mg SC EVERY WEEK March 15, 2022 12:00am gabapentin 300 mg oral capsule (15 sources) Anti-epileptic Agent Start: 09-13-2017 take 1 capsule by mouth three times daily Gabapentin 300 mg capsule Active 300 mg PO THREE TIMES A DAY September 13, 2017 12:00am Zikkubpt-Uled-Sqy8- C-David-Bosw (Osteo Bi-Flex Caplet) 1 EACH tablet (2 sources) Start: 09-19-2017 take 1 tablet by mouth twice daily Tccbphbn-Pzen-Np z7-T-Idop-Bosw (Osteo Bi-Flex Caplet) 1 EACH tablet Active 1 EACH PO TWICE A DAY September 19, 2017 12:00am ibuprofen 400 mg oral tablet (2 sources) Nonsteroidal Anti-inflammatory Drug Start: 09-19-2017 take 400 mg by mouth once daily Ibuprofen Active 400 MG PO DAILY September 19, 2017 12:00am ketorolac tromethamine 10 mg oral tablet (13 sources) Nonsteroidal Anti-inflammatory Drug, Cyclooxygenase Inhibitor Start: [...] 12:00am losartan potassium 25 mg oral tablet (15 sources) Angiotensin 2 Receptor Fredrick Start: 07-12-2017 take 1 tablet by mouth once daily Losartan 25 mg tablet Active 25 mg PO DAILY July 12, 2017 1:00am metFORMIN hydrochloride 500 mg oral tablet (15 sources) Biguanide Start: 12-06-2014 take 2 tablets [...] 12:00am tamsulosin hydrochloride 0.4 mg oral capsule (15 sources) alpha-Adrenergic Fredrick Start: 03-15-2022 take 1 [...] Onset: 12-03-2024 Chronic Diabetes mellitus without complication (15 sources) Diabetes mellitus; Translations: [Type 2 diabetes mellitus without complications] 03-15-2022 Chronic Essential hypertension (15 sources) Hypertensive disorder; Translations: [Essential (primary) hypertension] 03-15-2022 Chronic Other endocrine disorders (1 source) Testicular hypofunction; Translations: [Testicular hypofunction] Onset: 12-31-2024 Chronic Other nutritional; endocrine; and metabolic disorders (1 source) Abnormal weight loss; Translations: [Abnormal weight loss] Onset: 05-02-2025 Episodic Skin and subcutaneous tissue infections (15 sources) Cellulitis; Translations: [Cellulitis, unspecified] 10-27-2019 Episodic Urinary tract infections (15 sources) Acute urinary tract infection; Translations: [Urinary tract infection, site not specified] 11-25-2020 Episodic Past or Other Problems Problem Classification Problem Date Documented Da te Episodic/Chronic Other connective tissue disease (1 source) Bicipital tendinitis, left shoulder; Translations: [Bicipital tendinitis, left shoulder] Onset: 12-12-2024 Episodic Unclassified (14 sources) s/p right carpal tunnel release 01-27-2022 Comment on above: 09/21/17 Results Test Name Value Interpretation Reference Range Facility Prealbumin 13748se Prealbumin [Mass/Vol] 25 mg/dL Normal 10- [facility] Comment on above: Result Comment: Perf ormed at: - [facility] [address] [id number] Tactical Debriefer Officer: Lucho Sinha PhD, Phone: [phone] Performed By: #### L 583.9624, V682.5371, L147.5491, L100.0100 #### [facility] [address] [place], [address] CBC W/Diff, Automatedon 04-03 Absolute Lymph 2.95 X10 3/uL Normal 0.83-4.51 [facility] Comment on above: Order Comment: Order Date: 04/17/25 Order Info: 183-07 - CBCD Order Info: [id number] - SED Performed By: #### L 500.4050, L501.9520, L101.9900, L100.0100 #### [facility] [address] [place], [address] Absolute Neut 5.1 X10 3/uL Normal 2.0-7.7 [facility] Comment on above: Order Comment: Order Date: 04/17/25 Order Info: 183-07 - CBCD Order Info: [id number] - SED Performed By: #### L 500.4050, L501.9520, L101.9900, L100.0100 #### [facility] [address] [place], [address] Basophils/100 WBC (Bld) 0.7 % Normal 0-1 [facility] Comment on above: Order Comment: Order Date: 04/17/25 Order Info: 183-07 - CBCD Order Info: [id number] - SED Performed By: #### L 500.4050, L501.9520, L101.9900, L100.0100 #### [facility] [address] [place], [address] Eosinophils/100 WBC (Bld) 0.3 % Normal 0-5 [facility] Comment on above: Order Comment: Order Date: 04/17/25 Order Info: 183-07 - CBCD Order Info: [id number] - SED Performed By: #### L 500.4050, L501.9520, L101.9900, L100.0100 #### [facility] [address] [place], [address] Erythrocyte distribution width (RBC) [Ratio] 13.6 % Normal 11.6-14.6 [facility] Comment on above: Order Comment: Order Date: 04/17/25 Order Info: 183-07 - CBCD Order Info: [id number] - SED Performed By: #### L 500.4050, L501.9520, L101.9900, L100.0100 #### [facility] [address] [place], [address] Hematocrit (Bld) [Volume fraction] 53.4 % Normal 40-54 [facility] Comment on above: Order Comment: Order Date: 04/17/25 Order Info: 183-07 - CBCD Order Info: [id number] - SED Performed By: #### L 500.4050, L501.9520, L101.9900, L100.0100 #### [facility] [address] [place], [address] Hemoglobin (Bld) [Mass/Vol] 17.3 g/dL High 13.0-16.5 [facility] Comment on above: Order Comment: Order Date: 04/17/25 Order Info: 183-07 - CBCD Order Info: - SED Performed By: #### L 500.4050, L501.9520, L101.9900, L100.0100 #### [facility] [address] [place], [address] IG% 0.900 Normal 0.0-0.9 [facility] Comment on above: Order Comment: Order Date: 04/17/25 Order Info: 183-07 - CBCD Order Info: [id number] - SED Result Comment: IG% - Immature Granulocytes (promyelocytes, myelocytes and metamyelocytes) > 1% indicates that a LEFT SHIFT is Present. Performed By: #### L 500.4050, L501.9520, L101.9900, L100.0100 #### [facility] [address] [place], [address] Lymphocytes/100 WBC (Bld) 33.5 % Normal 19-41 [facility] Comment on above: Order Comment: Order Date: 04/17/25 Order Info: 183-07 - CBCD Order Info: 98523-8 - SED Performed By: #### L 500.4050, L501.9520, L101.9900, L100.0100 #### [facility] [address] [place], [address] MCH (RBC) [Entitic mass] 29.8 pg Normal 27.0-32.0 [facility] Comment on above: Order Comment: Order Date: 04/17/25 Order Info: 183-07 - CBCD Order Info: 54770-1 - SED Performed By: #### L 500.4050, L501.9520, L101.9900, L100.0100 #### [facility] [address] [place], [address] MCHC (RBC) [Mass/Vol] 32.4 g/dL Normal 32-36 [facility] Comment on above: Order Comment: Order Date: 04/17/25 Order Info: 183-07 - CBCD Order Info: 75362-1 - SED Performed By: #### L 500.4050, L501.9520, L101.9900, L100.0100 #### [facility] [address] [place], [address] MCV (RBC) [Entitic vol] 91.9 fL Normal 80-94 [facility] Comment on above: Order Comment: Order Date: 04/17/25 Order Info: 183-07 - CBCD Order Info: 03235-6 - SED Performed By: #### L 500.4050, L501.9520, L101.9900, L100.0100 #### [facility] [address] [place], [address] Monocytes/100 WBC (Bld) 7.0 % Normal 0-10 [facility] Comment on above: Order Comment: Order Date: 04/17/25 Order Info: 183-07 - CBCD Order Info: [id number] - SED Performed By: #### L 500.4050, L501.9520, L101.9900, L100.0100 #### [facility] [address] [place], [address] Neutrophils/100 WBC (Bld) 57.6 % Normal 47-70 [facility] Comment on above: Order Comment: Order Date: 04/17/25 Order Info: 183-1 - CBCD Order Info: 23540-9 - SED Performed By: #### L 500.4050, L501.9520, L101.9900, L100.0100 #### [facility] [address] [place], [address] Nucleated RBC (Bld) [#/Vol] 0 10*3/uL Normal 0-5 [facility] Comment on above: Order Comment: Order Date: 04/17/25 Order Info: 183- - CBCD Order Info: [id number] - SED Performed By: #### L 500.4050, L501.9520, L101.9900, L100.0100 #### [facility] [address] [place], [address] Platelet mean volume (Bld) [Entitic vol] 9.3 fL Normal 6.2-12.0 [facility] Comment on above: Order Comment: Order Date: 04/17/25 Order Info: [id number] - CBCD Order Info: 15175-2 - SED Performed By: #### L 500.4050, L501.9520, L101.9900, L100.0100 #### [facility] [address] [place], [address] Platelets (Bld) [#/Vol] 254 10*3/uL Normal 150-450 [facility] Comment on above: Order Comment: Order Date: 04/17/25 Order Info: 018- - CBCD Order Info: 97583-8 - SED Performed By: #### L 500.4050, L501.9520, L101.9900, L100.0100 #### [facility] [address] [place], [address] RBC (Bld) [#/Vol] 5.81 10*6/uL Normal 4.6-6.2 [facility] Comment on above: Order Comment: Order Date: 04/17/25 Order Info: 018- - CBCD Order Info: 03004-5 - SED Performed By: #### L 500.4050, L501.9520, L101.9900, L100.0100 #### [facility] [address] [place], [address] RDW SD 46.0 fl High 35.1-43.9 [facility] Comment on above: Order Comment: Order Date: 04/17/25 Order Info: 0184- - CBCD Order Info: [id number] - SED Performed By: #### L 500.4050, L501.9520, L101.9900, L100.0100 #### [facility] [address] [place], [place], [address] WBC (Bld) [#/Vol] 8.8 10*3/uL Normal 4.4-11.0 [facility] Comment on above: Order Comment: Order Date: 04/17/25 Order Info: 0184- - CBCD Order Info: 80028-3 - SED Performed By: #### L 500.4050, L501.9520, L101.9900, L100.0100 #### [facility] [address] [place], [place], [address] Comprehensive Metabolic Prof [facility] 04-17-2025 Albumin [Mass/Vol] 4.2 g/dL Normal 3.4-4.8 [facility] Comment on above: Order Comment: Order Date: 04/17/25 Order Info: 0786-1 - CMP Order Info: 3016-3 - TSH Performed By: #### L 500.4050, L501.9520, L101.9900, L100.0100 #### [facility] [address] [place], [place], [address] Albumin/Globulin [Mass ratio] 1.6 {ratio} Normal 0.9-2.4 [facility] Comment on above: Order Comment: Order Date: 04/17/25 Order Info: 0786-1 - CMP Order Info: 3015-3 - TSH Performed By: #### L 500.4050, L501.9520, L101.9900, L100.0100 #### [facility] [address] [place], [address] ALK PHOS 56 U/L Normal 40-129 [facility] Comment on above: Order Comment: Order Date: 04/17/25 Order Info: 0786-1 - CMP Order Info: 3015-3 - TSH Performed By: #### L 500.4050, L501.9520, L101.9900, L100.0100 #### [facility] [address] [place], [address] ALT [Catalytic activity/Vol] 43 U/L Normal <=46 [facility] Comment on above: Order Comment: Order Date: 04/17/25 Order Info: 0786-1 - CMP Order Info: 3015-3 - TSH Performed By: #### L 500.4050, L501.9520, L101.9900, L100.0100 #### [facility] [address] [place], [address] AST [Catalytic activity/Vol] 33 U/L Normal <=37 [facility] Comment on above: Order Comment: Order Date: 04/17/25 Order Info: 0786-1 - CMP Order Info: 301-3 - TSH Performed By: #### L 500.4050, L501.9520, L101.9900, L100.0100 #### [facility] [address] [place], [address] Bilirubin [Mass/Vol] 0.57 mg/dL Normal 0.00-1.30 [facility] Comment on above: Order Comment: Order Date: 04/17/25 Order Info: 0786-1 - CMP Order Info: 301-3 - TSH Performed By: #### L 500.4050, L501.9520, L101.9900, L100.0100 #### [facility] [address] [place], [address] BUN/CRE 32.4 RATIO High 10-20 [facility] Comment on above: Order Comment: Order Date: 04/17/25 Order Info: 0786-1 - CMP Order Info: 3 - TSH Performed By: #### L 500.4050, L501.9520, L101.9900, L100.0100 #### [facility] [address] [place], [address] Calcium [Mass/Vol] 9.2 mg/dL Normal 7.6-11.0 [facility] Comment on above: Order Comment: Order Date: 04/17/25 Order Info: 0786-1 - CMP Order Info: 3 - TSH Performed By: #### L 500.4050, L501.9520, L101.9900, L100.0100 #### [facility] [address] [place], [address] Chloride [Moles/Vol] 100 mmol/L Normal 98-108 [facility] Comment on above: Order Comment: Order Date: 04/17/25 Order Info: 0786- - CMP Order Info: 3 - TSH Performed By: #### L 500.4050, L501.9520, L101.9900, L100.0100 #### [facility] [address] [place], [address] CO2 [Moles/Vol] 28.2 mmol/L Normal 21.0-32.0 [facility] Comment on above: Order Comment: Order Date: 04/17/25 Order Info: 0786-1 - CMP Order Info: 3 - TSH Performed By: #### L 500.4050, L501.9520, L101.9900, L100.0100 #### [facility] [address] [place], [address] Creatinine [Mass/Vol] 0.81 mg/dL Normal 0.70-1.20 [facility] Comment on above: Order Comment: Order Date: 04/17/25 Order Info: 0786-1 - CMP Order Info: 3 - TSH Performed By: #### L 500.4050, L501.9520, L101.9900, L100.0100 #### [facility] [address] [place], [address] GAP 10 Normal 5-15 [facility] Comment on above: Order Comment: Order Date: 04/17/25 Order Info: 0786 - CMP Order Info: 3015-09 - TSH Performed By: #### L 500.4050, L501.9520, L101.9900, L100.0100 #### [facility] [address] [place] [place], [address] GFR/1.73 sq M.predicted among non-blacks MDRD (S/P/Bld) [Vol rate/Area] 96 mL/min/{1.73_m2} Normal >60 [facility] Comment on above: Order Comment: Order Date: 04/17/25 Order Info: 0786-1 - CMP Order Info: 3015-09 - TSH Result Comment: mL/m in/1.73m2 CKD-EPI Creatinine Equation (2020) Performed By: #### L 500.4050, L501.9520, L101.9900, L100.0100 #### [facility] [address] [place], [address] Globulin (S) [Mass/Vol] 2.6 g/dL Normal 2.2-4.2 [facility] Comment on above: Order Comment: Order Date: 04/17/25 Order Info: 0786-1 - CMP Order Info: 3 - TSH Performed By: #### L 500.4050, L501.9520, L101.9900, L100.0100 #### [facility] [address] [place], [address] Glucose [Mass/Vol] 127 mg/dL High 70-99 [facility] Comment on above: Order Comment: Order Date: 04/17/25 Order Info: 0786- - [facility] Order Info: 3015-09 - TSH Performed By: #### L 500.4050, L501.9520, L101.9900, L100.0100 #### [facility] [address] [place], [address] Potassium [Moles/Vol] 4.5 mmol/L Normal 3.3-5.1 [facility] Comment on above: Order Comment: Order Date: 04/17/25 Order Info: 0786- - [facility] Order Info: 3015-09 - TSH Performed By: #### L 500.4050, L501.9520, L101.9900, L100.0100 #### [facility] [address] [place], [address] Sodium [Moles/Vol] 138 mmol/L Normal 133-145 [facility] Comment on above: Order Comment: Order Date: 04/17/25 Order Info: 0786- - [facility] Order Info: 3015-09 - TSH Performed By: #### L 500.4050, L501.9520, L101.9900, L100.0100 #### [facility] [address] [place], [address] T PROT 6.8 g/dL Normal 5.9-8.4 [facility] Comment on above: Order Comment: Order Date: 04/17/25 Order Info: 0786- - [facility] Order Info: 3015-09 - TSH Performed By: #### L 500.4050, L501.9520, L101.9900, L100.0100 #### [facility] [address] [place], [address] Urea nitrogen [Mass/Vol] 26 mg/dL High 4-19 [facility] Comment on above: Order Comment: Order Date: 04/17/25 Order Info: 0786-1 - CMP Order Info: 3016-3 - TSH Performed By: #### L 500.4050, L501.9520, L101.9900, L100.0100 #### [facility] [address] [place], [place], [address] Erythrocyte Sed Rateon 04-17 SED RATE 3 mm/hr Normal 0-20 [facility] Comment on above: Order Comment: Order Date: 04/17/25 Order Info: 0184-1 - CBCD Order Info: 18726-0 - SED Performed By: #### L 500.4050, L501.9520, L101.9900, L100.0100 #### [facility] [address] [place], [place], [address] Thyroid Stim Hormone (TSH)on 04-17-2025 TSH 0.970 uIU/mL Normal 0.300-4.200 [facility] Comment on above: Order Comment: Order Date: 04/17/25 Order Info: 0786-1 - CMP Order Info: 3016-3 - TSH Performed By: #### L 500.4050, L501.9520, L101.9900, L100.0100 #### [facility] [address] [place], [place], [address] Magnetic resonance imaging r eportOrdered By: Aman Montero on 12-07-2024 Study report [facility] [address] [place], [place] [address] Upper Ext Joint Only(Routine) MR#: [id number] Acct: [id number] Name: ELLENALEJANDRO [place] Rep #: [id number] : 1955 M 69 From: Juan Ramon Montero DO PCP: Dr. Perico Monteiro MD Status: REG CLI Study:Upper Ext Joint Only(Routine) Date of Exam: 12/05/24 Exam# [id number] Ordering Dr: Israel Monteiro MD ADDENDUM by Dr. Aman Montero DO on 12/07/24 at 2314 5. Edema along the inferior glenohumeral ligaments which can be seen with adhesive capsulitis. Please correlate. Reading Location: [facility] 12/07/24 2314 Date cc: Dr. Perico Monteiro MD ~* Signed PROCEDURE: UPPER EXT JOINT ONLY(ROUTINE) 12/05/2024 REASON FOR EXAM: L SHOULDER. BICEPS TENDONITIS TECHNIQUE: MRI of the left upper Extremity. Multiplanar and multisequence images were obtained without IV contrast administration. FINDINGS: Mild/moderate supraspinatus and infraspinatus tendinopathy with a superimposed near full-thickness tear at the conjoined tendon critical zone measuring 6 mm in width. Mild subscapularis tendinopathy. Mild infraspinatus muscle atrophy. Diffuse flattening and increased attenuation of the intracapsular biceps tendon likely related to split tearing/tendinopathy. Extracapsular biceps tendon is intact. Mild biceps tenosynovitis. Glenohumeral alignment is within normal limits. No sizeable joint effusion. Mild edema along the inferior glenohumeral ligaments which can be seen with adhesive capsulitis. Tear of the posterosuperior labrum. No sizeable paralabral cysts. No focal full-thickness chondral defects. Moderate acromioclavicular joint osteoarthritis including capsular hypertrophy and a prominent inferior distal clavicular osteophyte measuring up to 7 mm abutting the supraspinatus myotendinous junction. Negative for fracture or marrow replacement. No significant fluid in the subacromial/subdeltoi d bursa. MRI/Upper Ext Joint Only(Routine) IMPRESSION: 1. Supraspinatus and infraspinatus tendinopathy with superimposed near full-thickness tear at the conjoined tendon. Mild infraspinatus muscle atrophy. 2. Split tearing/tendinopathy of the intracapsular biceps tendon. 3. Tear of the posterosuperior labrum. 4. Moderate acromioclavicular joint osteoarthritis. Reading Location: [facility] CC: Dr. Perico Monteiro MD ~ Roller Pneumatic: Signed [facility] Upper Ext Joint Only(Routine )on 12-05-2024 Upper Ext Joint Only(Routine) [facility] [address] [place], [place] [address] Upper Ext Joint Only(Routine) MR#: [id number] Acct: [id number] Name: ALEJANDRO JEFFRIES Rep #: [id number] : 1955 M 69 From: Aman Reynolds PCP: Dr. Perico Monteiro MD Status: REG CLI Study: Upper Ext Joint Only(Routine) Date of Exam: 0 12/05/24 Exam# [id number] Ordering Dr: Perico Monteiro ADDENDUM by Dr. Aman Montero DO on 12/07/24 at 2314 5. Edema along the inferior glenohumeral ligaments which can be seen with adhesive capsulitis. Please correlate. Reading Location: [facility] 12/07/24 2314 Date cc: Dr. Perico Monteiro MD * Signed PROCEDURE: UPPER EXT JOINT ONLY(ROUTINE) 12/05/2024 REASON FOR EXAM: L SHOULDER. BICEPS TENDONITIS TECHNIQUE: MRI of the left upper Extremity. Multiplanar and multisequence images were obtained without IV contrast administration. FINDINGS: Mild/moderate supraspinatus and infraspinatus tendinopathy with a superimposed near full-thickness tear at the conjoined tendon critical zone measuring 6 mm in width. Mild subscapularis tendinopathy. Mild infraspinatus muscle atrophy. Diffuse flattening and increased attenuation of the intracapsular biceps tendon likely related to split tearing/tendinopathy. Extracapsular biceps tendon is intact. Mild biceps tenosynovitis. Glenohumeral alignment is within normal limits. No sizeable joint effusion. Mild edema along the inferior glenohumeral ligaments which can be seen with adhesive capsulitis. Tear of the posterosuperior labrum. No sizeable paralabral cysts. No focal full-thickness chondral defects. Moderate acromioclavicular joint osteoarthritis including capsular hypertrophy and a prominent inferior distal clavicular osteophyte measuring up to 7 mm abutting the supraspinatus myotendinous junction. Negative for fracture or marrow replacement. No significant fluid in the subacromial/subdeltoi d bursa. MRI/Upper Ext Joint Only(Routine) IMPRESSION: 1. Supraspinatus and infraspinatus tendinopathy with superimposed near full-thickness tear at the conjoined tendon. Mild infraspinatus muscle atrophy. 2. Split tearing/tendinopathy of the intracapsular biceps tendon. 3. Tear of the posterosuperior labrum. 4. Moderate acromioclavicular joint osteoarthritis. [facility] CC: Dr. Perico Monteiro MD Roller Pneumatic: Signed Normal [facility] Anion gap in Serum or Plasma Ordered By: Perico Monteiro on 11-30-2024 Anion gap [Moles/Vol] 9 mmol/L - [facility] BUN/creatinine ratioOrdered By: Perico Monteiro on 11-30-2024 Urea nitrogen/Creatinine [Mass ratio] 21.6 mg/mg High 10- [facility] Bilirubin, totalOrdered By: Perico Monteiro on 11-30-2024 Bilirubin [Mass/Vol] 0.57 mg/dL 0.00-1.30 [facility] CBC-Complete Blood Cnt No Di ffon 11-30-2024 Erythrocyte distribution width (RBC) [Ratio] 13.4 % Normal 11.6-14.6 [facility] Comment on above: Order Comment: Order Date: 04/17/25 Order Info: 0786-1 - CMP Order Info: 3016-3 - TSH Performed By: #### L 500.4050, L501.9520, L101.9900, L100.0100 #### [facility] [address] [place], [address] Hematocrit (Bld) [Volume fraction] 48.4 % Normal 40-54 [facility] Comment on above: Order Comment: Order Date: 04/17/25 Order Info: 0786-1 - CMP Order Info: 3 - TSH Performed By: #### L 500.4050, L501.9520, L101.9900, L100.0100 #### [facility] [address] [place], [address] Hemoglobin (Bld) [Mass/Vol] 16.0 g/dL Normal 13.0-16.5 [facility] Comment on above: Order Comment: Order Date: 04/17/25 Order Info: 0786-1 - CMP Order Info: 3015-09 - TSH Performed By: #### L 500.4050, L501.9520, L101.9900, L100.0100 #### [facility] [address] [place], [address] MCH (RBC) [Entitic mass] 30.9 pg Normal 27.0-32.0 [facility] Comment on above: Order Comment: Order Date: 04/17/25 Order Info: 0786- - CMP Order Info: 3015-09 - TSH Performed By: #### L 500.4050, L501.9520, L101.9900, L100.0100 #### [facility] [address] [place], [address] MCHC (RBC) [Mass/Vol] 33.1 g/dL Normal 32-36 [facility] Comment on above: Order Comment: Order Date: 04/17/25 Order Info: 0786- - CMP Order Info: 3015-09 - TSH Performed By: #### L 500.4050, L501.9520, L101.9900, L100.0100 #### [facility] [address] [place], [address] MCV (RBC) [Entitic vol] 93.6 fL Normal 80-94 [facility] Comment on above: Order Comment: Order Date: 04/17/25 Order Info: 0786-1 - CMP Order Info: 3016-3 - TSH Performed By: #### L 500.4050, L501.9520, L101.9900, L100.0100 #### [facility] [address] [place], [address] Platelet mean volume (Bld) [Entitic vol] 9.8 fL Normal 6.2-12.0 [facility] Comment on above: Order Comment: Order Date: 04/17/25 Order Info: 0786-1 - CMP Order Info: 3015-09 - TSH Performed By: #### L 500.4050, L501.9520, L101.9900, L100.0100 #### [facility] [address] [place], [address] Platelets (Bld) [#/Vol] 181 10*3/uL Normal 150-450 [facility] Comment on above: Order Comment: Order Date: 04/17/25 Order Info: 0786-1 - CMP Order Info: 3015-09 - TSH Performed By: #### L 500.4050, L501.9520, L101.9900, L100.0100 #### [facility] [address] [place], [address] RBC (Bld) [#/Vol] 5.17 10*6/uL Normal 4.6-6.2 [facility] Comment on above: Order Comment: Order Date: 04/17/25 Order Info: 0786-1 - CMP Order Info: 3015-09 - TSH Performed By: #### L 500.4050, L501.9520, L101.9900, L100.0100 #### [facility] [address] [place], [address] RDW SD 45.9 fl High 35.1-43.9 [facility] Comment on above: Order Comment: Order Date: 04/17/25 Order Info: 0786-1 - CMP Order Info: 3 - TSH Performed By: #### L 500.4050, L501.9520, L101.9900, L100.0100 #### [facility] [address] [place], [address] WBC (Bld) [#/Vol] 6.5 10*3/uL Normal 4.4-11.0 [facility] Comment on above: Order Comment: Order Date: 04/17/25 Order Info: 0786-1 - CMP Order Info: 3 - TSH Performed By: #### L 500.4050, L501.9520, L101.9900, L100.0100 #### [facility] [address] [place], [address] Calculated very low density lipoprotein (VLDL) cholesterol measurementOrdered By: Perico Monteiro on 11-30-2024 Calculated very low density lipoprotein (VLDL) cholesterol measurement 27 mg/dL 5-40 [facility] Carbon dioxide, total [Moles /volume] in Central venous bloodOrdered By: Perico Monteiro on 11-30-2024 CO2 [Moles/Vol] 25.0 mmol/L 21.0-32.0 [facility] Chloride assayOrdered By: Kvng Monteiro on 11-30-2024 Chloride [Moles/Vol] 104 mmol/L 98-108 [facility] Comprehensive Metabolic Prof ilon 11-30-2024 Albumin [Mass/Vol] 4.1 g/dL Normal 3.4-4.8 [facility] Comment on above: Order Comment: Order Date: 04/17/25 Order Info: 0786-1 - CMP Order Info: 30112-04 - TSH Performed By: #### L 500.4050, L501.9520, L101.9900, L100.0100 #### [facility] [address] [place], [address] Albumin/Globulin [Mass ratio] 1.5 {ratio} Normal 0.9-2.4 [facility] Comment on above: Order Comment: Order Date: 04/17/25 Order Info: 0786-1 - CMP Order Info: 30112-04 - TSH Performed By: #### L 500.4050, L501.9520, L101.9900, L100.0100 #### [facility] [address] [place], [address] ALK PHOS 54 U/L Normal 40-129 [facility] Comment on above: Order Comment: Order Date: 04/17/25 Order Info: 07 - [facility] Order Info: 3015-09 - TSH Performed By: #### L 500.4050, L501.9520, L101.9900, L100.0100 #### [facility] [address] [place], [address] ALT [Catalytic activity/Vol] 24 U/L Normal <=46 [facility] Comment on above: Order Comment: Order Date: 04/17/25 Order Info: 785-07 - [facility] Order Info: 3015-09 - TSH Performed By: #### L 500.4050, L501.9520, L101.9900, L100.0100 #### [facility] [address] [place], [address] AST [Catalytic activity/Vol] 28 U/L Normal <=37 [facility] Comment on above: Order Comment: Order Date: 04/17/25 Order Info: 0786 - [facility] Order Info: 3015-09 - TSH Performed By: #### L 500.4050, L501.9520, L101.9900, L100.0100 #### [facility] [address] [place], [address] Bilirubin [Mass/Vol] 0.57 mg/dL Normal 0.00-1.30 [facility] Comment on above: Order Comment: Order Date: 04/17/25 Order Info: 0786 - [facility] Order Info: 3015-09 - TSH Performed By: #### L 500.4050, L501.9520, L101.9900, L100.0100 #### [facility] [address] [place], [address] BUN/CRE 21.6 RATIO High 10-20 [facility] Comment on above: Order Comment: Order Date: 04/17/25 Order Info: 0786-1 - CMP Order Info: 3 - TSH Performed By: #### L 500.4050, L501.9520, L101.9900, L100.0100 #### [facility] [address] [place], [address] Calcium [Mass/Vol] 8.8 mg/dL Normal 7.6-11.0 [facility] Comment on above: Order Comment: Order Date: 04/17/25 Order Info: 0786- - CMP Order Info: 3 - TSH Performed By: #### L 500.4050, L501.9520, L101.9900, L100.0100 #### [facility] [address] [place], [address] Chloride [Moles/Vol] 104 mmol/L Normal 98-108 [facility] Comment on above: Order Comment: Order Date: 04/17/25 Order Info: 0786-1 - CMP Order Info: 3015-09 - TSH Performed By: #### L 500.4050, L501.9520, L101.9900, L100.0100 #### [facility] [address] [place], [address] CO2 [Moles/Vol] 25.0 mmol/L Normal 21.0-32.0 [facility] Comment on above: Order Comment: Order Date: 04/17/25 Order Info: 0786-1 - CMP Order Info: 3013 - TSH Performed By: #### L 500.4050, L501.9520, L101.9900, L100.0100 #### [facility] [address] [place], [address] Creatinine [Mass/Vol] 0.86 mg/dL Normal 0.70-1.20 [facility] Comment on above: Order Comment: Order Date: 04/17/25 Order Info: 0786-1 - CMP Order Info: 3 - TSH Performed By: #### L 500.4050, L501.9520, L101.9900, L100.0100 #### [facility] [address] [place], [address] GAP 9 Normal 5-15 [facility] Comment on above: Order Comment: Order Date: 04/17/25 Order Info: 0786-1 - CMP Order Info: 3 - TSH Performed By: #### L 500.4050, L501.9520, L101.9900, L100.0100 #### [facility] [address] [place], [address] GFR/1.73 sq M.predicted among non-blacks MDRD (S/P/Bld) [Vol rate/Area] 94 mL/min/{1.73_m2} Normal >60 [facility] Comment on above: Order Comment: Order Date: 04/17/25 Order Info: 0786-1 - [facility] Order Info: 3 - TSH Result Comment: mL/m in/1.73m2 CKD-EPI Creatinine Equation (2020) Performed By: #### L 500.4050, L501.9520, L101.9900, L100.0100 #### [facility] [address] [place], [address] Globulin (S) [Mass/Vol] 2.7 g/dL Normal 2.2-4.2 [facility] Comment on above: Order Comment: Order Date: 04/17/25 Order Info: 0786-1 - [facility] Order Info: 301-3 - TSH Performed By: #### L 500.4050, L501.9520, L101.9900, L100.0100 #### [facility] [address] [place], [address] Glucose [Mass/Vol] 116 mg/dL High 70-99 [facility] Comment on above: Order Comment: Order Date: 04/17/25 Order Info: 0786-1 - CMP Order Info: 3015-3 - TSH Performed By: #### L 500.4050, L501.9520, L101.9900, L100.0100 #### [facility] [address] [place], [address] Potassium [Moles/Vol] 4.4 mmol/L Normal 3.3-5.1 [facility] Comment on above: Order Comment: Order Date: 04/17/25 Order Info: 0786-1 - CMP Order Info: 3 - TSH Performed By: #### L 500.4050, L501.9520, L101.9900, L100.0100 #### [facility] [address] [place], [address] Sodium [Moles/Vol] 138 mmol/L Normal 133-145 [facility] Comment on above: Order Comment: Order Date: 04/17/25 Order Info: 0786-1 - CMP Order Info: 3015-3 - TSH Performed By: #### L 500.4050, L501.9520, L101.9900, L100.0100 #### [facility] [address] [place], [address] T PROT 6.8 g/dL Normal 5.9-8.4 [facility] Comment on above: Order Comment: Order Date: 04/17/25 Order Info: 0786-1 - CMP Order Info: 3 - TSH Performed By: #### L 500.4050, L501.9520, L101.9900, L100.0100 #### [facility] [address] [place], [address] Urea nitrogen [Mass/Vol] 19 mg/dL Normal 4-19 [facility] Comment on above: Order Comment: Order Date: 04/17/25 Order Info: 0786-1 - CMP Order Info: 301-3 - TSH Performed By: #### L 500.4050, L501.9520, L101.9900, L100.0100 #### [facility] [address] [place], [place], [address] Erythrocyte distribution wid th ratioOrdered By: Perico Monteiro on 11-30-2024 Erythrocyte distribution width (RBC) [Ratio] 13.4 % 11.6-14.6 [facility] Erythrocyte distribution wid th standard deviationOrdered By: Perico Monteiro on 11-30-2024 Erythrocyte distribution width (RBC) [Ratio] 45.9 fl High 35.1-43.9 [facility] Glomerular filtration rate ( GFR) estimation/1.73 sq m using serum, plasma, or whole bOrdered By: Perico Monteiro on 11-30-2024 GFR/1.73 sq M.predicted among non-blacks MDRD (S/P/Bld) [Vol rate/Area] 94 mL/min/{1.73_m2} >60 [facility] Comment on above: mL/min/1.73m2 CKD-EP I Creatinine Equation (2020) Hematocrit Auto (Bld) [Volum e fraction]Ordered By: Perico Monteiro on 11-30-2024 Hematocrit (Bld) [Volume fraction] 48.4 % 40-54 [facility] Hemoglobin measurementOrdere d By: Deonroper hospitalkelly Monteiro on 11-30-2024 Hemoglobin (Bld) [Mass/Vol] 16.0 g/dL 13.0-16.5 [facility] L509.3001on 11-30-2024 Testosterone [Mass/Vol] 207.00 ng/dL Low 300-720 [facility] Comment on above: Order Comment: PER P T-NOT DOING URINE TEST Order Date: 11/28/24 Order Info: 0786-1 - CMP Order Info: 00984-9 - LIPID Order Info: 2857-1 - PSA Performed By: #### L 509.3001 #### [facility] [address] [place], [place], [address] LDL calc ser/plasOrdered By: Perico Monteiro on 11-30-2024 Cholesterol in LDL [Mass/Vol] 43 mg/dL [facility] Comment on above: Giyulejaxc=588-673 m g/dL & Higher Rrtd=733 mg/dL or greater Laboratory - Chemistry and C hemistry - challengeOrdered By: Perico Monteiro on 11-30-2024 AST [Catalytic activity/Vol] 28 U/L <38 [facility] Testosterone [Mass/Vol] 207.00 ng/dL Low 300-720 [facility] Lipid Profileon 11-30-2024 CHOL:HDL 3.15 Normal [facility] Comment on above: Order Comment: Order Date: 04/17/25 Order Info: 0786-1 - CMP Order Info: 3013 - TSH Performed By: #### L 500.4050, L501.9520, L101.9900, L100.0100 #### [facility] [address] [place], [address] Cholesterol [Mass/Vol] 103 mg/dL Normal <=200 [facility] Comment on above: Order Comment: Order Date: 04/17/25 Order Info: 0786-1 - CMP Order Info: 3016-3 - TSH Result Comment: Chol esterol level, Desirable <200 mg/dL Borderline high cholesterol 200-239 mg/dL High cholesterol >=240 mg/dL Recommendations of the NCEP Adult Treatment Panel for the following risk-cutoff thresholds for the [place] population. Performed By: #### L 500.4050, L501.9520, L101.9900, L100.0100 #### [facility] [address] [place], [address] Cholesterol in HDL [Mass/Vol] 33 mg/dL Low [facility] Comment on above: Order Comment: Order Date: 04/17/25 Order Info: 0786-1 - CMP Order Info: 3016-3 - TSH Result Comment: Laurie onal Cholesterol Education Program (NCEP) guidelines: <40 mg/dL: Low HDL-cholesterol (major risk factor for CHD) >= 60 mg/dL: High HDL-cholesterol (negative risk factor for CHD) HDL-cholesterol is affected by a number of factors, e.g. smoking, exercise, hormones, sex and age. Performed By: #### L 500.4050, L501.9520, L101.9900, L100.0100 #### [facility] [address] [place], [address] Cholesterol in LDL [Mass/Vol] 43 mg/dL Normal [facility] Comment on above: Order Comment: Order Date: 04/17/25 Order Info: 0786-1 - CMP Order Info: 3015-3 - TSH Result Comment: Bord qpluhe=357-121 mg/dL Higher Tlsf=321 mg/dL or greater Performed By: #### L 500.4050, L501.9520, L101.9900, L100.0100 #### [facility] [address] [place], [address] Cholesterol in VLDL [Mass/Vol] 27 mg/dL Normal 5-40 [facility] Comment on above: Order Comment: Order Date: 04/17/25 Order Info: 0786-1 - CMP Order Info: 30112-04 - TSH Performed By: #### L 500.4050, L501.9520, L101.9900, L100.0100 #### [facility] [address] [place], [address] Triglyceride [Mass/Vol] 137 mg/dL Normal [facility] Comment on above: Order Comment: Order Date: 04/17/25 Order Info: 0786-1 - CMP Order Info: 3013 - TSH Result Comment: The drugs N-Acetylcysteine and Metamizole may falsely depress this assay. Normal range: <150 mg/dL Borderline High: 150-199 mg/dL High: 200-499 mg/dL Very High: >500 mg/dL Performed By: #### L 500.4050, L501.9520, L101.9900, L100.0100 #### [facility] [address] [place], [address] MCV (mean corpuscular volume ) determinationOrdered By: Perico Monteiro on 11-30-2024 MCV (RBC) [Entitic vol] 93.6 fL 80-94 [facility] Mean corpuscular hemoglobin (MCH) determinationOrdered By: Perico Monteiro on 11-30-2024 MCH (RBC) [Entitic mass] 30.9 pg 27.0-32.0 [facility] Mean corpuscular hemoglobin concentration (MCHC) determinationOrdered By: Perico Monteiro on 11-30-2024 MCHC (RBC) [Mass/Vol] 33.1 g/dL 32-36 [facility] Mean platelet volume determi nationOrdered By: Perico Monteiro on 11-30-2024 Platelet mean volume (Bld) [Entitic vol] 9.8 fL 6.2-12.0 [facility] PSA,Total - Annual Screenon 11-30-2024 PSA,TOT SCREEN 0.83 ng/mL Normal 0.02-4.00 [facility] Comment on above: Order Comment: Order Date: 04/17/25 Order Info: 0786-1 - CMP Order Info: 3016-3 - TSH Result Comment: This test was performed using the [employer] tPSA method. Measured values of a patient??sample can vary depending on the testing procedure used. PSA values determined on patient samples by different testing procedures cannot be used interchangeably. If there is a change in PSA assays while monitoring therapy, sequential testing should be performed to confirm baseline values. Performed By: #### L 500.4050, L501.9520, L101.9900, L100.0100 #### [facility] Laboratory [facility] [address] [place], [place], [id number] Platelet countOrdered By: Kvng Monteiro on 11-30-2024 Platelets (Bld) [#/Vol] 181 10*3/uL 150-450 [facility] Potassium measurement (mass/ volume)Ordered By: Perico Monteiro on 11-30-2024 Potassium (Unsp spec) [Mass/Vol] 4.4 mmol/L 3.3-5.1 [facility] RBC Auto (Bld) [#/Vol]Ordere d By: Perico Monteiro on 11-30-2024 RBC (Bld) [#/Vol] 5.17 10*6/uL 4.6-6.2 [facility] Screening total cholesterol/ high density lipoprotein (HDL) cholesterol ratioOrdered By: Perico Monteiro on 11-30-2024 Cholesterol.total/Choles terol in HDL [Mass ratio] 3.15 {ratio} [facility] Serum creatinine measurement (mass/volume)Ordered By: Perico Monteiro on 11-30-2024 Creatinine [Mass/Vol] 0.86 mg/dL 0.70-1.20 [facility] Serum globulin measurementOr dered By: Perico Monteiro on 11-30-2024 Globulin (S) [Mass/Vol] 2.7 g/dL 2.2-4.2 [facility] Serum glucose measurement (m ass/volume)Ordered By: Perico Monteiro on 11-30-2024 Glucose [Mass/Vol] 116 mg/dL High 70-99 [facility] Serum or plasma alanine bethea otransferase (ALT) measurementOrdered By: Perico Monteiro on 11-30-2024 ALT [Catalytic activity/Vol] 24 U/L <47 [facility] Serum or plasma albumin gee urement (mass/volume)Ordered By: Perico Monteiro on 11-30-2024 Albumin [Mass/Vol] 4.1 g/dL 3.4-4.8 [facility] Serum or plasma albumin/glob ulin mass ratioOrdered By: Perico Monteiro on 11-30-2024 Albumin/Globulin [Mass ratio] 1.5 {ratio} 0.9-2.4 [facility] Serum or plasma alkaline nancy sphatase measurementOrdered By: Perico Monteiro on 11-30-2024 ALP [Catalytic activity/Vol] 54 U/L 40-129 [facility] Serum or plasma calcium gee urement (mass/volume)Ordered By: Perico Monteiro on 11-30-2024 Calcium [Mass/Vol] 8.8 mg/dL 7.6-11.0 [facility] Serum or plasma cholesterol in HDL measurement (mass/volume)Ordered By: Perico Monteiro on 11-30-2024 Cholesterol in HDL [Mass/Vol] 33 mg/dL Low >40 [facility] Comment on above: National Cholesterol Education Program (NCEP) guidelines:<40 mg/dL: Low HDL-cholesterol (major risk factor for CHD)>= 60 mg/dL: High HDL-cholesterol (negative risk factor for CHD)HDL-cholesterol is affected by a number of factors, e.g. smoking, exercise, hormones, sex and age. Serum or plasma cholesterol measurement (mass/volume)Ordered By: Perico Monteiro on 11-30-2024 Cholesterol [Mass/Vol] 103 mg/dL <201 [facility] Comment on above: Cholesterol level, D esirable <200 mg/dLBorderline high cholesterol 200-239 mg/dLHigh cholesterol >=240 mg/dLRecommendations of the NCEP Adult Treatment Panel for the following risk-cutoff thresholds for the [place] population. Serum or plasma urea nitroge n measurement (mass/volume)Ordered By: Perico Monteiro on 11-30-2024 Urea nitrogen [Mass/Vol] 19 mg/dL 4-19 [facility] Sodium levelOrdered By: Tonny Monteiro on 11-30-2024 Sodium [Moles/Vol] 138 mmol/L 133-145 [facility] Total proteinOrdered By: Jack Monteiro on 11-30-2024 Protein [Mass/Vol] 6.8 g/dL 5.9-8.4 [facility] Triglycerides measurementOrd ered By: Perico Monteiro on 11-30-2024 Triglyceride [Mass/Vol] 137 mg/dL <199 [facility] Comment on above: The drugs N-Acetylcy steine and Metamizole may falsely depress this assay. Normal range: <150 mg/dLBorderline High: 150-199 mg/dLHigh: 200-499 mg/dLVery High: >500 mg/dL White blood cell (WBC) count Ordered By: Perico Monteiro on 11-30-2024 WBC (Bld) [#/Vol] 6.5 10*3/uL 4.4-11.0 [facility] Microalb:Creat Ratio,Random URon 11-28-2024 Creatinine [Mass/Vol] 68.20 mg/dL Normal 39.00-259.00 [facility] Comment on above: Order Comment: Order Date: 04/17/25 Order Info: 0786-1 - [facility] Order Info: [id number] - TSH Performed By: #### L 500.4050, L501.9520, L101.9900, L100.0100 #### [facility] Laboratory [address] [place], [address] MALB:CREAT UNABLE TO CALCULATE Normal [facility] Comment on above: Order Comment: Order Date: 04/17/25 Order Info: 0786-1 - [facility] Order Info: 3015-09 - TSH Performed By: #### L 500.4050, L501.9520, L101.9900, L100.0100 #### [facility] [address] [place], [address] MICROALBUMIN,UR < 12.0 Normal NO RANGE EST. [facility] Comment on above: Order Comment: Order Date: 04/17/25 Order Info: 0786-1 - [facility] Order Info: 30112-04 - TSH Performed By: #### L 500.4050, L501.9520, L101.9900, L100.0100 #### [facility] [address] [place], [place], [id number] Microalbumin/creat ratio urO rdered By: Perico Monteiro on 11-28-2024 Urine microalbumin/creatinine ratio measurement UNABLE TO CALCULATE mg/g CRE [facility] Random urine creatinine gee urement (mass/volume)Ordered By: Perico Monteiro on 11-28-2024 Creatinine Unsp time (U) [Mass/Vol] 68.20 mg/dL 39.00-259.00 [facility] Urine albumin measurement wi detection limit of 20 mg/L or less (mass/volume)Ordered By: Perico Monteiro on 11-28-2024 Albumin DL <= 20 mg/L (U) [Mass/Vol] < 12.0 mg/L NO RANGE EST. [facility] Testosterone, Serum Totalon 06-21-2024 Testosterone [Mass/Vol] 352.05 ng/dL Normal [facility] Comment on above: Order Comment: [...] L 100.0500, L500.4050, L500.4100, L509.3000, L501.9520 #### [facility] [address] [place], [address] CBC-Complete Blood Cnt No Di ffon 06-19-2024 Erythrocyte distribution width (RBC) [Ratio] 13.7 % Normal 11.6-14.6 [facility] Comment on above: Order Comment: Order Date: 05/29/24 Order Info: [id number] - CBC Performed By: #### L 100.0500, L500.4050, L500.4100, L509.3000, L501.9520 #### [facility] [address] [place], [place], [id number] Hematocrit (Bld) [Volume fraction] 51.9 % Normal 40-54 [facility] Comment on above: Order Comment: Order Date: 05/29/24 Order Info: [id number] - CBC Performed By: #### L 100.0500, L500.4050, L500.4100, L509.3000, L501.9520 #### [facility] [address] [place], [address] Hemoglobin (Bld) [Mass/Vol] 16.9 g/dL High 13.0-16.5 [facility] Comment on above: Order Comment: Order Date: 05/29/24 Order Info: [id number] - CBC Performed By: #### L 100.0500, L500.4050, L500.4100, L509.3000, [id number] #### [facility] [address] [place], [address] MCH (RBC) [Entitic mass] 29.3 pg Normal 27.0-32.0 [facility] Comment on above: Order Comment: Order Date: 05/29/24 Order Info: [id number] - CBC Performed By: #### L 100.0500, L500.4050, L500.4100, L509.3000, [id number] #### [facility] [address] [place], [address] MCHC (RBC) [Mass/Vol] 32.6 g/dL Normal 32-36 [facility] Comment on above: Order Comment: Order Date: 05/29/24 Order Info: [id number] - CBC Performed By: #### L 100.0500, L500.4050, L500.4100, L509.3000, [id number] #### [facility] [address] [place], [address] MCV (RBC) [Entitic vol] 89.9 fL Normal 80-94 [facility] Comment on above: Order Comment: Order Date: 05/29/24 Order Info: [id number] - CBC Performed By: #### L 100.0500, L500.4050, L500.4100, L509.3000, L501.9520 #### [facility] [address] [place], [address] Platelet mean volume (Bld) [Entitic vol] 9.3 fL Normal 6.2-12.0 [facility] Comment on above: Order Comment: Order Date: 05/29/24 Order Info: [id number] - CBC Performed By: #### L 100.0500, L500.4050, L500.4100, L509.3000, [id number] #### [facility] [address] [place], [address] Platelets (Bld) [#/Vol] 165 10*3/uL Normal 150-450 [facility] Comment on above: Order Comment: Order Date: 05/29/24 Order Info: [id number] - CBC Performed By: #### L 100.0500, L500.4050, L500.4100, L509.3000, [id number] #### [facility] [address] [place], [address] RBC (Bld) [#/Vol] 5.77 10*6/uL Normal 4.6-6.2 [facility] Comment on above: Order Comment: Order Date: 05/29/24 Order Info: [id number] - CBC Performed By: #### L 100.0500, L500.4050, L500.4100, L509.3000, [id number] #### [facility] [address] [place], [address] RDW SD 44.9 fl High 35.1-43.9 [facility] Comment on above: Order Comment: Order Date: 05/29/24 Order Info: [id number] - CBC Performed By: #### L 100.0500, L500.4050, L500.4100, L509.3000, L501.9520 #### [facility] [address] [place], [address] WBC (Bld) [#/Vol] 8.0 10*3/uL Normal 4.4-11.0 [facility] Comment on above: Order Comment: Order Date: 05/29/24 Order Info: [id number] - CBC Performed By: #### L 100.0500, L500.4050, L500.4100, L509.3000, L501.9520 #### [facility] [address] [place], [address] Comprehensive Metabolic Prof [facility] 06-19-2024 Albumin [Mass/Vol] 3.6 g/dL Normal 3.2-5.0 [facility] Comment on above: Order Comment: Order Date: 05/29/24 Order Info: [id number] - CMP Order Info: [id number] - LIPID Order Info: 3 - TSH Performed By: #### L 100.0500, L500.4050, L500.4100, L509.3000, L501.9520 #### [facility] [address] [place], [address] Albumin/Globulin [Mass ratio] 1.0 {ratio} Normal 0.9-2.4 [facility] Comment on above: Order Comment: Order Date: 05/29/24 Order Info: [id number] - CMP Order Info: [id number] - LIPID Order Info: [id number] - TSH Performed By: #### L 100.0500, L500.4050, L500.4100, L509.3000, L501.9520 #### [facility] [address] [place], [address] ALK P 50 U/L Normal 45-117 [facility] Comment on above: Order Comment: Order Date: 05/29/24 Order Info: [id number] - CMP Order Info: [id number] - LIPID Order Info: [id number] - TSH Performed By: #### L 100.0500, L500.4050, L500.4100, L509.3000, L501.9520 #### [facility] [address] [place], [address] ALT [Catalytic activity/Vol] 27 U/L Normal 16-61 [facility] Comment on above: Order Comment: Order Date: 05/29/24 Order Info: [id number] - CMP Order Info: [id number] - LIPID Order Info: [id number] - TSH Performed By: #### L 100.0500, L500.4050, L500.4100, L509.3000, L501.9520 #### [facility] [address] [place], [address] AST [Catalytic activity/Vol] 18 U/L Normal 15-37 [facility] Comment on above: Order Comment: Order Date: 05/29/24 Order Info: [id number] - CMP Order Info: - LIPID Order Info: [id number] - TSH Performed By: #### L 100.0500, L500.4050, L500.4100, L509.3000, L501.9520 #### [facility] [address] [place], [address] Bilirubin [Mass/Vol] 0.60 mg/dL Normal 0.20-1.00 [facility] Comment on above: Order Comment: Order Date: 05/29/24 Order Info: [id number] - CMP Order Info: - LIPID Order Info: [id number] - TSH Result Comment: For patients on eltrombopag therapy, use of Dimension [place] TBIL is not recommended. Performed By: #### L 100.0500, L500.4050, L500.4100, L509.3000, L501.9520 #### [facility] [address] [place], [address] BUN/CRE 24.4 RATIO High 10-20 [facility] Comment on above: Order Comment: Order Date: 05/29/24 Order Info: [id number] - CMP Order Info: - LIPID Order Info: [id number] - TSH Performed By: #### L 100.0500, L500.4050, L500.4100, L509.3000, L501.9520 #### [facility] [address] [place], [address] CA,Total 8.7 mg/dL Normal 8.5-10.1 [facility] Comment on above: Order Comment: Order Date: 05/29/24 Order Info: [id number] - CMP Order Info: - LIPID Order Info: [id number] - TSH Performed By: #### L 100.0500, L500.4050, L500.4100, L509.3000, L501.9520 #### [facility] [address] [place], [address] Chloride [Moles/Vol] 107 mmol/L Normal 98-107 [facility] Comment on above: Order Comment: Order Date: 05/29/24 Order Info: [id number] - CMP Order Info: - LIPID Order Info: [id number] - TSH Performed By: #### L 100.0500, L500.4050, L500.4100, L509.3000, L501.9520 #### [facility] [address] [place], [address] CO2 [Moles/Vol] 27.0 mmol/L Normal 21.0-32.0 [facility] Comment on above: Order Comment: Order Date: 05/29/24 Order Info: [id number] - CMP Order Info: - LIPID Order Info: [id number] - TSH Performed By: #### L 100.0500, L500.4050, L500.4100, L509.3000, L501.9520 #### [facility] [address] [place], [address] Creatinine [Mass/Vol] 0.90 mg/dL Normal 0.70-1.30 [facility] Comment on above: Order Comment: Order Date: 05/29/24 Order Info: [id number] - CMP Order Info: - LIPID Order Info: [id number] - TSH Result Comment: The validity of the calculated GFR GFRAA in patients over 70 years has not been determined. Clinical correlation is essential. Performed By: #### L 100.0500, L500.4050, L500.4100, L509.3000, L501.9520 #### [facility] [address] [place], [address] EST GFR - AA 108 mL/min Normal >60 [facility] Comment on above: Order Comment: Order Date: 05/29/24 Order Info: [id number] - CMP Order Info: - LIPID Order Info: [id number] - TSH Result Comment: Afri can [place] GFR Calc Performed By: #### L 100.0500, L500.4050, L500.4100, L509.3000, L501.9520 #### [facility] [address] [place], [address] GAP 5 Normal 5-15 [facility] Comment on above: Order Comment: Order Date: 05/29/24 Order Info: [id number] - CMP Order Info: [id number] - LIPID Order Info: [id number] - TSH Performed By: #### L 100.0500, L500.4050, L500.4100, L509.3000, L501.9520 #### [facility] [address] [place], [address] GFR/1.73 sq M.predicted among non-blacks MDRD (S/P/Bld) [Vol rate/Area] 89 mL/min/{1.73_m2} Normal >60 [facility] Comment on above: Order Comment: Order Date: 05/29/24 Order Info: 07 - CMP Order Info: [id number] - LIPID Order Info: [id number] - TSH Result Comment: Non- GFR Calc Performed By: #### L 100.0500, L500.4050, L500.4100, L509.3000, L501.9520 #### [facility] [address] [place], [address] Globulin (S) [Mass/Vol] 3.6 g/dL Normal 2.2-4.2 [facility] Comment on above: Order Comment: Order Date: 05/29/24 Order Info: [id number] - CMP Order Info: [id number] - LIPID Order Info: [id number] - TSH Performed By: #### L 100.0500, L500.4050, L500.4100, L509.3000, L501.9520 #### [facility] [address] [place], [address] Glucose [Mass/Vol] 130 mg/dL High 74-106 [facility] Comment on above: Order Comment: Order Date: 05/29/24 Order Info: [id number] - CMP Order Info: - LIPID Order Info: [id number] - TSH Result Comment: Fast ing Glucose result greater than or equal to 126 mg/dL suggests DIABETES MELLITUS per A.D.A. criteria. Performed By: #### L 100.0500, L500.4050, L500.4100, L509.3000, L501.9520 #### [facility] [address] [place], [address] Potassium [Moles/Vol] 4.0 mmol/L Normal 3.5-5.1 [facility] Comment on above: Order Comment: Order Date: 05/29/24 Order Info: [id number] - CMP Order Info: - LIPID Order Info: [id number] - TSH Performed By: #### L 100.0500, L500.4050, L500.4100, L509.3000, L501.9520 #### [facility] [address] [place], [address] Sodium [Moles/Vol] 140 mmol/L Normal 136-145 [facility] Comment on above: Order Comment: Order Date: 05/29/24 Order Info: [id number] - CMP Order Info: - LIPID Order Info: [id number] - TSH Performed By: #### L 100.0500, L500.4050, L500.4100, L509.3000, L501.9520 #### [facility] [address] [place], [address] T PROT 7.2 g/dL Normal 6.4-8.2 [facility] Comment on above: Order Comment: Order Date: 05/29/24 Order Info: [id number] - CMP Order Info: - LIPID Order Info: [id number] - TSH Performed By: #### L 100.0500, L500.4050, L500.4100, L509.3000, L501.9520 #### [facility] [address] [place], [address] Urea nitrogen [Mass/Vol] 22 mg/dL High 7-18 [facility] Comment on above: Order Comment: Order Date: 05/29/24 Order Info: [id number] - CMP Order Info: [id number] - LIPID Order Info: [id number] - TSH Performed By: #### L 100.0500, L500.4050, L500.4100, L509.3000, L501.9520 #### [facility] [address] [place], [address] Lipid Profileon 06-19-2024 Cholesterol [Mass/Vol] 99 mg/dL Normal 200 [facility] Comment on above: Order Comment: Order Date: 05/29/24 Order Info: 07 - CMP Order Info: [id number] - LIPID Order Info: 6-3 - TSH Result Comment: <200 mg/dL Desirable 200-240 mg/dL Borderline >240 mg/dL High Risk Performed By: #### L 100.0500, L500.4050, L500.4100, L509.3000, L501.9520 #### [facility] [address] [place], [address] Cholesterol in HDL [Mass/Vol] 32 mg/dL Low [facility] Comment on above: Order Comment: Order Date: 05/29/24 Order Info: [id number] - CMP Order Info: [id number] - LIPID Order Info: [id number] - TSH Result Comment: The drugs N-Acetylcysteine and Metamizole may falsely depress this assay. Reference Range HDL <40 mg/dL Low HDL Cholesterol HDL >or= 60 mg/dL High HDL Cholesterol Performed By: #### L 100.0500, L500.4050, L500.4100, L509.3000, L501.9520 #### [facility] [address] [place], [address] Cholesterol in LDL [Mass/Vol] 33 mg/dL Normal 0-130 [facility] Comment on above: Order Comment: Order Date: 05/29/24 Order Info: 07- - CMP Order Info: [id number] - LIPID Order Info: [id number] - TSH Performed By: #### L 100.0500, L500.4050, L500.4100, L509.3000, L501.9520 #### [facility] [address] [place], [address] Cholesterol in VLDL [Mass/Vol] 34 mg/dL Normal 5-40 [facility] Comment on above: Order Comment: Order Date: 05/29/24 Order Info: [id number] - CMP Order Info: - LIPID Order Info: [id number] - TSH Performed By: #### L 100.0500, L500.4050, L500.4100, L509.3000, L501.9520 #### [facility] [address] [place], [address] Triglyceride [Mass/Vol] 169 mg/dL Normal [facility] Comment on above: Order Comment: Order Date: 05/29/24 Order Info: [id number] - CMP Order Info: - LIPID Order Info: [id number] - TSH Result Comment: The drugs N-Acetylcysteine and Metamizole may falsely depress this assay. Serum Triglycerides Reference Interval Normal <150 mg/dL Borderline high 150 - 199 mg/dL High 200 - 499 mg/dL Very High > or = 500 mg/dL Performed By: #### L 100.0500, L500.4050, L500.4100, L509.3000, L501.9520 #### [facility] [address] [place], [address] Thyroid Stim Hormone (TSH)on 06-19-2024 TSH 1.160 uIU/mL Normal 0.358-3.740 [facility] Comment on above: Order Comment: Order Date: 05/29/24 Order Info: [id number] - CMP Order Info: - LIPID Order Info: [id number] - TSH Performed By: #### L 100.0500, L500.4050, L500.4100, L509.3000, L501.9520 #### [facility] [place], [address] Basophil percentageOrdered B y: Perico Monteiro on 10-20-2023 Basophil percentage 0 SEEN /hpf 0-5 [facility] Bilirubin Test strip Ql (U)O rdered By: Perico Monteiro on 10-20-2023 Bilirubin Ql (U) Negative Negative [facility] Culture, urineOrdered By: Kvng Monteiro on 10-20-2023 Bacteria identified Cx Nom (U) Positive [facility] Ketones Test strip Ql (U)Ord ered By: Perico Monteiro on 10-20-2023 Ketones Ql (U) Negative Negative [facility] Mucus LM Ql (Urine sed)Order ed By: Perico Monteiro on 10-20-2023 Mucus Ql (Urine sed) 0 SEEN /hpf [facility] Nitrite Test strip Ql (U)Ord ered By: Perico Monteiro on 10-20-2023 Nitrite Ql (U) Negative Negative [facility] No Panel InformationOrdered By: Perico Monteiro on 10-20-2023 Urine RBC 0-5 SEEN /hpf 0-5 [facility] Protein Test strip Ql (U)Ord ered By: Perico Monteiro on 10-20-2023 Protein Ql (U) Negative Negative [facility] Squamous epithelial cells de tection in urine sediment by light microscopyOrdered By: Perico Monteiro on 10-20-2023 Epithelial cells.squamous LM Ql (Urine sed) 0 SEEN /hpf 0-5 [facility] Urine blood detectionOrdered By: Perico Monteiro on 10-20-2023 RBC Ql (U) 50 /ul Negative [facility] Urine clarityOrdered By: Jack Monteiro on 10-20-2023 Clarity (U) Clear Clear [facility] Urine color determinationOrd ered By: Perico Monteiro on 10-20-2023 Color (U) Yellow Yellow [facility] Urine glucose detectionOrder ed By: Perico Monteiro on 10-20-2023 Glucose Ql (U) 1000 mg/dl Normal [facility] Urine leukocyte esterase det ection by dipstickOrdered By: Perico Monteiro on 10-20-2023 Leukocyte esterase Test strip Ql (U) Negative Negative [facility] Urine pHOrdered By: Stevan Thania on 10-20-2023 pH (U) 5.0 [pH] 5.0 - 8.0 [facility] Urine sediment bacteria coun t by microscopy (number/high power field)Ordered By: Perico Monteiro on 10-20-2023 Bacteria LM.HPF (Urine sed) [#/Area] 0 /[HPF] None Seen [facility] Urine specific gravity measu rementOrdered By: Perico Monteiro on 10-20-2023 Specific gravity (U) [Rel density] 1.015 1.002-1.030 [facility] Urine urobilinogen measureme ntOrdered By: Perico Monteiro on 10-20-2023 Urobilinogen Ql (U) Normal mg/dl Normal [facility] Basophil percentageOrdered B y: Perico Monteiro on 10-19-2023 Testosterone [Mass/Vol] 226.75 ng/dL [facility] Comment on above: CENTRAL 90% REFERENC E RANGES MALE AGE <50 197.44 - 669.58 ng/dL MALE AGE > or = 50 187.72 - 684.19 ng/dL FEMALE AGE <50 8.38 - 35.01 ng/dL FEMALE AGE > or = 50 <7.00 - 35.92 ng/dL Effective as of 01/27/21 Basophil percentageOrdered B y: Cornelius Monteiro on 08-24-2023 Bilirubin [Mass/Vol] 0.40 mg/dL 0.20-1.00 [facility] Comment on above: For patients on eltr ombopag therapy, use of Dimension [place] TBIL is not recommended. Chloride [Moles/Vol] 105 mmol/L 98-107 [facility] Cholesterol [Mass/Vol] 124 mg/dL <200 [facility] Comment on above: <200 mg/dL Desirable 200-240 mg/dL Borderline >240 mg/dL High Risk Glucose [Mass/Vol] 170 mg/dL 74-106 [facility] Comment on above: Fasting Glucose resu lt greater than or equal to 126 mg/dL suggests DIABETES MELLITUS per A.D.A. criteria. Potassium [Moles/Vol] 4.2 mmol/L 3.5-5.1 [facility] Protein [Mass/Vol] 7.2 g/dL 6.4-8.2 [facility] Sodium [Moles/Vol] 139 mmol/L 136-145 [facility] Testosterone [Mass/Vol] 93.82 ng/dL [facility] Comment on above: CENTRAL 90% REFERENC E RANGES MALE AGE <50 197.44 - 669.58 ng/dL MALE AGE > or = 50 187.72 - 684.19 ng/dL FEMALE AGE <50 8.38 - 35.01 ng/dL FEMALE AGE > or = 50 <7.00 - 35.92 ng/dL Effective as of 01/27/21 Triglyceride [Mass/Vol] 283 mg/dL <199 [facility] Comment on above: The drugs N-Acetylcy steine and Metamizole may falsely depress this assay.Serum Triglycerides Reference Interval Normal <150 mg/dL Borderline high 150 - 199 mg/dL High 200 - 499 mg/dL Very High > or = 500 mg/dL Laboratory - Chemistry and C hemistry - challengeOrdered By: Cornelius Monteiro on 08-24-2023 Albumin/Globulin [Mass ratio] 0.9 {ratio} 0.9-2.4 [facility] ALP [Catalytic activity/Vol] 57 U/L 45-117 [facility] ALT [Catalytic activity/Vol] 32 U/L 16-61 [facility] Cholesterol in HDL [Mass/Vol] 36 mg/dL >40 [facility] Comment on above: The drugs N-Acetylcy steine and Metamizole may falsely depress this assay. Reference Range HDL <40 mg/dL Low HDL Cholesterol HDL >or= 60 mg/dL High HDL Cholesterol Cholesterol in LDL [Mass/Vol] 31 mg/dL 0-130 [facility] CO2 [Moles/Vol] 30.0 mmol/L 21.0-32.0 [facility] Cobalamin (Vitamin B12) [Mass/Vol] 456 pg/mL 211-911 [facility] Globulin (S) [Mass/Vol] 3.7 g/dL 2.2-4.2 [facility] Urea nitrogen/Creatinine [Mass ratio] 21.0 mg/mg 10-20 [facility] No Panel InformationOrdered By: Cornelius Monteiro on 08-24-2023 Estimated GFR (MDRD) Amer 91 mL/min >60 [facility] Comment on above: GFR Calc Estimated GFR (MDRD) Non-Af Amer 75 mL/min >60 [facility] Comment on above: Non- GFR Calc Prostate Specific Antigen Screen 0.71 ng/mL 0.00-4.00 [facility] Comment on above: This test was perfor med using the TPSA assay method for [employer] chemistry system. Values obtained with differentassay methods cannot be used interchangably.When changing PSA assays in the course of monitoring apatient, additional sequential testing should be carriedout to confirm baseline values. VLDL Cholesterol 57 mg/dL 5-40 [facility] Serum or plasma calcium gee urement (mass/volume)Ordered By: Cornelius Monteiro on 08-24-2023 Calcium [Mass/Vol] 8.5 mg/dL 8.5-10.1 [facility] Serum or plasma creatinine m easurement (mass/volume)Ordered By: Cornelius Monteiro on 08-24-2023 Creatinine [Mass/Vol] 1.05 mg/dL 0.70-1.30 [facility] Comment on above: The validity of the calculated GFR & GFRAA in patients over 70 years has not been determined. Clinical correlation is essential. Serum or plasma thyroid stim ulating hormone (TSH) measurement (units/volume)Ordered By: Cornelius Monteiro on 08-24-2023 TSH Qn 3.14 uIU/mL 0.358-3.74 [facility] Serum or plasma urea nitroge n measurement (mass/volume)Ordered By: Cornelius Monteiro on 08-24-2023 Urea nitrogen [Mass/Vol] 22 mg/dL 7-18 [facility] Thin prep Papanicolaou smear with manual screeningOrdered By: Cornelius Monteiro on 08-24-2023 Thin prep Papanicolaou smear with manual screening 3.5 g/dL 3.2-5.0 [facility] Thin prep Papanicolaou smear with manual screening 19 U/L 15-37 [facility] Thin prep Papanicolaou smear with manual screening 4 - [facility] Whole blood hemoglobin A1c/t otal hemoglobin ratio (mass fraction)Ordered By: Cornelius Monteiro on 08-24-2023 HbA1c (Bld) [Mass fraction] 9.0 % 3.8-5.6 [facility] Comment on above: Normal < 5.7 % Predi abetic 5.7 - 6.4 % Diabetic >or= 6.5 % Please note range changes. Basophil percentageOrdered B y: Cornelius Monteiro on 03-18-2023 Bilirubin [Mass/Vol] 0.40 mg/dL 0.20-1.00 [facility] Comment on above: For patients on eltr ombopag therapy, use of Dimension [place] TBIL is not recommended. Chloride [Moles/Vol] 104 mmol/L 98-107 [facility] Cholesterol [Mass/Vol] 95 mg/dL <200 [facility] Comment on above: <200 mg/dL Desirable 200-240 mg/dL Borderline >240 mg/dL High Risk Glucose [Mass/Vol] 219 mg/dL 74-106 [facility] Comment on above: Glucose result great er than or equal to 200 mg/dLsuggests DIABETES MELLITUS per A.D.A. criteria. Potassium [Moles/Vol] 4.1 mmol/L 3.5-5.1 [facility] Protein [Mass/Vol] 7.0 g/dL 6.4-8.2 [facility] Sodium [Moles/Vol] 139 mmol/L 136-145 [facility] Triglyceride [Mass/Vol] 185 mg/dL <199 [facility] Comment on above: The drugs N-Acetylcy steine and Metamizole may falsely depress this assay.Serum Triglycerides Reference Interval Normal <150 mg/dL Borderline high 150 - 199 mg/dL High 200 - 499 mg/dL Very High > or = 500 mg/dL WBC (Bld) [#/Vol] 8.0 10*3/uL 4.4-11.0 [facility] Blood erythrocytes count (nu mber/volume)Ordered By: Cornelius Monteiro on 03-18-2023 RBC (Bld) [#/Vol] 5.55 10*6/uL 4.6-6.2 [facility] Blood hemoglobin measurement (mass/volume)Ordered By: Cornelius Monteiro on 03-18-2023 Hemoglobin (Bld) [Mass/Vol] 15.2 g/dL 13.0-16.5 [facility] Blood platelet mean volumeOr dered By: Cornelius Monteiro on 03-18-2023 Platelet mean volume (Bld) [Entitic vol] 9.9 fL 6.2-12.0 [facility] Determination of erythrocyte mean corpuscular volume (MCV)Ordered By: Cornelius Monteiro on 03-18-2023 MCV (RBC) [Entitic vol] 90.8 fL 80-94 [facility] Hematocrit Auto (Bld) [Volum e fraction]Ordered By: Cornelius Monteiro on 03-18-2023 Hematocrit (Bld) [Volume fraction] 50.4 % 40-54 [facility] Laboratory - Chemistry and C hemistry - challengeOrdered By: Cornelius Ranney on 03-18-2023 ALP [Catalytic activity/Vol] 60 U/L 45-117 [facility] ALT [Catalytic activity/Vol] 27 U/L 16-61 [facility] CO2 [Moles/Vol] 31.0 mmol/L 21.0-32.0 [facility] Cobalamin (Vitamin B12) [Mass/Vol] 485 pg/mL 211-911 [facility] Globulin (S) [Mass/Vol] 3.7 g/dL 2.2-4.2 [facility] Urea nitrogen/Creatinine [Mass ratio] 13.9 mg/mg 10-20 [facility] Laboratory - Hematology and Cell countsOrdered By: Cornelius Monteiro on 03-18-2023 Erythrocyte distribution width (RBC) [Entitic vol] 48.2 fL 35.1-43.9 [facility] Erythrocyte distribution width (RBC) [Ratio] 14.5 % 11.6-14.6 [facility] MCH (RBC) [Entitic mass] 27.4 pg 27.0-32.0 [facility] MCHC Auto (RBC) [Mass/Vol]Or dered By: Cornelius Monteiro on 03-18-2023 MCHC (RBC) [Mass/Vol] 30.2 g/dL 32-36 [facility] No Panel InformationOrdered By: Cornelius Monteiro on 03-18-2023 Estimated GFR (MDRD) Amer 82 mL/min >60 [facility] Comment on above: GFR Calc Estimated GFR (MDRD) Non-Af Amer 67 mL/min >60 [facility] Comment on above: Non- GFR Calc Platelets bldOrdered By: Jack roselia Thania on 03-18-2023 Platelets (Bld) [#/Vol] 217 10*3/uL 150-450 [facility] Serum or plasma albumin gee urement (mass/volume)Ordered By: Cornelius Monteiro on 03-18-2023 Albumin [Mass/Vol] 3.3 g/dL 3.2-5.0 [facility] Serum or plasma albumin/glob ulin mass ratioOrdered By: Cornelius Monteiro on 03-18-2023 Albumin/Globulin [Mass ratio] 0.9 {ratio} 0.9-2.4 [facility] Serum or plasma calcium gee urement (mass/volume)Ordered By: Cornelius Monteiro on 03-18-2023 Calcium [Mass/Vol] 8.5 mg/dL 8.5-10.1 [facility] Serum or plasma cholesterol in HDL measurement (mass/volume)Ordered By: Cornelius Monteiro on 03-18-2023 Cholesterol in HDL [Mass/Vol] 30 mg/dL >40 [facility] Comment on above: The drugs N-Acetylcy steine and Metamizole may falsely depress this assay. Reference Range HDL <40 mg/dL Low HDL Cholesterol HDL >or= 60 mg/dL High HDL Cholesterol Serum or plasma cholesterol in VLDL measurement (mass/volume)Ordered By: Cornelius Monteiro on 03-18-2023 Cholesterol in VLDL [Mass/Vol] 37 mg/dL 5-40 [facility] Serum or plasma creatinine m easurement (mass/volume)Ordered By: Cornelius Monteiro on 03-18-2023 Creatinine [Mass/Vol] 1.15 mg/dL 0.70-1.30 [facility] Comment on above: The validity of the calculated GFR & GFRAA in patients over 70 years has not been determined. Clinical correlation is essential. Serum or plasma low density lipoprotein (LDL) cholesterol measurement (mass/volume)Ordered By: Cornelius Monteiro on 03-18-2023 Cholesterol in LDL [Mass/Vol] 28 mg/dL 0-130 [facility] Serum or plasma urea nitroge n measurement (mass/volume)Ordered By: Cornelius Monteiro on 03-18-2023 Urea nitrogen [Mass/Vol] 16 mg/dL 7-18 [facility] Thin prep Papanicolaou smear with manual screeningOrdered By: Cornelius Monteiro on 03-18-2023 Thin prep Papanicolaou smear with manual screening 22 U/L 15-37 [facility] Thin prep Papanicolaou smear with manual screening 4 5-15 [facility] No Panel InformationOrdered By: Dr. Conner on 09-15-2022 Endomysial IgA Antibody Negative Negative [facility] Comment on above: Serum is slightly li pemic. Serum IgA measurement (units /volume)Ordered By: Dr. Conner on 09-15-2022 IgA Qn (S) 243 mg/dL 61-437 [facility] Comment on above: Performed at: [facility] [place] [id number] Director: Lucho Sinha PhD, Phone: [phone] Serum or plasma C reactive p rotein measurement (mass/volume)Ordered By: Dr. Conner on 09-15-2022 CRP [Mass/Vol] 3.49 mg/L 0.0-3.0 [facility] Comment on above: C-Reactive Protein ( CRP) provides useful information for thediagnosis, therapy and monitoring of inflammatory processesand associated diseases. For the evaluation of Relative Riskfor Cardiovascular Disease, a High Sensitivity CRP (HSCRP)should be ordered. Serum tissue transglutaminas e IgA antibody assay (units/volume)Ordered By: Dr. Conner on 09-15-2022 tTG IgA Qn (S) <2 U/mL 0-3 [facility] Comment on above: Negative 0 - 3 Weak Positive 4 - 10 Positive >10 Tissue Transglutaminase (tTG) has been identified as the endomysial antigen. Studies have demonstr- ated that endomysial IgA antibodies have over 99% specificity for gluten sensitive enteropathy. Stool gastrointestinal hemog lobin detection by immunologic methodOrdered By: Dr. Conner on 09-15-2022 Lower GI hemoglobin IA Ql (Stl) [facility] Basophil percentageOrdered B y: Dr. Monteiro on 07-21-2022 Bilirubin [Mass/Vol] 0.30 mg/dL 0.20-1.00 [facility] Comment on above: For patients on eltr ombopag therapy, use of Dimension [place] TBIL is not recommended. Chloride [Moles/Vol] 103 mmol/L 98-107 [facility] Cholesterol [Mass/Vol] 145 mg/dL <200 [facility] Comment on above: <200 mg/dL Desirable 200-240 mg/dL Borderline >240 mg/dL High Risk Glucose [Mass/Vol] 150 mg/dL 74-106 [facility] Comment on above: Fasting Glucose resu lt greater than or equal to 126 mg/dL suggests DIABETES MELLITUS per A.D.A. criteria. Potassium [Moles/Vol] 4.2 mmol/L 3.5-5.1 [facility] Protein [Mass/Vol] 7.3 g/dL 6.4-8.2 [facility] Sodium [Moles/Vol] 138 mmol/L 136-145 [facility] Testosterone [Mass/Vol] 388.01 ng/dL [facility] Comment on above: CENTRAL 90% REFERENC E RANGES MALE AGE <50 197.44 - 669.58 ng/dL MALE AGE > or = 50 187.72 - 684.19 ng/dL FEMALE AGE <50 8.38 - 35.01 ng/dL FEMALE AGE > or = 50 <7.00 - 35.92 ng/dL Effective as of 01/27/21 Triglyceride [Mass/Vol] 408 mg/dL <199 [facility] Comment on above: The drugs N-Acetylcy steine and Metamizole may falsely depress this assay. TRIGLYCERIDE IS GREATER THAN 400 mg/dL. LDL RESULT IS INVALID AND WILL NOT BE REPORTED.Serum Triglycerides Reference Interval Normal <150 mg/dL Borderline high 150 - 199 mg/dL High 200 - 499 mg/dL Very High > or = 500 mg/dL WBC (Bld) [#/Vol] 8.5 10*3/uL 4.4-11.0 [facility] Blood erythrocytes count (nu mber/volume)Ordered By: Dr. Monteiro on 07-21-2022 RBC (Bld) [#/Vol] 4.61 10*6/uL 4.6-6.2 [facility] Blood hemoglobin measurement (mass/volume)Ordered By: Dr. Monteiro on 07-21-2022 Hemoglobin (Bld) [Mass/Vol] 13.7 g/dL 13.0-16.5 [facility] Blood platelet mean volumeOr dered By: Dr. Monteiro on 07-21-2022 Platelet mean volume (Bld) [Entitic vol] 9.9 fL 6.2-12.0 [facility] Determination of erythrocyte mean corpuscular volume (MCV)Ordered By: Dr. Monteiro on 07-21-2022 MCV (RBC) [Entitic vol] 93.5 fL 80-94 [facility] Hematocrit Auto (Bld) [Volum e fraction]Ordered By: Dr. Mnoteiro on 07-21-2022 Hematocrit (Bld) [Volume fraction] 43.1 % 40-54 [facility] Laboratory - Chemistry and C hemistry - challengeOrdered By: Dr. Monteiro on 07-21-2022 ALP [Catalytic activity/Vol] 58 U/L 45-117 [facility] ALT [Catalytic activity/Vol] 24 U/L 16-61 [facility] CO2 [Moles/Vol] 29.0 mmol/L 21.0-32.0 [facility] Globulin (S) [Mass/Vol] 3.6 g/dL 2.2-4.2 [facility] Urea nitrogen/Creatinine [Mass ratio] 18.8 mg/mg 10-20 [facility] Laboratory - Hematology and Cell countsOrdered By: Dr. Monteiro on 07-21-2022 Erythrocyte distribution width (RBC) [Entitic vol] 46.5 fL 35.1-43.9 [facility] Erythrocyte distribution width (RBC) [Ratio] 13.6 % 11.6-14.6 [facility] MCH (RBC) [Entitic mass] 29.7 pg 27.0-32.0 [facility] MCHC Auto (RBC) [Mass/Vol]Or dered By: Dr. Monteiro on 07-21-2022 MCHC (RBC) [Mass/Vol] 31.8 g/dL 32-36 [facility] No Panel InformationOrdered By: Dr. Monteiro on 07-21-2022 Estimated GFR (MDRD) Amer 101 mL/min >60 [facility] Comment on above: GFR Calc Estimated GFR (MDRD) Non-Af Amer 83 mL/min >60 [facility] Comment on above: Non- GFR Calc Platelets bldOrdered By: Dr. Monteiro on 07-21-2022 Platelets (Bld) [#/Vol] 232 10*3/uL 150-450 [facility] Serum or plasma albumin gee urement (mass/volume)Ordered By: Dr. Monteiro on 07-21-2022 Albumin [Mass/Vol] 3.7 g/dL 3.2-5.0 [facility] Serum or plasma albumin/glob ulin mass ratioOrdered By: Dr. Monteiro on 07-21-2022 Albumin/Globulin [Mass ratio] 1.0 {ratio} 0.9-2.4 [facility] Serum or plasma calcium gee urement (mass/volume)Ordered By: Dr. Monteiro on 07-21-2022 Calcium [Mass/Vol] 9.0 mg/dL 8.5-10.1 [facility] Serum or plasma cholesterol in HDL measurement (mass/volume)Ordered By: Dr. Monteiro on 07-21-2022 Cholesterol in HDL [Mass/Vol] 33 mg/dL >40 [facility] Comment on above: The drugs N-Acetylcy steine and Metamizole may falsely depress this assay. Reference Range HDL <40 mg/dL Low HDL Cholesterol HDL >or= 60 mg/dL High HDL Cholesterol Serum or plasma cholesterol in VLDL measurement (mass/volume)Ordered By: Dr. Monteiro on 07-21-2022 Cholesterol in VLDL [Mass/Vol] TNP [facility] Comment on above: Test not performed Serum or plasma creatinine m easurement (mass/volume)Ordered By: Dr. Monteiro on 07-21-2022 Creatinine [Mass/Vol] 0.96 mg/dL 0.70-1.30 [facility] Comment on above: The validity of the calculated GFR & GFRAA in patients over 70 years has not been determined. Clinical correlation is essential. Serum or plasma low density lipoprotein (LDL) cholesterol measurement (mass/volume)Ordered By: Dr. Monteiro on 07-21-2022 Cholesterol in LDL [Mass/Vol] TNP [facility] Comment on above: Test not performed Serum or plasma urea nitroge n measurement (mass/volume)Ordered By: Dr. Monteiro on 07-21-2022 Urea nitrogen [Mass/Vol] 18 mg/dL 7-18 [facility] Thin prep Papanicolaou smear with manual screeningOrdered By: Dr. Monteiro on 07-21-2022 Thin prep Papanicolaou smear with manual screening 15 U/L 15-37 [facility] Thin prep Papanicolaou smear with manual screening 6 5-15 [facility] Ova and parasitesOrdered By: Dr. Monteiro on 05-18-2022 Ova and parasites identified LM Nom (Unsp spec) [facility] Absolute lymphocyte countOrd ered By: Dr. Monteiro on 04-20-2022 Lymphocytes Auto (Unsp spec) [#/Vol] 2.68 10*3/uL 0.83-4.51 [facility] Basophil percentageOrdered B y: Dr. Monteiro on 04-20-2022 Amylase [Catalytic activity/Vol] 32 U/L 25-115 [facility] Basophils/100 WBC (Bld) 0.6 % 0-1 [facility] Bilirubin [Mass/Vol] 0.20 mg/dL 0.20-1.00 [facility] Comment on above: For patients on eltr ombopag therapy, use of Dimension [place] TBIL is not recommended. Chloride [Moles/Vol] 102 mmol/L 98-107 [facility] Eosinophils/100 WBC (Bld) 4.1 % 0-5 [facility] Glucose [Mass/Vol] 159 mg/dL 74-106 [facility] Comment on above: Fasting Glucose resu lt greater than or equal to 126 mg/dL suggests DIABETES MELLITUS per A.D.A. criteria. Neutrophils (Bld) [#/Vol] 5.6 10*3/uL 2.0-7.7 [facility] Neutrophils/100 WBC (Bld) 58.7 % 47-70 [facility] Potassium [Moles/Vol] 4.1 mmol/L 3.5-5.1 [facility] Protein [Mass/Vol] 7.8 g/dL 6.4-8.2 [facility] Sodium [Moles/Vol] 138 mmol/L 136-145 [facility] WBC (Bld) [#/Vol] 9.5 10*3/uL 4.4-11.0 [facility] Blood erythrocytes count (nu mber/volume)Ordered By: Dr. Monteiro on 04-20-2022 RBC (Bld) [#/Vol] 4.87 10*6/uL 4.6-6.2 [facility] Blood hemoglobin measurement (mass/volume)Ordered By: Dr. Monteiro on 04-20-2022 Hemoglobin (Bld) [Mass/Vol] 14.8 g/dL 13.0-16.5 [facility] Blood lymphocytes/100 leukoc ytesOrdered By: Dr. Monteiro on 04-20-2022 Lymphocytes/100 WBC (Bld) 28.3 % 19-41 [facility] Blood monocytes/100 leukocyt esOrdered By: Dr. Monteiro on 04-20-2022 Monocytes/100 WBC (Bld) 7.2 % 0-10 [facility] Blood platelet mean volumeOr dered By: Dr. Monteiro on 04-20-2022 Platelet mean volume (Bld) [Entitic vol] 9.5 fL 6.2-12.0 [facility] Determination of erythrocyte mean corpuscular volume (MCV)Ordered By: Dr. Monteiro on 04-20-2022 MCV (RBC) [Entitic vol] 91.8 fL 80-94 [facility] Erythrocyte sedimentation ra teOrdered By: Dr. Monteiro on 04-20-2022 ESR (Bld) [Velocity] 16 mm/h 0-20 [facility] Hematocrit Auto (Bld) [Volum e fraction]Ordered By: Dr. Monteiro on 04-20-2022 Hematocrit (Bld) [Volume fraction] 44.7 % 40-54 [facility] Laboratory - Chemistry and C hemistry - challengeOrdered By: Dr. Monteiro on 04-20-2022 ALP [Catalytic activity/Vol] 67 U/L 45-117 [facility] ALT [Catalytic activity/Vol] 22 U/L 16-61 [facility] CO2 [Moles/Vol] 29.0 mmol/L 21.0-32.0 [facility] Globulin (S) [Mass/Vol] 4.3 g/dL 2.2-4.2 [facility] Lipase [Catalytic activity/Vol] 165 U/L 73-393 [facility] Urea nitrogen/Creatinine [Mass ratio] 14.1 mg/mg 10-20 [facility] Laboratory - Hematology and Cell countsOrdered By: Dr. Monteiro on 04-20-2022 Erythrocyte distribution width (RBC) [Entitic vol] 44.4 fL 35.1-43.9 [facility] Erythrocyte distribution width (RBC) [Ratio] 13.2 % 11.6-14.6 [facility] Immature granulocytes/100 WBC (Bld) 1.100 % 0.0-0.9 [facility] Comment on above: IG% - Immature Granu locytes (promyelocytes, myelocytes and metamyelocytes) > 1% indicates that a LEFT SHIFT is Present. MCH (RBC) [Entitic mass] 30.4 pg 27.0-32.0 [facility] Nucleated RBC/100 WBC (Bld) [Ratio] 0 % 0-5 [facility] MCHC Auto (RBC) [Mass/Vol]Or dered By: Dr. Monteiro on 04-20-2022 MCHC (RBC) [Mass/Vol] 33.1 g/dL 32-36 [facility] No Panel InformationOrdered By: Dr. Monteiro on 04-20-2022 Estimated GFR (MDRD) Amer 68 mL/min >60 [facility] Comment on above: GFR Calc Estimated GFR (MDRD) Non-Af Amer 56 mL/min >60 [facility] Comment on above: Non- GFR Calc Platelets bldOrdered By: Dr. Monteiro on 04-20-2022 Platelets (Bld) [#/Vol] 273 10*3/uL 150-450 [facility] Serum or plasma albumin gee urement (mass/volume)Ordered By: Dr. Monteiro on 04-20-2022 Albumin [Mass/Vol] 3.5 g/dL 3.2-5.0 [facility] Serum or plasma albumin/glob ulin mass ratioOrdered By: Dr. Monteiro on 04-20-2022 Albumin/Globulin [Mass ratio] 0.8 {ratio} 0.9-2.4 [facility] Serum or plasma calcium gee urement (mass/volume)Ordered By: Dr. Monteiro on 04-20-2022 Calcium [Mass/Vol] 9.3 mg/dL 8.5-10.1 [facility] Serum or plasma creatinine m easurement (mass/volume)Ordered By: Dr. Monteiro on 04-20-2022 Creatinine [Mass/Vol] 1.35 mg/dL 0.70-1.30 [facility] Comment on above: The validity of the calculated GFR & GFRAA in patients over 70 years has not been determined. Clinical correlation is essential. Serum or plasma urea nitroge n measurement (mass/volume)Ordered By: Dr. Monteiro on 04-20-2022 Urea nitrogen [Mass/Vol] 19 mg/dL 7-18 [facility] Thin prep Papanicolaou smear with manual screeningOrdered By: Dr. Monteiro on 04-20-2022 Thin prep Papanicolaou smear with manual screening 12 U/L 15-37 [facility] Thin prep Papanicolaou smear with manual screening 7 5-15 [facility] Basophil percentageon 2021 Basophil percentage 0 SEEN /hpf 0-5 [facility] Work Phone: Bilirubin Test strip Ql (U)o n 03-15-2022 Bilirubin Ql (U) Negative Negative [facility] Work Phone: Ketones Test strip Ql (U)on 03-15-2022 Ketones Ql (U) Negative Negative [facility] Work Phone: Mucus LM Ql (Urine sed)on Mucus Ql (Urine sed) 0 SEEN /hpf [facility] Work Phone: Nitrite Test strip Ql (U)on 03-15-2022 Nitrite Ql (U) Negative Negative [facility] Work Phone: Protein Test strip Ql (U)on 03-15-2022 Protein Ql (U) 30 mg/dl Negative [facility] Work Phone: Squamous epithelial cells de tection in urine sediment by light microscopyon 03-15-2022 Epithelial cells.squamous LM Ql (Urine sed) 0 SEEN /hpf 0-5 [facility] Work Phone: Urine blood detectionon 03-04 RBC Ql (U) 250 /ul Negative [facility] Work Phone: RBC Ql (U) 25-50 SEEN /hpf 0-5 [facility] Work Phone: Urine clarityon 03-15-2022 Clarity (U) Clear Clear [facility] Work Phone: Urine color determinationon 03-15-2022 Color (U) Yellow Yellow [facility] Work Phone: Urine glucose detectionon Glucose Ql (U) Normal mg/dl Normal [facility] Work Phone: Urine leukocyte esterase det ection by dipstickon 03-15-2022 Leukocyte esterase Test strip Ql (U) Negative Negative [facility] Work Phone: Urine pHon 03-15-2022 pH (U) 5.0 [pH] 5.0 - 8.0 [facility] Work Phone: Urine sediment bacteria coun t by microscopy (number/high power field)on 03-15-2022 Bacteria LM.HPF (Urine sed) [#/Area] RARE /hpf None Seen [facility] Work Phone: Urine specific gravity measu rementon 03-15-2022 Specific gravity (U) [Rel density] 1.025 1.002-1.030 [facility] Work Phone: Urobilinogen Auto test strip Ql (U)on 03-15-2022 Urobilinogen Ql (U) Normal mg/dl Normal [facility] Work Phone: Laboratory - Microbiology an d Antimicrobial susceptibilityon 02-17-2022 SARS-CoV-2 (COVID-19) RNA TAMARA+probe Ql (Unsp spec) Detected Not Detect [facility] Work Phone: Comment on above: Normal Reference [...] percentageon 2021 Bilirubin [Mass/Vol] 0.40 mg/dL 0.20-1.00 [facility] Work Phone: Comment on above: For patients on eltr ombopag therapy, use of Dimension [place] TBIL is not recommended. Chloride [Moles/Vol] 104 mmol/L 98-107 [facility] Work Phone: [phone] Cholesterol [Mass/Vol] 153 mg/dL <200 [facility] Work Phone: [phone] Comment on above: <200 mg/dL Desirable 200-240 mg/dL Borderline >240 mg/dL High Risk Glucose [Mass/Vol] 148 mg/dL 74-106 [facility] Work Phone: Comment on above: Fasting Glucose resu lt greater than or equal to 126 mg/dL suggests DIABETES MELLITUS per A.D.A. criteria. Potassium [Moles/Vol] 4.4 mmol/L 3.5-5.1 [facility] Work Phone: [phone] Protein [Mass/Vol] 7.4 g/dL 6.4-8.2 [facility] Work Phone: [phone] Sodium [Moles/Vol] 137 mmol/L 136-145 [facility] Work Phone: [phone] Testosterone [Mass/Vol] 189.72 ng/dL [facility] Work Phone: Comment on above: CENTRAL 90% REFERENC E RANGES MALE AGE <50 197.44 - 669.58 ng/dL MALE AGE > or = 50 187.72 - 684.19 ng/dL FEMALE AGE <50 8.38 - 35.01 ng/dL FEMALE AGE > or = 50 <7.00 - 35.92 ng/dL Effective as of 01/27/21 Triglyceride [Mass/Vol] 456 mg/dL <199 [facility] Work Phone: [phone] Comment on above: The drugs N-Acetylcy steine [...] 10-24-2021 ALP [Catalytic activity/Vol] 54 U/L 45-117 [facility] Work Phone: [phone] ALT [Catalytic activity/Vol] 30 U/L 16-61 [facility] Work Phone: CO2 [Moles/Vol] 29.0 mmol/L 21.0-32.0 [facility] Work Phone: [phone] Globulin (S) [Mass/Vol] 3.8 g/dL 2.2-4.2 [facility] Work Phone: [phone] Urea nitrogen/Creatinine [Mass ratio] 15.6 mg/mg 10-20 [facility] Work Phone: [phone] No Panel Informationon 10-24 Estimated GFR (MDRD) Amer 101 mL/min >60 [facility] Work Phone: [phone] Comment on above: GFR Calc Estimated GFR (MDRD) Non-Af Amer 83 mL/min >60 [facility] Work Phone: [phone] Comment on above: Non- GFR Calc Prostate Specific Antigen Screen 0.83 ng/mL 0.00-4.00 [facility] Work Phone: [phone] Comment on above: This test was perfor med using the TPSA assay method for [employer] chemistry system. Values obtained with differentassay methods cannot be used interchangably.When changing PSA assays in the course of monitoring apatient, additional sequential testing should be carriedout to confirm baseline values. Serum or plasma albumin gee urement (mass/volume)on 10-24-2021 Albumin [Mass/Vol] 3.6 g/dL 3.2-5.0 [facility] Work Phone: [phone] Serum or plasma albumin/glob ulin mass ratioon 10-24-2021 Albumin/Globulin [Mass ratio] 0.9 {ratio} 0.9-2.4 [facility] Work Phone: Serum or plasma calcium gee urement (mass/volume)on 10-24-2021 Calcium [Mass/Vol] 8.6 mg/dL 8.5-10.1 [facility] Work Phone: Serum or plasma cholesterol in HDL measurement (mass/volume)on 10-24-2021 Cholesterol in HDL [Mass/Vol] 33 mg/dL >40 [facility] Work Phone: Comment on above: The drugs N-Acetylcy steine and Metamizole may falsely depress this assay. Reference Range HDL <40 mg/dL Low HDL Cholesterol HDL >or= 60 mg/dL High HDL Cholesterol Serum or plasma cholesterol in VLDL measurement (mass/volume)on 10-24-2021 Cholesterol in VLDL [Mass/Vol] [facility] Work Phone: Comment on above: Test not performed Serum or plasma creatinine m easurement (mass/volume)on 10-24-2021 Creatinine [Mass/Vol] 0.96 mg/dL 0.70-1.30 [facility] Work Phone: Comment on above: The validity of the calculated GFR & GFRAA in patients over 70 years has not been determined. Clinical correlation is essential. Serum or plasma low density lipoprotein (LDL) cholesterol measurement (mass/volume)on 10-24-2021 Cholesterol in LDL [Mass/Vol] [facility]: Comment on above: Test not performed Serum or plasma urea nitroge n measurement (mass/volume)on 10-24-2021 Urea nitrogen [Mass/Vol] 15 mg/dL 7-18 [facility] Work Phone: [phone] Thin prep Papanicolaou smear with manual screeningon 10-24-2021 Thin prep Papanicolaou smear with manual screening 17 U/L 15-37 [facility] Work Phone: [phone] Thin prep Papanicolaou smear with manual screening 4 5-15 [facility] Work Phone: [phone] Culture, urine Bacteria identified Cx Nom (U) Culture exhibits no growth. [facility] Work Phone: [phone] Ova and parasites Ova and parasites identified LM Nom (Unsp spec) [facility] Work Phone: [phone] Vital Signs Date Time Vital Sign Value Performing Clinician Faci lity 03-15-2022 05:33-0400 Diastolic blood pressure 82 mm[Hg] [facility] Work Phone: 03-15-2022 05:33-0400 Heart rate 81 /min [facility] Work Phone: 03-15-2022 05:33-0400 Respiratory rate 16 /min [facility] Work Phone: 03-15-2022 05:33-0400 SaO2% (BldA) [Mass fraction] 97 % [facility] Work Phone: 03-15-2022 05:33-0400 Systolic blood pressure 140 mm[Hg] [facility] Work Phone: 03-15-2022 03:07-0400 Body height 180.34 cm [facility] Work Phone: 03-15-2022 03:07-0400 Body mass index (BMI) [Ratio] 40.9 kg/m2 [facility] Work Phone: 03-15-2022 03:07-0400 Body temperature 97 [degF] [facility] Work Phone: 03-15-2022 03:07-0400 Body weight 133.2 kg [facility] Work Phone: Encounters Encounter Date Encounter Type Care Provider Facility Start: 04-17-2025 End: 04-17-2025 ambulatory Perico Monteiro Facility:[facility] Start: 12-05-2024 End: 12-05-[address] Perico Monteiro MD Work Phone: [facility] Work Phone: Start: 12-05-2024 End: 12-05-[address] [facility] Work Phone: Start: 12-05-2024 End: 12-05-2024 ambulatory Perico Monteiro Facility:[facility] Start: 11-30-2024 End: 11-30-[address] Perico Monteiro MD -Laboratory [facility] Start: 11-30-2024 End: 11-30-[address] Perico Monteiro MD Work Phone: [facility] Work Phone: Start: 11-28-2024 End: 11-28-[address] Perico Monteiro MD Work Phone: [facility] Work Phone: Start: 11-28-2024 End: 11-28-[address] Perico Monteiro MD -Laboratory Work Phone: Start: 11-28-2024 End: 11-28-2024 ambulatory Perico Monteiro Facility:[facility] Start: 06-19-2024 End: 06-19-2024 ambulatory Perico Monteiro Facility:[facility] Start: 10-19-2023 End: 10-19-2023 ambulatory [facility] Work Phone: Start: 10-19-2023 End: 10-19-2023 Patient encounter procedure [facility] Start: 08-24-2023 End: 08-24-2023 ambulatory [facility] Work Phone: Start: 08-24-2023 End: 08-24-2023 Patient encounter procedure [facility] Work Phone: Start: 03-18-2023 End: 03-18-2023 ambulatory [facility] Work Phone: Start: 03-18-2023 End: 03-18-2023 Patient encounter procedure [facility] Work Phone: Start: 09-15-2022 End: 09-15-[address] Cornelius Monteiro Work Phone: [facility] Work Phone: Start: 09-15-2022 End: 09-15-[address] Cornelius Monteiro Work Phone: [facility] Start: 07-30-2022 End: 07-30-[address] Cornelius Monteiro Work Phone: [facility] Work Phone: Start: 07-30-2022 End: 07-30-[address] [facility] Start: 07-22-2022 End: 07-22-2022 Non-patient / Non-visit Dr. Cornelius Monteiro Work Phone: [facility] Start: 07-22-2022 End: 07-22-2022 ambulatory [facility] Work Phone: Start: 07-22-2022 End: 07-22-2022 Patient encounter procedure [facility]-Pulmonary Services/Neurology Start: 07-21-2022 End: 07-21-2022 ambulatory [facility] Work Phone: Start: 07-21-2022 End: 07-21-[address] [facility] Start: 05-20-2022 End: 05-20-2022 ambulatory [facility] Work Phone: Start: 05-20-2022 End: 05-20-2022 Patient encounter procedure [facility]-Cat Scan, [facility] Start: 05-12-2022 End: 05-12-2022 ambulatory [facility] Work Phone: Start: 05-12-2022 End: 05-12-2022 Patient encounter procedure [facility]-Laboratory, Specimen Start: 05-04-2022 End: 05-04-2022 Patient encounter procedure [facility]-Ultrasound, [facility] Start: 04-20-2022 End: 04-20-2022 ambulatory [facility] Work Phone: Start: 04-20-2022 End: 04-20-2022 Patient encounter procedure [facility]-Laboratory, [facility] Start: 03-15-2022 End: 03-15-2022 Emergency department patient visit [facility]-Emergency Department Start: 02-17-2022 End: 02-17-2022 ambulatory [facility] Work Phone: Start: 02-17-2022 End: 02-17-2022 Patient encounter procedure [facility]-Laboratory, Specimen Start: 01-06-2022 End: 01-06-2022 Patient encounter procedure [facility]-Radiology, [place] Start: 10-24-2021 End: 10-24-2021 Patient encounter procedure [facility]-Laboratory Procedures Date Procedure Procedure Detail Performing Clinician Start: 12-05-2024 MRI of joint of lowe r extremity Dr. Perico Monteiro MD Work Phone: Start: 11-30-2024 Prostate specific an tigen measurement [...] of Treatment Date Care Activity Detail Author Start: 12-05-2024 MRI of joint of lowe r extremity Upper Ext Joint Only(Routine) [facility] Patient Education ED Kidney Ston e w/ Colic [facility] Work Phone: Patient referral [facility] Work Phone: Immunizations Immunization Date Immunization Notes Care Provider Fa cility 06-17-2021 Covid (Moderna) [facility] 10-16-2020 Covid ([facility]) [facility] 09-18-2020 Covid ([facility]) [facility] Payers Date Payer Category Payer Unknown [id number] 2024 Medicare [id number] bee [id number] 2024 Self-pay [id number] 2016 [id number] Unknown [id number] [id number] Unknown [id number] [id number] [id number] Unknown [id number] [id number] [id number] Unknown [id number] [id number] [id number] Unknown [id number] [id number] [id number] Social History Date Type Detail Facility Start: 11-25-2020 End: 03-15-2022 Tobacco smoking status NHIS Unknown if ever smoked [facility] Start: 11-25-2020 Non-smoker [facility] Start: 1955 Sex Assigned At Male [facility] Start: 03-15-2022 Tobacco smoking stat us NHIS Never smoked tobacco (finding) [facility] Evaluation note Note Date & Type Note Facility Evaluation note No assessment information availa ble [facility] Work Phone: Reason for referral (narrative) Note Date & Type Note Facility Reason for referral (narrative) No reason for referral information available [facility] Work Phone: Chief Complaint and Reason for Visit Chief Complaint E ORDER Chief Complaint complaint Chief Complaint complaint ABNORMAL FECES ABDOMINAL PAIN Chief Complaint ABNORMAL FECES ABDOMINAL PAIN PRE PROCEDURAL/LABWORK SCANNED RENAL CALCULI Chief Complaint ABNORMAL FECES ABDOMINAL PAIN PRE PROCEDURAL/LABWORK SCANNED PREOP RENAL CALCULI Chief Complaint PRE PROCEDURAL/LABWO RK SCANNED PREOP RENAL CALCULI LABS AND STOOL Chief Complaint EORDER Chief Complaint Admit Date LEFT SHOULDER December 05, 2024 7:24a m Family History No Family History Records Found Relationship Condition Age at Onset Recorded Date/T leah father Diabetes mellitus Unknown Malignant neoplasm Unknown mother Coronary artery disease Unknown brother Malignant neoplasm Unknown Advance Directives No Advanced Directives Records Found Advance Directive Response Recorded Date/ Time Living Will No November 25, 2020 7 :30am Power of [employer] No November 25, 2020 7:30am Advance Directive Response Recorded Date/ Time Living Will No March 15, 2022 3:14am Power of [employer] No March 3:14am Advance Directive Response Recorded Date/ Time Living Will No March 15, 2022 2:14am Power of [employer] No March 2:14am Summary Purpose Additional Source [...] Cornelius Monteiro MD Primary Care Provider, Atte nding Provider Active Team Status: Inactive Member Role [...] Attending Provider Active Start: November 30, 2024 Team Status: Inactive Member Role Status Dates Dr. Perico Monteiro MD Primary Care Provider Acti ve Start: November 30, 2024 End: November 30, 2024 Dr. Perico Monteiro MD Attending Provider Active Start: November 30, 2024 End: November 30, 2024 Team Status: Active Member Role Status Dates Dr. Perico Monteiro MD Primary Care Provider Acti ve Start: December 05, 2024 Dr. Perico Monteiro MD Attending Provider Active Start: December 05, 2024 Dr. Perico Monteiro MD Referring Provider Active Start: December 05, 2024 Team Status: Inactive Member Role Status Dates Dr. Perico Monteiro MD Primary Care Provider Acti ve Start: December 05, 2024 End: December 05, 2024 Dr. Perico Monteiro MD Attending Provider Active Start: December 05, 2024 End: December 05, 2024 Dr. Perico Monteiro MD Referring Provider Active Start: December 05, 2024 End: December 05, 2024 (unrecognized sect ion and content) No Status Records Found INFORMATION SOURCE (unrecogn ized section and content) DATE CREATED AUTHOR 05/04/2025 [facility] FOR RECORDS PERTAINING TO PATIENTS WHO ARE [...] BE BASED ON THE PRIMARY CLINICAL RECORDS. [facility] [employer] [facility]. provides no warranty or guarantee of the accuracy or completeness of information in this document.
[2025-05-21 09:40] LABS: Hematocrit 52.8 % (40-54); Hemoglobin 17.3 g/dL (13.0-16.5); Immature Granulocytes Count 0.050 X10^3/uL (0.0-0.0); Mean Corp Hgb Conc 32.8 g/dL (32-36); Mean Corpuscular Volume 92.8 fL (80-94); Mean Platelet Vol. 9.6 fl (6.2-12.0); NRBC Flagged by Analyzer 0 % (0-5); Platelet Count 196 K/mm3 (150-450); RBC Distribution Width CV 13.7 % (11.6-14.6); RBC Distribution Width SD 46.7 fl (35.1-43.9); Red Blood Count 5.69 M/mm3 (4.6-6.2); White Blood Count 6.6 K/mm3 (4.4-11.0)
[2025-05-21 10:12] LABS: Anion Gap 8 (5-15); BUN 22 mg/dL (4-19); BUN/Creat Ratio 27.0 RATIO (10-20); Calcium,Total 9.0 mg/dL (7.6-11.0); Carbon Dioxide 29.9 mmol/L (21.0-32.0); Chloride 103 mmol/L (98-108); Glucose 111 mg/dL (70-99); Potassium 4.5 mmol/L (3.3-5.1)
== END | disposition home or self-care (01) ==
PROVIDERS: PCP Family Medicine; Referring Provider Student in an Organized Health Care Education/Training Program; Visit Provider Student in an Organized Health Care Education/Training Program
DX: Z01.818 Encounter for other preprocedural examination (principal)
CPT/HCPCS: 36415; 80048; 83036; 85025; 93005

== ENCOUNTER → 2025-07-01 | Outpatient (CLI) | payer MEDICARE, OTHER, SELFPAY ==
[2025-07-01 18:06] LABS: AST(SGOT) 24 U/L (<=37); Alanine Aminotransfer ALT/SGPT 28 U/L (<=46); Albumin, Serum 4.2 g/dL (3.4-4.8); Alkaline Phosphatase 67 U/L (40-129); Anion Gap 10 (7-18); BUN 29 mg/dL (4-19); BUN/Creat Ratio 31.7 RATIO (10-20); Calcium,Total 9.4 mg/dL (7.6-11.0); Carbon Dioxide 31.4 mmol/L (20.0-29.0); Chloride 101 mmol/L (96-106); Globulin 2.5 g/dL (2.2-4.2); Glucose 113 mg/dL (70-99); Magnesium 2.0 mg/dL (1.5-2.2); Potassium 4.3 mmol/L (3.5-5.1)
== END | disposition home or self-care (01) ==
LOC: MFPLAB 16:47
PROVIDERS: PCP Family Medicine; Visit Provider Family Medicine
DX: R60.0 Localized edema (principal)
CPT/HCPCS: 36415; 80053; 83735